=== PATIENT | male | born 1955 | race Native Hawaiian/Other Pacific Islander ===

== ENCOUNTER 2016-09-07 04:55 | Emergency (ER) | payer MEDICAID ==
[2016-09-07 04:56] VITALS: BMI 23.3
[2016-09-07 05:38] LABS: RBC URINE 3058 /hpf (0-3); URINE BILIRUBIN NEGATIVE (NEGATIVE); URINE BLOOD 2+ (NEGATIVE); URINE COLOR Red (YELLOW); URINE GLUCOSE (UA) 1+ mg/dL (Normal); URINE HYALINE CAST >20 /lpf (0-2); URINE KETONE NEGATIVE (NEGATIVE); URINE LEUKOCYTE ESTERASE TRACE Leu/uL (Negative); URINE PROTEIN 2+ mg/dL (NEGATIVE); URINE UROBILINOGEN NORMAL mg/dL (0.2-1.0); WBC CLUMPS MANY /hpf; WBC URINE 1117 /hpf (0-5)
--- NOTE | 2016-09-07 05:53 | C.PDOC ---
Addendum entered and electronically signed by Ivett Cobian PA 09/07/16 11 :34: Disposition Discussed With Dr.: Hawa Tristan Comment: leg bag changed. pt was hydrated, hematuria clearing, urine now pale clear pink. Doctor Will See Patient In The: Hospital Counseled Patient/Family Regarding: Studies Performed, Need For Followup Clinical Impression: Hematuria Disposition: HOME/ ROUTINE Disposition Time: 11:32 Condition: IMPROVED Additional Instructions: Drink increased fluids. Dr Tristan will be in touch with you to arrange future appointment. Return to ER for any worsening symptoms. Instructions: Acute Hematuria (ED) Stand Alone Forms: General Discharge Instructions Original Note: History Of Present Illness 61 year old patient, with a past medical history of hypertension, hypercholesterolemia, hyperlipidemia, benign prostatic hyperplasia with indwelling suprapubic catheter, presents to the ED complaining of painless hematuria since 4 AM. Pt reports speaking with Dr Azalea Franco who advised ED visit and he will see pt in ED. Pt denies dysuria, abdominal pain, fever, vomiting or back pain Time Seen by Provider: 09/07/16 05:14 Chief Complaint (Nursing): Male Genitourinary History Per: Patient History/Exam Limitations: no limitations Onset/Duration Of Symptoms: Days Current Symptoms Are (Timing): Still Present Pain Scale Rating Of: 3 Alleviating Factors: None Recent travel outside of the [place]: No Past Medical History Reviewed: Historical Data, Nursing Documentation, Vital Signs Vital Signs: Last Vital Signs Temp 97.9 F 09/07/16 05:07 Pulse 74 09/07/16 05:07 Resp 16 09/07/16 05:07 BP 155/87 H 09/07/16 05:07 Pulse Ox 97 09/07/16 05:55 - Medical History PMH: Anemia, Benign Prostatic Hyperplasia, HTN, Hypercholesterolemia, Hyperlipidemia Surgical History: CABG (2012) - [facility] Procedures CONTROL BLEEDING IN GENITOURINARY TRACT, ENDO (11/21/15) DESTRUCTION OF BLADDER NECK, VIA OPENING (01/28/16) DILATION OF URETHRA, ENDO (07/04/16) DILATION OF URETHRA, VIA NATURAL OR ARTIFICIAL OPENING (03/22/16) DRAINAGE OF BLADDER WITH DRAINAGE DEVICE, PERC APPROACH (03/22/16) EXCISION OF DESCENDING COLON, ENDO, DIAGN (09/07/15) EXCISION OF LEFT UPPER LEG SKIN, EXTERNAL APPROACH, DIAGN (07/04/16) EXCISION OF STOMACH, ENDO, DIAGN (09/07/15) EXTIRPATION OF MATTER FROM BLADDER, ENDO (11/21/15) FLUOROSCOPY OF KIDNEYS, URETERS AND BLADDER (11/21/15) PLAIN RADIOGRAPHY OF BLADDER AND URETHRA (07/04/16) RESECTION OF PROSTATE, ENDO (01/01/16) Family History: States: Unknown Family Hx - Social History Hx Tobacco Use: No Hx Alcohol Use: Yes (socially) Hx Substance Use: No - Immunization History Hx Tetanus Toxoid Vaccination: No Hx Influenza Vaccination: Yes (06/2015) Hx Pneumococcal Vaccination: Yes Review Of Systems Except As Marked, All Systems Reviewed And Found Negative. Genitourinary: Positive for: Hematuria Physical Exam - Physical Exam Appears: Non-toxic, No Acute Distress Skin: Warm, Dry Eye(s): bilateral: Normal Inspection Gastrointestinal/Abdominal: Normal Exam, Soft, No Tenderness, Other (suprapubic catheter in place) Back: Normal Inspection, No CVA Tenderness ED Course And Treatment O2 Sat by Pulse Oximetry: 97 (RA) Pulse Ox Interpretation: Normal Progress Note: UA reviewed- Spoke with Dr Tristan who called the ED and will come to ER by 7:30 to replace catheter. Pt is stable , comfortable Disposition Counseled Patient/Family Regarding: Diagnosis, Need For Followup - Disposition Disposition: HOME/ ROUTINE Disposition Time: 06:39 Condition: STABLE - Clinical Impression Clinical Impression: Hematuria, UTI (urinary tract infection) - PA / WEB DEVELOPMENT DIRECTOR / Resident Statement MD/DO has reviewed & agrees with the documentation as recorded. - Scribe Statement The provider has reviewed the documentation as recorded by the Scribe Mellisa Duong All medical record entries made by the Scribe were at my direction and personally dictated by me. I have reviewed the chart and agree that the record accurately reflects my personal performance of the history, physical exam, medical decision making, and the department course for this patient. I have also personally directed, reviewed, and agree with the discharge instructions and disposition. Physician Patient Turnover Patient Signed Over To: Ivett Cobian Handoff Comments: Pending Dr tristan - evaluation
[2016-09-07 10:49] VITALS: TEMP 97.3
[2016-09-07 12:02] VITALS: BP 152/81; PULSE 70; RESP 16; O2SAT 98
== END 2016-09-07 12:03 | disposition home or self-care (01) ==
LOC: C.ER 04:55
DX: N39.0 Urinary tract infection, site not specified (principal); R31.9 Hematuria, unspecified

== ENCOUNTER 2016-10-28 09:00 | Day surgery (SDC) | payer MEDICAID ==
[2016-10-28 21:13] LABS: ALB/GLOB RATIO 1.2 (1.0-2.1); ALKALINE PHOSPHATASE 78 U/L (38-126); ALT/SGPT 15 U/L (21-72); AST/SGOT 40 U/L (17-59); BLOOD UREA NITROGEN 12 mg/dL (9-20); CALCIUM 8.6 mg/dl (8.6-10.4); CARBON DIOXIDE 22 mmol/L (22-30); CHLORIDE 103 mmol/L (98-107); GFR AFRICAN-AMERICAN > 60; GLUCOSE,RANDOM 88 mg/dL (75-110); POTASSIUM 4.4 mmol/L (3.6-5.2); SODIUM 137 mmol/L (132-148); TOTAL PROTEIN 8.1 g/dL (6.3-8.3)
--- NOTE | 2016-10-28 21:26 | RAD ---
PROCEDURE: CHEST RADIOGRAPH, 1 VIEW HISTORY: COMPARISON: None available. FINDINGS: LUNGS: No focal infiltrate or effusion. PLEURA: No pneumothorax or pleural fluid seen. CARDIOVASCULAR: Status post median sternotomy and CABG. OSSEOUS STRUCTURES: No significant abnormalities. VISUALIZED UPPER ABDOMEN: Normal. OTHER FINDINGS: None. IMPRESSION: No active disease.
[2016-10-28 22:35] LABS: BASO # 0.1 K/uL (0.0-0.2); BASO % 1.1 % (0.0-2.0); EOS # 0.3 K/uL (0.0-0.7); EOS % 4.5 % (0.0-4.0); HEMATOCRIT 43.3 % (35.0-51.0); LYMPH # 1.5 K/uL (1.0-4.3); LYMPH % 19.2 % (20.0-40.0); MEAN CELL VOLUME 88.7 fL (80.0-94.0); MEAN CORPUSCULAR HEMOGLOBIN 29.3 pg (27.0-31.0); MEAN PLATELET VOLUME 7.4 fL (7.2-11.7); MONO # 0.7 K/uL (0.0-0.8); MONO % 9.7 % (0.0-10.0); NRBC % 0.1 % (0.0-2.0); RED CELL DISTRIBUTION WIDTH 14.2 % (11.5-14.5); WHITE BLOOD COUNT 7.6 K/uL (4.8-10.8)
--- NOTE | 2016-10-29 15:22 | RAD ---
PROCEDURE: Cystogram HISTORY: URINARY RETENTION COMPARISON: 06/15/2016 TECHNIQUE: A percussion welding machine operator radiograph demonstrates an unremarkable bowel gas pattern. No masses or abnormal intra-abdominal calcifications are seen. FINDINGS: The examination is performed 3 suprapubic tube. There is a large right-sided bladder diverticulum. Catheter balloon is seen inflated within the urinary bladder. There is contrast filling an irregularly dilated prostatic and posterior penile urethra. There is a small amount of retrograde filling of the distal left ureter. IMPRESSION: Right-sided bladder diverticulum.
--- NOTE | 2016-10-29 15:24 | RAD ---
PROCEDURE: Intraoperative fluoroscopy HISTORY: URETERAL STRICTURE, RETENTION COMPARISON: Cystogram 10/28/2016 TECHNIQUE: Intraoperative fluoroscopy was provided for a cystogram. Total time of fluoroscopy is less than 1 hour. FINDINGS: Seven fluoroscopic spot films are submitted. Films are on file for review. IMPRESSION: Fluoroscopy provided.
--- NOTE | 2016-11-07 13:54 | OP ---
PROCEDURE DATE: 10/28/2016 PREOPERATIVE DIAGNOSES: Urinary retention, urethral stricture disease, severe voiding dysfunction, C hristmas tree bladder, hematuria and catheter difficulty. POSTOPERATIVE DIAGNOSES: Urinary retention, urethral stricture disease, severe voiding dysfunction, Sanford tree bladder, hematuria and catheter difficulty. PROCEDURE: Today is a removal of a cystostomy tube, insertion of a new cystostomy tube, and a cystog blake, and a retrograde urethrogram. FINDINGS: Contrast seems to go from the tip of the penis all the way through and through, which is r elatively new because previously it was fairly blocked. We have had a few times where it has gone through. However, despite that, the other finding is I can not get even a 4-Bulgarian, even a 3-Bulgarian actually for that matter, filiform through that block, but at least contrast is now going through. The bladder, everything else, there are no other complicatio ns and the findings are similar for trabeculated bladder with cellules and Sanford tree pattern (it is possibly even, as mentioned previously, the cystostomy tube is in a diverticulum rather than thro ugh the wall, difficult to tell). At the termination of the procedure, the cystostomy tube was in good location. There were no complications. BLOOD LOSS: Less than 10 mL INDICATIONS: See the history and physical for further details. It is a separately dictated note. T he patient presented as an emergency for the above-listed procedure. PROCEDURE ITSELF: After obtaining informed consent, the patient was placed on the table, routine mon itors placed, timeouts were called to confirm the patient and positioning. The patient requires orion le sedation for the procedure. Anesthesia gives this. The procedure continues. We remove the old catheter, insert a new catheter, make sure it is in place . We do a cystogram and then today actually, we also wanted to see if we could get through. The alondra ramirez has been asking, and I am still trying, to see if we can get him a urethrotomy under direct visi on or a cut to the light approach. We have tried a lot of different things before. The other thing I have been asking the patient is to talk to his insurance company about getting a second opinion and even consider urethral stricture repair, open repair, which is something that I do not do, but we ar e working on that I want to make sure the catheter is in place and working well. So the patient was on the table. We removed the catheter, inserted a new catheter, did a cystogram, did a retrograde urethrogram. Contrast is noted to trickle through. Films are submitted to the radiologist. Further plans will follow. Salvador Tristan MD cc: [phone] TT: 11/07/2016 13:53:38 en
== END 2016-10-28 15:00 | disposition home or self-care (01) ==
LOC: C.ER 09:40 → C.SDS 11:00 → C.ER 18:16 → C.SDS 18:17 → C.ER 18:20 → C.SDS 18:20
PROVIDERS: ATTEND Urology
DX: R33.9 Retention of urine, unspecified (principal); N35.9 Urethral stricture, unspecified; A18.1 Tuberculosis of genitourinary system

== ENCOUNTER 2016-10-31 10:35 | Observation (INO) | payer MEDICAID ==
[2016-10-31 10:36] VITALS: BMI 23.3
--- NOTE | 2016-10-31 11:48 | C.PDOC ---
History Of Present Illness 61-year-old male, presents to the emergency department with complaints of new onset suprapubic os pain for the past several days. Patient had a routine suprapubic catheter change on 10/28. States that since then, he has been experiencing pain when he is pushing to have a bowel movement. No abdominal pain or herniation. States the os is draining normal urine. Patient is on Colace. No straining or hard movements. No rectal pain. patient states "It feels like I want to go now, but I'm afraid to because it hurts." NEW ONSET SUPRAPUBIC OS PAIN X SEVERAL DAYS. PT HAD ROUTINE SUPRAPUBIC CATH CHANGED 10/28. SINCE THEN, PUSHING FOR BM, HAS PAIN TO SUPRAPUBIC CATH. NO PAIN OR HERNIATION. DRAINING NORMAL URINE. ON COLACE. NO STRAINING OR HARD MOVEMENTS. NO ABD OR RECTAL PAIN. "FEELS LIKE I WANT TO GO NOW, BUT IM AFRAID TO BECAUSE IT HURTS" EXAM: SUPRAPUBIC TUBE IN PLACE. NO BLEEDING, HERNIATION TENDERNESS Time Seen by Provider: 10/31/16 10:45 Chief Complaint (Nursing): Male Genitourinary History Per: Patient History/Exam Limitations: no limitations Onset/Duration Of Symptoms: Days Current Symptoms Are (Timing): Still Present Severity: Moderate Past Medical History Reviewed: Historical Data, Nursing Documentation, Vital Signs Vital Signs: Last Vital Signs Temp 98.6 F 10/31/16 10:44 Pulse 83 10/31/16 10:44 Resp 17 10/31/16 10:44 BP 144/79 10/31/16 10:44 Pulse Ox 97 10/31/16 12:28 - Medical History PMH: Anemia, Benign Prostatic Hyperplasia, HTN, Hypercholesterolemia, Hyperlipidemia Denies: Chronic Kidney Disease Surgical History: CABG (2012) - [facility] [place] Procedures CONTROL BLEEDING IN GENITOURINARY TRACT, ENDO (11/21/15) DESTRUCTION OF BLADDER NECK, VIA OPENING (01/28/16) DILATION OF URETHRA, ENDO (07/04/16) DILATION OF URETHRA, VIA NATURAL OR ARTIFICIAL OPENING (03/22/16) DRAINAGE OF BLADDER WITH DRAINAGE DEVICE, PERC APPROACH (03/22/16) EXCISION OF DESCENDING COLON, ENDO, DIAGN (09/07/15) EXCISION OF LEFT UPPER LEG SKIN, EXTERNAL APPROACH, DIAGN (07/04/16) EXCISION OF STOMACH, ENDO, DIAGN (09/07/15) EXTIRPATION OF MATTER FROM BLADDER, ENDO (11/21/15) FLUOROSCOPY OF KIDNEYS, URETERS AND BLADDER (11/21/15) PLAIN RADIOGRAPHY OF BLADDER AND URETHRA (07/04/16) RESECTION OF PROSTATE, ENDO (01/01/16) Family History: States: Unknown Family Hx - Social History Hx Tobacco Use: No Hx Alcohol Use: Yes (socially) Hx Substance Use: No - Immunization History Hx Tetanus Toxoid Vaccination: No Hx Influenza Vaccination: Yes (06/2015) Hx Pneumococcal Vaccination: Yes Review Of Systems Except As Marked, All Systems Reviewed And Found Negative. Constitutional: Negative for: Fever Gastrointestinal: Negative for: Vomiting, Abdominal Pain Genitourinary: Negative for: Dysuria, Frequency, Penile Discharge, Scrotal Pain , Rash Musculoskeletal: Negative for: Back Pain Skin: Negative for: Rash Neurological: Negative for: Headache, Dizziness Physical Exam - Physical Exam Appears: Non-toxic, No Acute Distress Skin: Warm, Dry, No Rash Eye(s): bilateral: Normal Inspection Nose: Normal Oral Mucosa: Moist Lips: Normal Appearing Neck: Normal ROM Cardiovascular: Rhythm Regular, No Murmur Respiratory: Normal Breath Sounds, No Accessory Muscle Use Gastrointestinal/Abdominal: Soft, No Tenderness, Other (SUPRAPUBIC TUBE IN PLACE. NO BLEEDING, HERNIATION, OR TENDERNESS) Neurological/Psych: Oriented x3 ED Course And Treatment O2 Sat by Pulse Oximetry: 97 Progress - Re-Evaluation Re-evaluation Note: 10/31/16 12:02 D/W DR Yogesh TRISTAN AWARE OF ER FINDINGS. STATES TO ADMIT TO HIM, WILL TAKE HIM TO O.R. TOMORROW DUE TO COMPLICATED ANATOMY. NO LABS REQUIRED. PT REQUESTING ENEMA TO HELP BM. - Data Reviewed Data Reviewed: Old records - Continuity of Care Discussed patient case with:: Patient Discussed pt. case with [facility] consultant/specialty: Urology Disposition Counseled Patient/Family Regarding: Diagnosis - Disposition Disposition: HOME/ ROUTINE Disposition Time: 12:03 Condition: STABLE - POA Present On Arrival: None - Clinical Impression Clinical Impression: Suprapubic catheter dysfunction - Scribe Statement The provider has reviewed the documentation as recorded by the Chapincito Poole All medical record entries made by the Mishelibyogesh were at my direction and personally dictated by me. I have reviewed the chart and agree that the record accurately reflects my personal performance of the history, physical exam, medical decision making, and the department course for this patient. I have also personally directed, reviewed, and agree with the discharge instructions and disposition. Decision To Admit - Pt Status Changed To: Hospital Disposition Of: Observation - . Bed Request Type: Regular Admitting Physician: Tomy Tristan Patient Diagnosis: Suprapubic catheter dysfunction
[2016-10-31] MEDS: Hydrocortisone 2.5% Rectal Cream(30 gm) PR SCH (18:15)
[2016-11-01] MEDS: Hydrocortisone 2.5% Rectal Cream(30 gm) PR SCH ×2 (10:21→17:40)
[2016-11-02] MEDS ORDERED: Pneumococcal 23-Valent Vaccine IM ONE (10:00)
[2016-11-02] MEDS ORDERED: Iohexol 240 200 ML IJ ONE (16:42)
[2016-11-02] MEDS ORDERED: Lactated Ringer's 1,000 ML IV ONE (16:45)
[2016-11-02] MEDS ORDERED: Midazolam 2 MG/2 ML VIAL ONE (16:46)
[2016-11-02] MEDS ORDERED: Propofol 10 mg/ml Inj (20 ML) ONE (16:46)
[2016-11-02] MEDS: Hydrocortisone 2.5% Rectal Cream(30 gm) PR SCH (20:30)
--- NOTE | 2016-11-02 21:35 | PN ---
DATE: 11/02/2016 See the history and physical. We admitted the patient with catheter pain. We were not able today to get to the operating room. It is currently about 7 p.m. at night. If they have not kept the patient n.p.o. He was feeling and tired. We fed the patient and we are going to try again for tomorrow. There are no other changes noted. Salvador Tristan MD cc: [phone] TT: 11/02/2016 21:34:58 Confirmation # [id number] Dictation # [id number] mn
--- NOTE | 2016-11-02 21:44 | OP ---
PROCEDURE DATE: 11/02/2016 PREOPERATIVE DIAGNOSES: Urinary retention, voiding dysfunction, suprapubic catheter failure and pain . PROCEDURE: Removal of suprapubic catheter, insertion of new catheter and cystogram. SURGEON: Salvador Tristan MD BLOOD LOSS: Less than 10 mL. COMPLICATIONS: None. FINDINGS: The catheter is in place, but the patient was complaining of pain and discomfort. He has had many tubes and he is not complaining, so I am glad we changed it, but there were no abnormal findings. PROCEDURE: After obtaining informed consent, the patient placed on the table, routine monitors place d, timeouts were called . The old was removed and a new one was inserted, but grossly it looks like it is in place. The new one is in the same location. Cystogram confirmed its positioning. The patient tolerated thi s without complication. Again, we do this always with the patient with a little anesthesia. The pat ashley is not able to tolerate the procedure without such. Salvador Tristan MD cc: [phone] TT: 11/02/2016 21:44:09 brandy
--- NOTE | 2016-11-02 21:59 | HP ---
REASON FOR ADMISSION: Catheter failure. HISTORY OF PRESENT ILLNESS: A very pleasant gentleman who has a lot of anxiety, very pleasant about the whole matter who has urethral stricture, urinary retention and has a cystostomy tube. He called me and said it is not working properly. He comes to the ER. It is working, but he said it is hurtin g, is painful, so we are going to admit him to the hospital. He does not like it changed without a l ittle anesthesia, plus he has a very trabeculated bladder with a Sanford tree bladder. So we will change with anesthesia. Once we make sure he is stable, but we are admitting him to the hospital. T he patient has much anxiety and difficult for him to care for the catheter alone. PAST MEDICAL AND SURGICAL HISTORY: Otherwise, no changes. The patient right now documented he previ ous was a patient of . He is here now. REVIEW OF SYSTEMS: Listed above, noncontributory. SOCIAL HISTORY: As mentioned above. MEDICATIONS: See the chart. He is going to see Dr. Prince. This is his new doctor. REVIEW OF SYSTEMS: Listed above, noncontributory. PHYSICAL EXAMINATION: GENERAL: He is well-nourished male in no apparent distress. VITAL SIGNS: Within normal limits. . GENITOURINARY: Normal male. Cystostomy tube in good location. He has normal phallus with no testicular masses. DIAGNOSES: Urinary retention, urethral stricture disease, severe voiding dysfunction and much anxiet y. So I have discussed options with the patient. Today, we are going to admit him to the hospital and t hen depending on the schedule, we are going to try to get him on the schedule for a change. We may e yudith consider cystoscopy depending. The last time we did this was , and he said that the cath eter has been bothering him; it was 10/28/2016. At that time, the patient had urine very nicely. Just now is having some trouble. PLAN: So the plan is as follows: Admission to the hospital, routine maintenance orders and then fur ther plans will follow. Salvador Tristan MD cc: [phone] TT: 11/02/2016 21:58:01 mn
[2016-11-03 08:26] VITALS: BP 128/77; PULSE 56; RESP 20; TEMP 98.9; O2SAT 97
[2016-11-03] MEDS ORDERED: Ergocalciferol 50,000 Intl Units Cap PO SCH (10:00)
--- NOTE | 2016-11-03 15:35 | RAD ---
PROCEDURE: Cystogram HISTORY: URINARY RETENTION COMPARISON: 10/28/2016 TECHNIQUE: Retrograde cystography was performed by Dr. Tomy Tristan. FINDINGS: A big 6 dealer radiograph demonstrates a suprapubic cystostomy tube. The bowel gas pattern is unremarkable. A single frontal view new from the cystogram demonstrates filling of the previously demonstrated right-sided bladder diverticulum. There is irregularity of the left lateral wall of the urinary bladder likely due to incomplete distention of the bladder. A postvoid film is submitted, demonstrating no additional findings. IMPRESSION: Right-sided bladder diverticulum. Please see the report of cystography by Dr. Tristan.
--- NOTE | 2016-11-25 19:57 | DS ---
The patient is admitted with urinary retention and voiding dysfunction, here for catheter issues. See the hospital course and daily progress notes to see how the patient did. At the time of discharge, he is in stable condition with an indwelling suprapubic catheter. Draining well. PLAN: Outpatient trial and follow. Overall, his hospital stay is otherwise unremarkable. Salvador Tristan MD cc: [phone] TT: 11/25/2016 19:56:15 pn
== END 2016-11-03 11:59 | disposition home or self-care (01) ==
LOC: C.ER 10:35 → C.9E 12:04 → C.6T 12:33
PROVIDERS: ADMIT Urology; ATTEND Urology
DX: T83.090A Other mechanical complication of cystostomy catheter, initial encounter (principal); R33.8 Other retention of urine; N32.89 Other specified disorders of bladder; I10 Essential (primary) hypertension; F41.9 Anxiety disorder, unspecified; E78.5 Hyperlipidemia, unspecified
CPT/HCPCS: 51705; 74430; 99285; C1769; G0378; J7120

== ENCOUNTER 2016-12-05 17:30 | Emergency (ER) | payer MEDICAID ==
[2016-12-05 17:31] VITALS: BMI 23.3
[2016-12-05 17:47] VITALS: O2SAT 99
--- NOTE | 2016-12-05 18:47 | C.PDOC ---
History Of Present Illness Patient is a 61 year old male who presents to the ER with a complaint of crusting around his suprapubic catheter; catheter was done by Dr. Tomy Tristan. Patient is requesting admission because he is afraid it will bleed again. Denies hematuria or abdominal pain. Time Seen by Provider: 12/05/16 18:03 Chief Complaint (Nursing): Medical Clearance History Per: Patient History/Exam Limitations: no limitations Onset/Duration Of Symptoms: Hrs Current Symptoms Are (Timing): Still Present Recent travel outside of the [place]: No Past Medical History Reviewed: Historical Data, Nursing Documentation, Vital Signs Vital Signs: Last Vital Signs Temp 98.9 F 12/05/16 19:46 Pulse 74 12/05/16 19:46 Resp 18 12/05/16 19:46 BP 144/86 12/05/16 19:46 Pulse Ox 99 12/05/16 19:46 - Medical History PMH: Anemia, Benign Prostatic Hyperplasia, HTN, Hypercholesterolemia, Hyperlipidemia Surgical History: CABG (2013 X3) - [facility] Procedures CONTROL BLEEDING IN GENITOURINARY TRACT, ENDO (11/21/15) DESTRUCTION OF BLADDER NECK, VIA OPENING (01/28/16) DILATION OF URETHRA, ENDO (07/04/16) DILATION OF URETHRA, VIA NATURAL OR ARTIFICIAL OPENING (03/22/16) DRAINAGE OF BLADDER WITH DRAINAGE DEVICE, PERC APPROACH (03/22/16) EXCISION OF DESCENDING COLON, ENDO, DIAGN (09/07/15) EXCISION OF LEFT UPPER LEG SKIN, EXTERNAL APPROACH, DIAGN (07/04/16) EXCISION OF STOMACH, ENDO, DIAGN (09/07/15) EXTIRPATION OF MATTER FROM BLADDER, ENDO (11/21/15) FLUOROSCOPY OF KIDNEYS, URETERS AND BLADDER (11/21/15) PLAIN RADIOGRAPHY OF BLADDER AND URETHRA (07/04/16) RESECTION OF PROSTATE, ENDO (01/01/16) Family History: States: Unknown Family Hx - Social History Hx Tobacco Use: No Hx Alcohol Use: No Hx Substance Use: No - Immunization History Hx Tetanus Toxoid Vaccination: No Hx Influenza Vaccination: Yes Hx Pneumococcal Vaccination: Yes Review Of Systems Gastrointestinal: Positive for: Other (Crusting around suprapubic catheter). Negative for: Abdominal Pain Genitourinary: Negative for: Hematuria Physical Exam - Physical Exam Appears: Non-toxic, No Acute Distress Skin: Normal Color, Warm, Dry Head: Atraumatic, Normacephalic Oral Mucosa: Moist Chest: Symmetrical, No Tenderness Cardiovascular: Rhythm Regular, No Murmur Respiratory: Normal Breath Sounds, No Rales, No Rhonchi, No Wheezing Gastrointestinal/Abdominal: Soft, No Tenderness, Other (Crusting around suprapubic catheter, no bleeding, tenderness or erythema. Clear urine passing to bag.) Neurological/Psych: Oriented x3, Normal Speech, Normal Cognition ED Course And Treatment - Laboratory Results Lab Interpretation: Normal (UA 18 WBC's) O2 Sat by Pulse Oximetry: 99 (Room air) Pulse Ox Interpretation: Normal Reevaluation Time: 19:11 Reassessment Condition: Improved - Physician Consult Information Outcome Of Conversation: 1904: d/w Dr. Tomy Tristan, nicolette to send home and f/u in office tomorrow 829 Medical Decision Making Medical Decision Making: mild crusting/blood @ suprapubic cath site. no infection Cleaned and bandaged f/u in Urology office tomorrow AM PRN on discharge pt had been wearing dark sunglasses throughout the eval and revealed a goopy dark greenish b/l eye discharge c/w bacterial conjunctivitis Pt claims this is a seasonal typical presentation for him. Garomycin opth drops Rx and explained. pt prefers to f/u with Optho or his PMD tomorrow with ? insight to this dx. Disposition Doctor Will See Patient In The: Office Counseled Patient/Family Regarding: Studies Performed, Diagnosis - Disposition Referrals: King Prince MD [Staff Provider] - Tomy Tristan MD [Staff Provider] - Disposition: HOME/ ROUTINE Disposition Time: 19:12 Condition: GOOD Additional Instructions: keep clean and bandaged Follow-up with Dr. Tomy Tristan in his office tomorrow/Tuesday Conjunctivitis 2 drops to each eye every 4 hours for 5 days Follow-up with Dr. Prince in 1-2 days for re-evaluation Prescriptions: Gentamicin Sulfate [Garamycin 0.3% Opth] 2 drop OS Q4H #1 bottle Instructions: How to Care for Your Suprapubic Catheter (ED), Conjunctivitis (ED ) - Clinical Impression Clinical Impression: Suprapubic catheter dysfunction - Scribe Statement The provider has reviewed the documentation as recorded by the Scribe King Mays All medical record entries made by the Mishelibyogesh were at my direction and personally dictated by me. I have reviewed the chart and agree that the record accurately reflects my personal performance of the history, physical exam, medical decision making, and the department course for this patient. I have also personally directed, reviewed, and agree with the discharge instructions and disposition.
[2016-12-05 19:02] LABS: RBC URINE < 1 /hpf (0-3); URINE BACTERIA MOD (<OCC); URINE BILIRUBIN NEGATIVE (NEGATIVE); URINE BLOOD 1+ (NEGATIVE); URINE COLOR Yellow (YELLOW); URINE GLUCOSE (UA) NORMAL (Normal); URINE KETONE NEGATIVE (NEGATIVE); URINE LEUKOCYTE ESTERASE 3+ Leu/uL (Negative); URINE PROTEIN NEGATIVE (NEGATIVE); URINE UROBILINOGEN NORMAL mg/dL (0.2-1.0); WBC URINE 18 /hpf (0-5)
[2016-12-05 19:47] VITALS: BP 144/86; PULSE 74; RESP 18; TEMP 98.9
== END 2016-12-05 19:46 | disposition home or self-care (01) ==
LOC: C.ER 17:30
DX: T83.89XA Other specified complication of genitourinary prosthetic devices, implants and grafts, initial encounter (principal); R23.4 Changes in skin texture

== ENCOUNTER 2017-01-18 10:50 | Observation (INO) | payer MEDICAID ==
[2017-01-18 10:50] VITALS: BMI 23.3
--- NOTE | 2017-01-18 12:25 | C.PDOC ---
History Of Present Illness 61 y/o male presents to ED with complaints of difficulty urinating and abdominal pain. Patient also reports not getting flow through Suprapubic catheter and requests a replacement. Patient denies fever, chills, dysuria, n/v/ d or any other complaints at this time. Time Seen by Provider: 01/18/17 11:24 Chief Complaint (Nursing): Abdominal Pain History Per: Patient History/Exam Limitations: no limitations Onset/Duration Of Symptoms: Days Current Symptoms Are (Timing): Still Present Quality Of Discomfort: "Pain" Past Medical History Reviewed: Historical Data, Nursing Documentation, Vital Signs Vital Signs: Last Vital Signs Temp 97.9 F 01/18/17 18:25 Pulse 72 01/18/17 18:25 Resp 18 01/18/17 18:25 BP 150/87 01/18/17 18:25 Pulse Ox 98 01/18/17 18:25 - Medical History PMH: Anemia, Benign Prostatic Hyperplasia, HTN, Hypercholesterolemia, Hyperlipidemia Surgical History: CABG (2013 X3) - [facility] Procedures CONTROL BLEEDING IN GENITOURINARY TRACT, ENDO (11/21/15) DESTRUCTION OF BLADDER NECK, VIA OPENING (01/28/16) DILATION OF URETHRA, ENDO (07/04/16) DILATION OF URETHRA, VIA NATURAL OR ARTIFICIAL OPENING (03/22/16) DRAINAGE OF BLADDER WITH DRAINAGE DEVICE, PERC APPROACH (03/22/16) EXCISION OF DESCENDING COLON, ENDO, DIAGN (09/07/15) EXCISION OF LEFT UPPER LEG SKIN, EXTERNAL APPROACH, DIAGN (07/04/16) EXCISION OF STOMACH, ENDO, DIAGN (09/07/15) EXTIRPATION OF MATTER FROM BLADDER, ENDO (11/21/15) FLUOROSCOPY OF KIDNEYS, URETERS AND BLADDER (11/21/15) PLAIN RADIOGRAPHY OF BLADDER AND URETHRA (07/04/16) RESECTION OF PROSTATE, ENDO (01/01/16) Family History: States: Unknown Family Hx - Social History Hx Tobacco Use: No Hx Alcohol Use: No Hx Substance Use: No - Immunization History Hx Tetanus Toxoid Vaccination: No Hx Influenza Vaccination: Yes Hx Pneumococcal Vaccination: Yes Review Of Systems Constitutional: Negative for: Fever, Chills Gastrointestinal: Positive for: Abdominal Pain. Negative for: Nausea, Vomiting , Diarrhea Genitourinary: Negative for: Dysuria Musculoskeletal: Negative for: Back Pain Skin: Negative for: Rash Physical Exam - Physical Exam Appears: No Acute Distress Skin: Normal Color, Warm, No Rash Head: Atraumatic, Normacephalic Eye(s): bilateral: PERRL, EOMI Oral Mucosa: Moist Neck: Supple Chest: Symmetrical, No Tenderness Cardiovascular: Rhythm Regular Respiratory: Normal Breath Sounds, No Rales, No Rhonchi, No Wheezing Gastrointestinal/Abdominal: Soft, No Guarding, No Rebound, Other (Mild suprapubic discomfort) Back: No CVA Tenderness Extremity: No Calf Tenderness, No Swelling Neurological/Psych: Oriented x3, Normal Speech ED Course And Treatment - Laboratory Results Result Diagrams: 01/18/17 12:31 01/18/17 12:31 O2 Sat by Pulse Oximetry: 96 (RA) Pulse Ox Interpretation: Normal Disposition Discussed With DrIleana: Tomy Tristan Doctor Will See Patient In The: Hospital - Disposition Disposition Time: 13:35 Condition: STABLE - Clinical Impression Clinical Impression: Complication, suprapubic catheter obstruction - Scribe Statement The provider has reviewed the documentation as recorded by the Scribyogesh Huntley All medical record entries made by the Scribe were at my direction and personally dictated by me. I have reviewed the chart and agree that the record accurately reflects my personal performance of the history, physical exam, medical decision making, and the department course for this patient. I have also personally directed, reviewed, and agree with the discharge instructions and disposition. Decision To Admit - Pt Status Changed To: Hospital Disposition Of: Observation - . Bed Request Type: Regular Patient Diagnosis: Complication, suprapubic catheter obstruction
[2017-01-18 12:38] LABS: BASO # 0.1 K/uL (0.0-0.2); BASO % 0.8 % (0.0-2.0); EOS # 0.3 K/uL (0.0-0.7); EOS % 4.5 % (0.0-4.0); HEMATOCRIT 39.2 % (35.0-51.0); LYMPH # 1.3 K/uL (1.0-4.3); LYMPH % 19.6 % (20.0-40.0); MEAN CELL VOLUME 88.5 fL (80.0-94.0); MEAN CORPUSCULAR HEMOGLOBIN 29.4 pg (27.0-31.0); MEAN CORPUSCULAR HGB CONC 33.2 g/dL (33.0-37.0); MEAN PLATELET VOLUME 6.8 fL (7.2-11.7); MONO # 0.7 K/uL (0.0-0.8); MONO % 10.2 % (0.0-10.0); RED CELL DISTRIBUTION WIDTH 13.8 % (11.5-14.5); WHITE BLOOD COUNT 6.5 K/uL (4.8-10.8)
[2017-01-18 12:49] LABS: CHLORIDE 100 mmol/L (98-107)
[2017-01-18 12:50] LABS: POTASSIUM 3.6 mmol/L (3.6-5.2); SODIUM 138 mmol/L (132-148)
[2017-01-18 12:52] LABS: GFR AFRICAN-AMERICAN > 60
[2017-01-18 12:53] LABS: ALKALINE PHOSPHATASE 70 U/L (38-126); ALT/SGPT 26 U/L (21-72); AST/SGOT 25 U/L (17-59); BILIRUBIN,TOTAL 0.5 mg/dL (0.2-1.3); BLOOD UREA NITROGEN 9 mg/dL (9-20); CARBON DIOXIDE 24 mmol/L (22-30); GLUCOSE,RANDOM 89 mg/dL (75-110); TOTAL PROTEIN 7.5 g/dL (6.3-8.3)
[2017-01-18 12:54] LABS: CALCIUM 8.7 mg/dl (8.6-10.4)
[2017-01-18 13:41] LABS: RBC URINE 24 /hpf (0-3); URINE BILIRUBIN NEGATIVE (NEGATIVE); URINE BLOOD 1+ (NEGATIVE); URINE COLOR Yellow (YELLOW); URINE GLUCOSE (UA) NORMAL (Normal); URINE KETONE NEGATIVE (NEGATIVE); URINE LEUKOCYTE ESTERASE 3+ Leu/uL (Negative); URINE PROTEIN 2+ mg/dL (NEGATIVE); URINE UROBILINOGEN NORMAL mg/dL (0.2-1.0); WBC URINE 127 /hpf (0-5)
[2017-01-19 00:24] VITALS: BP 154/79; PULSE 76; TEMP 98.1
[2017-01-19] MEDS: Hydrocortisone 2.5% Rectal Cream(30 gm) PR SCH ×2 (00:56→09:59)
[2017-01-19] MEDS: Gentamicin Sulfate 0.3% Ophth SOLN OS SCH ×3 (01:00→10:00)
[2017-01-19 01:15] VITALS: RESP 18
[2017-01-19] MEDS ORDERED: FINASTERIDE 1 MG PO SCH (10:00)
[2017-01-19] MEDS ORDERED: Ergocalciferol 50,000 Intl Units Cap PO SCH (10:00)
[2017-01-19] MEDS ORDERED: FENOFIBRATE MICRONIZED 130 MG PO SCH (10:00)
[2017-01-27 13:39] VITALS: O2SAT 96
--- NOTE | 2017-01-31 21:26 | OP ---
PROCEDURE DATE: 01/18/2017 PREOPERATIVE DIAGNOSES: Urinary retention, voiding dysfunction, and catheter dysfunction. POSTOPERATIVE DIAGNOSES: Urinary retention, voiding dysfunction, and catheter dysfunction. PROCEDURES: Change of cystostomy tube, cystogram. SURGEON: Tomy Tristan MD ESTIMATED BLOOD LOSS: Less than 10 mL COMPLICATIONS: There were no complications. INDICATIONS: See history and physical for further details. This is a very pleasant but difficult for compliance for various reasons, but he is very pleasant about the whole matter, but he has a heavy urethral stricture which we were not able to open. He was here now for the above procedure. I discussed them also possibility of trying to dilate his urethra. See the previously dictated notes. Sometimes we do, sometimes we do not try, mostly we have to do with the patient. Sometimes he was very worried about causing bleeding and pain in his urethra. Today, we are changing the catheter. DESCRIPTION OF PROCEDURE: After obtaining informed consent, the patient was placed on the table. Routine monitors were placed. Timeout was called to confirm the patient and positioning. We removed the old catheter and inserted the new catheter. We irrigated the catheter. The patient tolerated without complication. Description of procedure: The patient has a new cystoscopy tube. 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 Salvador Tristan MD
--- NOTE | 2017-02-01 06:00 | HP ---
UROLOGY ADMISSION HISTORY AND PHYSICAL REASON FOR ADMISSION: Nonfunctioning suprapubic catheter and urinary retention. HISTORY OF PRESENT ILLNESS: Mr. Fausto Hines is a very pleasant, very anxious gentleman who we have been following with an indwelling suprapubic. Originally, he had urethral stricture that was dilated. He subsequently had a TURP. He was referred to me from another urologist who I have also been in touch with. The patient happens to have many keloids formed. As evidenced, see below the physical exam. We have been trying to see if we can open up the urethral stricture. I discussed with the patient's finding another urologist who will repair it with an open urethroplasty. Today, we have not been successful at this. Mostly, an insurance issue plus the patient has a lot of underlying anxiety for many things. After discussing many options, he waits until the catheter is not working well and then he comes in, which has happened again now today. I have discussed many options with him at length. Today, he is here as an emergency. The catheter is not working, coming through the ER and we will bring him to the OR as rapidly as possible to change the catheter. See the operative report. PAST MEDICAL HISTORY: The patient of Dr. Vicente. Recently, he had some bouts where he was being treated by another doctor for insurance reasons, but he is now back with Dr. Vicente for my understanding from the patient. PAST SURGICAL HISTORY: He has a history of bypass surgery. SOCIAL HISTORY: He lives mostly alone. He is on social security. He has a lot of difficulty with that as well. In terms of just routine maintenance and care, just caring for himself, getting checks, being organized. REVIEW OF SYSTEMS: As listed above. No recent weight loss, chest pain, shortness of breath or the like. MEDICATIONS: See chart. ALLERGIES: NONE. PHYSICAL EXAMINATION: GENERAL: He is a well-nourished male in no apparent distress. VITAL SIGNS: Within normal limits including the chart. HEENT: Sclerae anicteric and noninjected. No oral thrush noted. CHEST: His chest wall is noted to have a tremendous keloids after his bypass surgery. ABDOMEN: He has other scars noted. He has a normal male phallus with discharge. His suprapubic site is as follows. It is encrusted. There is actually tremendous amount of granulation tissue around the suprapubic site more than expected. not examined in people with suprapubic catheters frequently and often and he has more scarring just around that area and granulation tissue that is just formed naturally. In terms of the care, it is also encrusted and just not well maintained. He has a normal male phallus with discharge and no testicular masses. Rectal exam was deferred consistent with above mentioned now about 20-30 g prostate. DIAGNOSES: Urethral stricture disease, urinary retention. ASSESSMENT: In summary, he is a very pleasant gentleman who has the above-mentioned urethral stricture and urinary retention. Previously, we had done a PVP GreenLight laser TURP. His prostate is fairly opened, but we cannot get the urethral stricture opened. We tried cutting to the light, tried different techniques with extra hands in the operating room previously. I am still not able to really open it. I discussed with the patient many options. We are going to change the cystoscopy tube. At some point, we are going to try again cutting to the light, maybe having second urologist rather than just a building services technician in the room. I have also discussed with him that we prefer him to get open surgery. We may have him returned to his original urologist. We will have discussed all these options. PLAN: For now, we are going to bring him to the operating room, change the catheter, do a cystogram, and then further plans will follow. Salvador Tristan MD
== END 2017-01-19 11:20 | disposition home or self-care (01) ==
LOC: C.ER 10:50 → C.SDS 12:49 → C.9E 19:16 → C.3T 20:46
PROVIDERS: ADMIT Urology; ATTEND Urology
DX: T83.098A Other mechanical complication of other urinary catheter, initial encounter (principal); R33.8 Other retention of urine; N40.1 Benign prostatic hyperplasia with lower urinary tract symptoms; I10 Essential (primary) hypertension; F41.9 Anxiety disorder, unspecified; E78.5 Hyperlipidemia, unspecified
CPT/HCPCS: 51705; 80053; 81001; 85025; 87086; 87181; 99285; G0378

== ENCOUNTER 2017-01-25 12:25 | Day surgery (SDC) | payer MEDICAID ==
[2017-01-24 07:22] VITALS: BMI 24.3
[2017-01-25] MEDS ORDERED: cefTRIAXone IV 1 gm in Dextros 50 ML IVPB ONE (14:59)
[2017-01-25] MEDS ORDERED: Lactated Ringer's 500 ML IV ONE (15:00)
[2017-01-25] MEDS ORDERED: Propofol 10 mg/ml Inj (20 ML) ONE (15:12)
[2017-01-25] MEDS ORDERED: Midazolam 2 MG/2 ML VIAL ONE (15:12)
[2017-01-25] MEDS ORDERED: Iohexol 240 200 ML IJ ONE (15:17)
[2017-01-25] MEDS ORDERED: HYDROmorphone 0.5 mg/0.5 ml ISec IVP PRN (15:35)
[2017-01-25] MEDS ORDERED: Acetaminophen-Codeine 300/30 mg Tab PO PRN (15:52)
--- NOTE | 2017-01-25 16:07 | RAD ---
PROCEDURE: Fluoroscopy up to 1 hr. HISTORY: Ureteral STRICTURE COMPARISON: None TECHNIQUE: Standard protocol for this study/examination. FINDINGS: Submitted images from the current procedure: 1.0. IMPRESSION: Total fluoroscopic time (continuous mode) utilized during the procedure: 2.5 seconds.
--- NOTE | 2017-01-25 16:57 | RAD ---
PROCEDURE: Cystogram HISTORY: URETHERAL STRICTURE COMPARISON: None TECHNIQUE: Standard protocol for this study/examination. FINDINGS: Submitted images from the current procedure: 1.0. IMPRESSION: No significant findings in the abdomen or pelvis on this single plain film radiographs.
[2017-01-25 18:02] VITALS: BP 136/70; PULSE 72; RESP 18; TEMP 97; O2SAT 100
--- NOTE | 2017-01-26 04:01 | HP ---
REASON FOR ADMISSION: Insertion of cystostomy tube. HISTORY OF PRESENT ILLNESS: The patient is a very pleasant, very anxious gentleman, is very pleasant about the matter, but he is very, very anxious. He has urethral stricture, urinary retention and I cannot get a Leblanc catheter via the urethra despite many efforts and we are also going to try again delicately today. PAST MEDICAL HISTORY AND SURGICAL HISTORY: There is no other change. The patient is of Dr. Vicente and he went to Dr. Prince then back to Dr. Vicente based on insurance issues, but Dr. Vicente is his main doctor. REVIEW OF SYSTEMS: As listed above. No weight loss, chest pain or shortness of breath. SOCIAL HISTORY: That is the difficulty; he lives alone. He cares for himself. PHYSICAL EXAMINATION GENERAL: A well-nourished male, in no apparent distress. VITAL SIGNS: Noted. SKIN: Skin lesions throughout are noted. His furrow and scars throughout his skin are noted. In his suprapubic site the catheter is in place. There is like tremendous amount of granulation tissue around the site. GENITOURINARY: He has normal phallus without discharge. No testicular masses. RECTAL: Deferred. LABORATORY DATA: See chart. DIAGNOSES: Urinary retention, voiding dysfunction, urethral stricture disease and hematuria. PLAN: We have discussed options. I would like him to get a second opinion where perhaps somebody would do an open urethroplasty, but in the meantime, he is not able to find apparently anybody who is in his insurance plan. I explained this to the patient, so we are going to still attempt to go below. The patient does complain if he has bleeding, they told him, will gently. We have tried a couple of times technique where it is coming from above suprapubically, and then going from below with the catheter. We have tried different techniques, but today we are going to try just gently from below, and if not, we are just going to change the cystotomy tube. ADDENDUM: Note for the operative report; we were only able to do a cystogram and a change, put a new cystostomy tube in. I did try to gently do a full cystoscope via the urethra, I put a wire, but there is really this blind ending and I did not want to start bleeding at the patient's request. Salvador Tristan MD [facility] # [id number]
--- NOTE | 2017-01-26 09:26 | OP ---
PROCEDURE DATE: 01/25/2017 PREOPERATIVE DIAGNOSES: Urinary retention, voiding dysfunction, urethral stricture disease, and hematuria. POSTOPERATIVE DIAGNOSES: Urinary retention, voiding dysfunction, urethral stricture disease, hematuria, and reflux. PROCEDURES: 1. Cystoscopy, and attempted insertion of wire. 2. Cystogram and insertion of a new cystostomy tube. SURGEON: Salvador Tristan MD BLOOD LOSS: Less than 10 mL. OPERATIVE FINDINGS: There was reflux now on the left side. COMPLICATIONS: There were no complications, but the ureteral stricture was so tight, I cannot get a wire in. INDICATION: See history and physical for further details. Very pleasant gentleman here for the above procedure. DESCRIPTION OF PROCEDURE: After obtaining informed consent, the patient was placed on the table. Routine monitors were placed. Time-out was called to confirm the patient's positioning. The cystoscope was introduced via urethra. The meatus was relatively normal limits, but just beyond the fossa navicularis there was tight stricture and I cannot put a wire or anything pass that. I tried gently and carefully, but did not want to make any bleeding. The patient also complained about this, although he does not want something in his catheter (previously we tried to cut to the light technique suprapubically and from below, we were still not been successful, but we are going to continue trying. What we really going to try to do was encourage the patient to get a second opinion. I have given him names, but the issue is his insurance. After obtaining informed consent, the patient was placed on the table. Routine monitors were placed. Timeout was called to confirm the patient's positioning. We introduced the cystoscope, but once we went beyond the meatus, we could not really go further, tried the wire. We continued, but nothing would go in. At this point, we converted. We just removed the old cystostomy tube and then we inserted a new one, did a cystogram to confirm. Again, there granulation tissue was noted. The patient tolerated the procedure without complications. Salvador Tristan MD
== END 2017-01-25 18:04 | disposition home or self-care (01) ==
LOC: C.SDS 12:25
PROVIDERS: ATTEND Urology
DX: N35.9 Urethral stricture, unspecified (principal); R33.9 Retention of urine, unspecified; R31.0 Gross hematuria
CPT/HCPCS: 51705; 74000; 76000; C1769; J0696; J7120

== ENCOUNTER 2017-05-04 14:09 | Emergency (ER) | payer MEDICARE, MEDICAID ==
[2017-05-04 14:09] VITALS: BMI 24.3
--- NOTE | 2017-05-04 15:08 | C.PDOC ---
History Of Present Illness 61M c/o frequent urination that started this morning. he still urinates from the urethra occasionally but this am has been more than usual. he denies any pain. he says he spoke with Dr Tristan this morning and "he told me I was probably having bladder spasms." he has a suprapubic catheter in place since last year. Time Seen by Provider: 05/04/17 14:26 Chief Complaint (Nursing): Male Genitourinary Past Medical History Vital Signs: Last Vital Signs Temp 98.4 F 05/04/17 18:10 Pulse 76 05/04/17 18:10 Resp 18 05/04/17 18:10 BP 158/76 H 05/04/17 18:10 Pulse Ox 99 05/04/17 18:10 - Medical History PMH: Anemia, Benign Prostatic Hyperplasia, HTN, Hypercholesterolemia, Hyperlipidemia Surgical History: CABG (2013 X3) - [facility] Procedures CONTROL BLEEDING IN GENITOURINARY TRACT, ENDO (11/21/15) DESTRUCTION OF BLADDER NECK, VIA OPENING (01/28/16) DILATION OF URETHRA, ENDO (07/04/16) DILATION OF URETHRA, VIA NATURAL OR ARTIFICIAL OPENING (03/22/16) DRAINAGE OF BLADDER WITH DRAINAGE DEVICE, PERC APPROACH (03/22/16) EXCISION OF DESCENDING COLON, ENDO, DIAGN (09/07/15) EXCISION OF LEFT UPPER LEG SKIN, EXTERNAL APPROACH, DIAGN (07/04/16) EXCISION OF STOMACH, ENDO, DIAGN (09/07/15) EXTIRPATION OF MATTER FROM BLADDER, ENDO (11/21/15) FLUOROSCOPY OF KIDNEYS, URETERS AND BLADDER (11/21/15) PLAIN RADIOGRAPHY OF BLADDER AND URETHRA (07/04/16) RESECTION OF PROSTATE, ENDO (01/01/16) Family History: States: Other Other Family History: nc - Social History Hx Tobacco Use: No Hx Alcohol Use: No Hx Substance Use: No - Immunization History Hx Tetanus Toxoid Vaccination: No Hx Influenza Vaccination: Yes Hx Pneumococcal Vaccination: Yes Review Of Systems Constitutional: Negative for: Fever, Chills, Malaise Cardiovascular: Negative for: Chest Pain Respiratory: Negative for: Shortness of Breath Gastrointestinal: Negative for: Nausea, Vomiting, Abdominal Pain Genitourinary: Positive for: Frequency. Negative for: Dysuria, Hematuria Physical Exam - Physical Exam Appears: Well, Non-toxic, No Acute Distress Skin: Warm, Dry Oral Mucosa: Moist Respiratory: No Decreased Breath Sounds Gastrointestinal/Abdominal: Soft, No Tenderness, No Distention, No Guarding, No Rebound, Other (suprapubic cath in place no erythema or drainage) Neurological/Psych: Oriented x3 ED Course And Treatment - Laboratory Results Result Diagrams: 05/04/17 16:15 05/04/17 16:15 O2 Sat by Pulse Oximetry: 98 Medical Decision Making Medical Decision Makinpm disc w Dr Tristan, rec follow up urine culture 335pm disc results and Dr Tristan rec w pt. he now says he has "discomfort" at catheter site. 620pm pt states his sx are now resolved. I disc w Dr Tristan again who agrees w plan for dc and f/u in office. PROCEDURE: CT Abdomen and Pelvis with contrast HISTORY: abdominal pain COMPARISON: CT abdomen and pelvis without contrast performed 11/24/15. TECHNIQUE: Contrast dose: 100 cc Omnipaque 300 Radiation dose: Total exam DLP = 466.14 MGy-cm. This CT exam was performed using one or more of the following dose reduction techniques: Automated exposure control, adjustment of the mA and/or kV according to patient size, and/or use of iterative reconstruction technique. FINDINGS: LOWER THORAX: No visible consolidation, pleural effusion, or pneumothorax. Dense coronary artery calcifications. Median sternotomy wires. Small hiatal hernia/ distal esophageal wall thickening. LIVER: Unremarkable. GALLBLADDER AND BILE DUCTS: Unremarkable. PANCREAS: 8 mm pancreatic tail calcification. SPLEEN: Unremarkable. ADRENALS: Unremarkable. KIDNEYS AND URETERS: 8 mm right lower pole renal hypodensity, too small to characterize ; statistically likely a cyst. 7 mm left lower pole too small to characterize renal hypodensity; statistically likely a cyst. The kidneys enhance symmetrically. No hydronephrosis or obstructing calculus identified. VASCULATURE: No aortic aneurysm. BOWEL: Stomach is nondistended. Lack of oral contrast limits evaluation for bowel pathology. Bowel loops appear within normal limits of caliber without evidence of obstruction. Moderate constipation. APPENDIX: The appendix is not identified. No secondary signs of acute appendicitis. PERITONEUM: No significant free fluid. No definite free air. LYMPH NODES: No bulky adenopathy identified. BLADDER: Suprapubic catheter. Air within the urinary bladder may be related to instrumentation. Markedly thick-walled irregular urinary bladder. 2.7 x 3.8 cm fluid-filled structure consistent with posterior urinary bladder diverticulum. REPRODUCTIVE: Prostate gland measures approximately 3.5 x 4.1 cm. BONES: Degenerative changes. OTHER FINDINGS: Tiny fat containing umbilical hernia. Small left greater than right fat containing inguinal hernias. IMPRESSION: Suprapubic catheter. Air within the urinary bladder may be related to instrumentation. Markedly thick-walled irregular urinary bladder. 2.7 x 3.8 cm fluid-filled structure consistent with posterior right sided urinary bladder diverticulum. Moderate constipation. Too small to characterize renal hypodensities ; statistically likely cysts. Nonspecific 8 mm pancreatic tail calcification. Dense coronary artery calcifications. Additional incidental findings as above. Disposition - Disposition Disposition: HOME/ ROUTINE Disposition Time: 18:25 Condition: STABLE Forms: [facility] (Lao) - Clinical Impression Clinical Impression: Urinary frequency
[2017-05-04 15:22] LABS: RBC URINE 110 /hpf (0-3); URINE BACTERIA RARE (<OCC); URINE BILIRUBIN NEGATIVE (NEGATIVE); URINE BLOOD 3+ (NEGATIVE); URINE CALCIUM OXALATE CRYSTALS RARE /hpf (<OCC); URINE COLOR Yellow (YELLOW); URINE GLUCOSE (UA) NORMAL (Normal); URINE KETONE NEGATIVE (NEGATIVE); URINE LEUKOCYTE ESTERASE 3+ Leu/uL (Negative); URINE PROTEIN 2+ mg/dL (NEGATIVE); URINE UROBILINOGEN NORMAL mg/dL (0.2-1.0); WBC URINE 12 /hpf (0-5)
[2017-05-04 15:25] VITALS: RESP 18
[2017-05-04 16:18] LABS: BASO # 0.1 K/uL (0.0-0.2); BASO % 0.8 % (0.0-2.0); EOS # 0.2 K/uL (0.0-0.7); EOS % 2.5 % (0.0-4.0); HEMATOCRIT 41.2 % (35.0-51.0); LYMPH # 1.6 K/uL (1.0-4.3); LYMPH % 20.9 % (20.0-40.0); MEAN CELL VOLUME 88.2 fL (80.0-94.0); MEAN CORPUSCULAR HEMOGLOBIN 29.2 pg (27.0-31.0); MEAN CORPUSCULAR HGB CONC 33.1 g/dL (33.0-37.0); MONO # 0.6 K/uL (0.0-0.8); MONO % 8.3 % (0.0-10.0); RED CELL DISTRIBUTION WIDTH 14.4 % (11.5-14.5); WHITE BLOOD COUNT 7.6 K/uL (4.8-10.8)
[2017-05-04 16:33] LABS: ALB/GLOB RATIO 1.2 (1.0-2.1); ALKALINE PHOSPHATASE 86 U/L (38-126); ALT/SGPT 29 U/L (21-72); AST/SGOT 25 U/L (17-59); BILIRUBIN,TOTAL 0.8 mg/dL (0.2-1.3); BLOOD UREA NITROGEN 13 mg/dL (9-20); CALCIUM 8.4 mg/dl (8.6-10.4); CARBON DIOXIDE 23 mmol/L (22-30); CHLORIDE 102 mmol/L (98-107); GFR AFRICAN-AMERICAN > 60; GLUCOSE,RANDOM 82 mg/dL (75-110); POTASSIUM 3.8 mmol/L (3.6-5.2); SODIUM 134 mmol/L (132-148); TOTAL PROTEIN 7.9 g/dL (6.3-8.3)
[2017-05-04] MEDS ORDERED: Iohexol 300 100 ML IJ ONE (17:16)
[2017-05-04 18:10] VITALS: BP 158/76; PULSE 76; TEMP 98.4
--- NOTE | 2017-05-04 18:14 | CT ---
PROCEDURE: CT Abdomen and Pelvis with contrast HISTORY: abdominal pain COMPARISON: CT abdomen and pelvis without contrast performed 11/24/15. TECHNIQUE: Contrast dose: 100 cc Omnipaque 300 Radiation dose: Total exam DLP = 466.14 MGy-cm. This CT exam was performed using one or more of the following dose reduction techniques: Automated exposure control, adjustment of the mA and/or kV according to patient size, and/or use of iterative reconstruction technique. FINDINGS: LOWER THORAX: No visible consolidation, pleural effusion, or pneumothorax. Dense coronary artery calcifications. Median sternotomy wires. Small hiatal hernia/ distal esophageal wall thickening. LIVER: Unremarkable. GALLBLADDER AND BILE DUCTS: Unremarkable. PANCREAS: 8 mm pancreatic tail calcification. SPLEEN: Unremarkable. ADRENALS: Unremarkable. KIDNEYS AND URETERS: 8 mm right lower pole renal hypodensity, too small to characterize ; statistically likely a cyst. 7 mm left lower pole too small to characterize renal hypodensity; statistically likely a cyst. The kidneys enhance symmetrically. No hydronephrosis or obstructing calculus identified. VASCULATURE: No aortic aneurysm. BOWEL: Stomach is nondistended. Lack of oral contrast limits evaluation for bowel pathology. Bowel loops appear within normal limits of caliber without evidence of obstruction. Moderate constipation. APPENDIX: The appendix is not identified. No secondary signs of acute appendicitis. PERITONEUM: No significant free fluid. No definite free air. LYMPH NODES: No bulky adenopathy identified. BLADDER: Suprapubic catheter. Air within the urinary bladder may be related to instrumentation. Markedly thick-walled irregular urinary bladder. 2.7 x 3.8 cm fluid-filled structure consistent with posterior urinary bladder diverticulum. REPRODUCTIVE: Prostate gland measures approximately 3.5 x 4.1 cm. BONES: Degenerative changes. OTHER FINDINGS: Tiny fat containing umbilical hernia. Small left greater than right fat containing inguinal hernias. IMPRESSION: Suprapubic catheter. Air within the urinary bladder may be related to instrumentation. Markedly thick-walled irregular urinary bladder. 2.7 x 3.8 cm fluid-filled structure consistent with posterior right sided urinary bladder diverticulum. Moderate constipation. Too small to characterize renal hypodensities ; statistically likely cysts. Nonspecific 8 mm pancreatic tail calcification. Dense coronary artery calcifications. Additional incidental findings as above.
[2017-05-04 18:25] VITALS: O2SAT 98
== END 2017-05-04 18:40 | disposition home or self-care (01) ==
LOC: C.ER 14:09
DX: R35.0 Frequency of micturition (principal)
CPT/HCPCS: 74177; 80053; 81001; 85025; 87086; 96374; 99284; J1885; Q9967

== ENCOUNTER 2017-05-06 18:52 | Emergency (ER) | payer MEDICARE, MEDICAID ==
[2017-05-06 18:52] VITALS: BMI 24.3
--- NOTE | 2017-05-06 21:04 | C.PDOC ---
History Of Present Illness 61 year old male presents to the ER with a complaint of difficulty urinating and a malfunctioning suprapubic catheter. Denies dysuria, fever, nausea, or vomiting. Chief Complaint (Nursing): Male Genitourinary History Per: Patient History/Exam Limitations: no limitations Onset/Duration Of Symptoms: Hrs Current Symptoms Are (Timing): Still Present Quality Of Discomfort: Unable To Describe Associated Symptoms: Urinary Symptoms (Difficulty urinating). denies: Fever, Chills, Nausea, Vomiting Past Medical History Reviewed: Historical Data, Nursing Documentation, Vital Signs Vital Signs: Last Vital Signs Temp 98.4 F 05/06/17 19:34 Pulse 75 05/06/17 19:34 Resp 18 05/06/17 19:34 BP 130/82 05/06/17 19:34 Pulse Ox 97 05/06/17 21:21 - Medical History PMH: Anemia, Benign Prostatic Hyperplasia, HTN, Hypercholesterolemia, Hyperlipidemia Surgical History: CABG (2013 X3) - [facility] Procedures CONTROL BLEEDING IN GENITOURINARY TRACT, ENDO (11/21/15) DESTRUCTION OF BLADDER NECK, VIA OPENING (01/28/16) DILATION OF URETHRA, ENDO (07/04/16) DILATION OF URETHRA, VIA NATURAL OR ARTIFICIAL OPENING (03/22/16) DRAINAGE OF BLADDER WITH DRAINAGE DEVICE, PERC APPROACH (03/22/16) EXCISION OF DESCENDING COLON, ENDO, DIAGN (09/07/15) EXCISION OF LEFT UPPER LEG SKIN, EXTERNAL APPROACH, DIAGN (07/04/16) EXCISION OF STOMACH, ENDO, DIAGN (09/07/15) EXTIRPATION OF MATTER FROM BLADDER, ENDO (11/21/15) FLUOROSCOPY OF KIDNEYS, URETERS AND BLADDER (11/21/15) PLAIN RADIOGRAPHY OF BLADDER AND URETHRA (07/04/16) RESECTION OF PROSTATE, ENDO (01/01/16) Family History: States: Unknown Family Hx - Social History Hx Tobacco Use: No Hx Alcohol Use: No Hx Substance Use: No - Immunization History Hx Tetanus Toxoid Vaccination: No Hx Influenza Vaccination: Yes Hx Pneumococcal Vaccination: Yes Review Of Systems Constitutional: Negative for: Fever, Chills Gastrointestinal: Positive for: Abdominal Pain. Negative for: Nausea, Vomiting Genitourinary: Positive for: Other (Difficulty urinating, malfunctioning catheter). Negative for: Dysuria Physical Exam - Physical Exam Appears: Non-toxic, Other (Conscious, alert, mild distress) Skin: Normal Color, Warm, Dry Head: Atraumatic, Normacephalic Eye(s): bilateral: Normal Inspection Oral Mucosa: Moist Chest: Symmetrical, No Tenderness Cardiovascular: Rhythm Regular Respiratory: Normal Breath Sounds, No Rales, No Rhonchi, No Wheezing Gastrointestinal/Abdominal: Soft, Tenderness (Mild hypogastric) Neurological/Psych: Oriented x3, Normal Speech ED Course And Treatment O2 Sat by Pulse Oximetry: 97 (Room air) Pulse Ox Interpretation: Normal Progress Note: Leblanc inserted. Urinalysis ordered. Disposition Discussed With .: Kathie Tristan Doctor Will See Patient In The: Office Counseled Patient/Family Regarding: Diagnosis - Disposition Referrals: Kathie Tristan MD [Staff Provider] - Disposition Time: 21:18 Condition: STABLE Instructions: How to Care for Your Suprapubic Catheter (ED) Forms: [facility] (Syriac) - POA Present On Arrival: None - Clinical Impression Clinical Impression: Suprapubic catheter, Urinary frequency, Urinary tract infection - Scribe Statement The provider has reviewed the documentation as recorded by the Scribyogesh Mays All medical record entries made by the Scribe were at my direction and personally dictated by me. I have reviewed the chart and agree that the record accurately reflects my personal performance of the history, physical exam, medical decision making, and the department course for this patient. I have also personally directed, reviewed, and agree with the discharge instructions and disposition.
[2017-05-06] MEDS ORDERED: Lidocaine 2% Jelly (Uro-Jet) TOP ONE (21:09)
[2017-05-06] MEDS ORDERED: Lidocaine 2% Jelly (Uro-Jet) ONE (21:11)
[2017-05-06 21:42] LABS: RBC URINE 73 /hpf (0-3); URINE BACTERIA MOD (<OCC); URINE BILIRUBIN NEGATIVE (NEGATIVE); URINE BLOOD 3+ (NEGATIVE); URINE COLOR Yellow (YELLOW); URINE GLUCOSE (UA) NORMAL (Normal); URINE KETONE NEGATIVE (NEGATIVE); URINE LEUKOCYTE ESTERASE 3+ Leu/uL (Negative); URINE PROTEIN 2+ mg/dL (NEGATIVE); URINE UROBILINOGEN NORMAL mg/dL (0.2-1.0); WBC CLUMPS MOD /hpf; WBC URINE 601 /hpf (0-5)
[2017-05-06 22:02] VITALS: BP 136/79; PULSE 81; RESP 20; TEMP 98.1; O2SAT 99
== END 2017-05-06 22:10 | disposition home or self-care (01) ==
LOC: C.ER 18:52
DX: T83.018A Breakdown (mechanical) of other urinary catheter, initial encounter (principal); Y84.8 Other medical procedures as the cause of abnormal reaction of the patient, or of later complication, without mention of misadventure at the time of the procedure; N39.0 Urinary tract infection, site not specified; R35.0 Frequency of micturition

== ENCOUNTER 2017-07-16 16:33 | Emergency (ER) | payer MEDICARE, MEDICAID ==
[2017-07-16 16:34] VITALS: BMI 24.3
[2017-07-16 16:45] VITALS: O2SAT 98
--- NOTE | 2017-07-16 18:34 | C.PDOC ---
History Of Present Illness 62 year old male presents to ED for evaluation of urine draining from his urethra today, note pt has suprapubic catheter in place. Kirt pain on urination , blood in urine, nausea, vomiting, or fever. Chief Complaint (Nursing): Male Genitourinary History Per: Patient History/Exam Limitations: no limitations Onset/Duration Of Symptoms: Hrs Current Symptoms Are (Timing): Still Present Associated Symptoms: Urinary Symptoms Recent travel outside of the [place]: No Additional History Per: Patient Past Medical History Reviewed: Historical Data, Nursing Documentation, Vital Signs Vital Signs: Last Vital Signs Temp 97.9 F 07/16/17 18:38 Pulse 74 07/16/17 18:38 Resp 16 07/16/17 18:38 BP 130/71 07/16/17 18:38 Pulse Ox 98 07/16/17 18:42 - Medical History PMH: Anemia, Benign Prostatic Hyperplasia, HTN, Hypercholesterolemia, Hyperlipidemia Denies: Chronic Kidney Disease Surgical History: CABG (2013 X3) - [facility] Procedures CONTROL BLEEDING IN GENITOURINARY TRACT, ENDO (11/21/15) DESTRUCTION OF BLADDER NECK, VIA OPENING (01/28/16) DILATION OF URETHRA, ENDO (07/04/16) DILATION OF URETHRA, VIA NATURAL OR ARTIFICIAL OPENING (03/22/16) DRAINAGE OF BLADDER WITH DRAINAGE DEVICE, PERC APPROACH (03/22/16) EXCISION OF DESCENDING COLON, ENDO, DIAGN (09/07/15) EXCISION OF LEFT UPPER LEG SKIN, EXTERNAL APPROACH, DIAGN (07/04/16) EXCISION OF STOMACH, ENDO, DIAGN (09/07/15) EXTIRPATION OF MATTER FROM BLADDER, ENDO (11/21/15) FLUOROSCOPY OF KIDNEYS, URETERS AND BLADDER (11/21/15) PLAIN RADIOGRAPHY OF BLADDER AND URETHRA (07/04/16) RESECTION OF PROSTATE, ENDO (01/01/16) Family History: States: Unknown Family Hx - Social History Hx Tobacco Use: No Hx Alcohol Use: No Hx Substance Use: No - Immunization History Hx Tetanus Toxoid Vaccination: No Hx Influenza Vaccination: Yes Hx Pneumococcal Vaccination: Yes Review Of Systems Except As Marked, All Systems Reviewed And Found Negative. Constitutional: Negative for: Fever, Chills Gastrointestinal: Negative for: Nausea, Vomiting, Abdominal Pain, Diarrhea Genitourinary: Positive for: Frequency (urine draining from urethra despite suprabpubic catheter in place). Negative for: Dysuria, Hematuria Musculoskeletal: Negative for: Back Pain Physical Exam - Physical Exam Appears: Non-toxic, No Acute Distress Skin: Normal Color, Warm, Dry Head: Atraumatic, Normacephalic Eye(s): bilateral: Normal Inspection Oral Mucosa: Moist Cardiovascular: Rhythm Regular, No Murmur Respiratory: Normal Breath Sounds, No Rales, No Rhonchi, No Wheezing Gastrointestinal/Abdominal: Soft, No Tenderness, No Guarding, No Rebound, Other (suprapubic catheter with active drainage, no signs of infection) Back: No CVA Tenderness Extremity: Normal ROM, No Deformity Neurological/Psych: Oriented x3, Normal Speech ED Course And Treatment O2 Sat by Pulse Oximetry: 98 (RA) Pulse Ox Interpretation: Normal Medical Decision Making Medical Decision Making: Case discussed with Dr. Felice Tristan who instructed to have pt follow up with him on Tuesday to have catheter placed. Disposition - Disposition Referrals: Tomy Tristan MD [Staff Provider] - Disposition: HOME/ ROUTINE Disposition Time: 18:10 Condition: GOOD Additional Instructions: Thank you for letting us take care of you today. The emergency medical care you received today was directed at your acute symptoms. If you were prescribed any medication, please fill it and take as directed. It may take several days for your symptoms to resolve. Return to the Emergency Department if your symptoms worsen, do not improve, or if you have any other problems. Please contact your doctor or call one of the physicians/clinics you have been referred to that are listed on the Patient Visit Information form that is included in your discharge packet. Bring any paperwork you were given at discharge with you along with any medications you are taking to your follow up visit. Our treatment cannot replace ongoing medical care by a primary care provider (PCP) outside of the emergency department. Thank you for allowing the [facility] team to be part of your care today. Follow up with Dr. Tristan on Tuesday for re-evaluation and further management. Instructions: How to Care for Your Suprapubic Catheter (ED) Forms: [facility] (Bengali) - Clinical Impression Clinical Impression: Suprapubic catheter - Scribe Statement The provider has reviewed the documentation as recorded by the Scribe Celeste Duong All medical record entries made by the Scribe were at my direction and personally dictated by me. I have reviewed the chart and agree that the record accurately reflects my personal performance of the history, physical exam, medical decision making, and the department course for this patient. I have also personally directed, reviewed, and agree with the discharge instructions and disposition.
[2017-07-16 18:39] VITALS: BP 130/71; PULSE 74; RESP 16; TEMP 97.9
== END 2017-07-16 18:38 | disposition home or self-care (01) ==
LOC: C.ER 16:33
DX: Z46.6 Encounter for fitting and adjustment of urinary device (principal)

== ENCOUNTER 2017-07-18 11:09 | Inpatient (IN) | payer MEDICARE, MEDICAID ==
[2017-07-18 11:09] VITALS: BMI 24.3
--- NOTE | 2017-07-18 14:15 | C.PDOC ---
History Of Present Illness 62 year old male presents to the ED for evaluation of urinary retention. Patient was sent to the ED by Dr. Felice Tristan. Patient denies any fever, chills, nausea, vomit, diarrhea, back pain. Time Seen by Provider: 07/18/17 13:05 Chief Complaint (Nursing): Male Genitourinary History Per: Patient History/Exam Limitations: no limitations Onset/Duration Of Symptoms: Days Current Symptoms Are (Timing): Still Present Quality Of Discomfort: "Pain" Alleviating Factors: None Recent travel outside of the [place]: No Additional History Per: Patient Past Medical History Reviewed: Historical Data, Nursing Documentation, Vital Signs Vital Signs: Last Vital Signs Temp 98.7 F 07/18/17 11:45 Pulse 80 07/18/17 11:45 Resp 18 07/18/17 11:45 BP 122/80 07/18/17 11:45 Pulse Ox 99 07/18/17 14:20 - Medical History PMH: Anemia, Benign Prostatic Hyperplasia, HTN, Hypercholesterolemia, Hyperlipidemia Denies: Chronic Kidney Disease Surgical History: CABG (2013 X3) - [facility] Procedures CONTROL BLEEDING IN GENITOURINARY TRACT, ENDO (11/21/15) DESTRUCTION OF BLADDER NECK, VIA OPENING (01/28/16) DILATION OF URETHRA, ENDO (07/04/16) DILATION OF URETHRA, VIA NATURAL OR ARTIFICIAL OPENING (03/22/16) DRAINAGE OF BLADDER WITH DRAINAGE DEVICE, PERC APPROACH (03/22/16) EXCISION OF DESCENDING COLON, ENDO, DIAGN (09/07/15) EXCISION OF LEFT UPPER LEG SKIN, EXTERNAL APPROACH, DIAGN (07/04/16) EXCISION OF STOMACH, ENDO, DIAGN (09/07/15) EXTIRPATION OF MATTER FROM BLADDER, ENDO (11/21/15) FLUOROSCOPY OF KIDNEYS, URETERS AND BLADDER (11/21/15) PLAIN RADIOGRAPHY OF BLADDER AND URETHRA (07/04/16) RESECTION OF PROSTATE, ENDO (01/01/16) Family History: States: Unknown Family Hx - Social History Hx Tobacco Use: No Hx Alcohol Use: No Hx Substance Use: No - Immunization History Hx Tetanus Toxoid Vaccination: No Hx Influenza Vaccination: Yes Hx Pneumococcal Vaccination: Yes Review Of Systems Constitutional: Negative for: Fever, Chills Cardiovascular: Negative for: Chest Pain, Palpitations Respiratory: Negative for: Cough, Shortness of Breath Gastrointestinal: Negative for: Nausea, Vomiting, Abdominal Pain Genitourinary: Positive for: Other (retention) Musculoskeletal: Negative for: Back Pain Skin: Negative for: Rash Neurological: Negative for: Weakness, Numbness Physical Exam - Physical Exam Appears: Non-toxic, No Acute Distress Skin: Normal Color, Warm, Dry Head: Atraumatic, Normacephalic Eye(s): bilateral: Normal Inspection Nose: No Discharge, No Epistaxis Oral Mucosa: Moist Neck: Normal ROM, Supple Chest: Symmetrical Cardiovascular: Rhythm Regular, No Murmur Respiratory: Normal Breath Sounds, No Rales, No Rhonchi, No Wheezing Gastrointestinal/Abdominal: Soft, No Tenderness, No Guarding, No Rebound Extremity: Normal ROM, No Deformity, No Swelling Neurological/Psych: Oriented x3, Normal Speech, Normal Cognition Gait: Steady ED Course And Treatment O2 Sat by Pulse Oximetry: 99 (On RA) Pulse Ox Interpretation: Normal Medical Decision Making Medical Decision Making: Impression: urinary retention, patient sent by Dr. Felice Tristan Disposition Discussed With Dr.: Tomy Tristan Doctor Will See Patient In The: Hospital - Disposition Disposition: HOSPITALIZED Disposition Time: 14:22 Condition: STABLE Forms: [facility] (Grenadian) - Clinical Impression Clinical Impression: Urinary retention - PA / OIL BURNER MECHANIC / Resident Statement MD/DO has reviewed & agrees with the documentation as recorded. - Scribe Statement The provider has reviewed the documentation as recorded by the Scribe Reid Jade All medical record entries made by the Scribe were at my direction and personally dictated by me. I have reviewed the chart and agree that the record accurately reflects my personal performance of the history, physical exam, medical decision making, and the department course for this patient. I have also personally directed, reviewed, and agree with the discharge instructions and disposition.
[2017-07-18] MEDS ORDERED: Lidocaine 2% Jelly (Uro-Jet) ONE ×2 (16:29→17:38)
[2017-07-18] MEDS ORDERED: cefTRIAXone 1 gm 1 GM/100 ML BAG IVPB ONE (16:29)
[2017-07-18] MEDS ORDERED: Lactated Ringer's 1,000 ML IV ONE (16:33)
[2017-07-18] MEDS ORDERED: Propofol 10 mg/ml Inj (20 ML) ONE (16:40)
[2017-07-18] MEDS ORDERED: Midazolam 2 MG/2 ML VIAL ONE (16:40)
[2017-07-18] MEDS ORDERED: Lidocaine Hydrochloride 5 ML INJ ONE (16:41)
[2017-07-18] MEDS ORDERED: HYDROmorphone 0.5 mg/0.5 ml ISec IVP PRN (17:21)
[2017-07-18] MEDS ORDERED: Iohexol 240 (50 ml) ONE (17:38)
[2017-07-18] MEDS: Oxycodone/Acetaminophen 5/325 mg Tab PO PRN ×2 (19:05→23:15)
[2017-07-19] MEDS: Oxycodone/Acetaminophen 5/325 mg Tab PO PRN (11:17)
--- NOTE | 2017-07-19 15:05 | RAD ---
HISTORY: URETHRAL STRICTURE COMPARISON: 12/07/2016. Abdominal x-ray. 05/04/2017 CT abdomen and pelvis. FINDINGS: BOWEL: Normal. No obstruction. No free air. BONES: Normal. OTHER FINDINGS: Two images submitted including 1 documenting a suprapubic catheter within the urinary bladder. No additional meaningful information can be gleaned from this study. IMPRESSION: Suprapubic catheter identified. Contrast fills portions of the bladder without reflux into the collecting systems.
[2017-07-19] MEDS: Lactated Ringer's 1,000 ML IV ONE (15:17)
--- NOTE | 2017-07-19 15:18 | RAD ---
PROCEDURE: Intraoperative Fluoroscopy. HISTORY: URETHRAL STRICTURE FINDINGS: Fluoroscopic assistance was provided for suprapubic catheter placement and antegrade urethrogram.. Please refer to the operative report from SALEEM Mena, , MD CRISTIAN.
[2017-07-19] MEDS ORDERED: Midazolam 2 MG/2 ML VIAL ONE (15:23)
[2017-07-19] MEDS ORDERED: Propofol 10 mg/ml Inj (20 ML) ONE (15:26)
[2017-07-19] MEDS ORDERED: cefTRIAXone 1 gm 1 GM/100 ML BAG IVPB ONE (15:26)
[2017-07-19] MEDS ORDERED: Bacitracin Ointment 30 GM TUBE ONE (17:05)
[2017-07-19] MEDS ORDERED: Iohexol 240 (50 ml) ONE (17:06)
[2017-07-19] MEDS: HYDROmorphone 0.5 mg/0.5 ml ISec IVP PRN ×2 (17:35→18:06)
[2017-07-19] MEDS ORDERED: DiphenhydrAMINE 50 mg/ml Inj IVP STA (17:44)
[2017-07-19] MEDS ORDERED: Ciprofloxacin 400mg/200ml D5W 400 MG/200 ML BAG IVPB SCH ×2 (18:00→22:00)
[2017-07-19] MEDS ORDERED: HYDROmorphone 0.5 mg/0.5 ml ISec ONE (18:06)
[2017-07-19] MEDS ORDERED: Magnesium Hydroxide Susp 30 ml UD PO ONE (18:09)
[2017-07-19 19:05] LABS: BASO # 0.1 K/uL (0.0-0.2); BASO % 0.5 % (0.0-2.0); EOS # 0.4 K/uL (0.0-0.7); EOS % 1.6 % (0.0-4.0); LYMPH # 2.1 K/uL (1.0-4.3); LYMPH % 9.4 % (20.0-40.0); MEAN CELL VOLUME 89.8 fL (80.0-94.0); MEAN CORPUSCULAR HGB CONC 33.3 g/dL (33.0-37.0); MEAN PLATELET VOLUME 7.8 fL (7.2-11.7); MONO # 1.1 K/uL (0.0-0.8); MONO % 4.7 % (0.0-10.0); NEUT # 19.1 K/uL (1.8-7.0); NEUT % 83.8 % (50.0-75.0); NRBC % 0.1 % (0.0-2.0); PLATELET COUNT 256 K/uL (130-400); RBC 4.66 Mil/uL (4.40-5.90); RED CELL DISTRIBUTION WIDTH 14.8 % (11.5-14.5)
[2017-07-19 19:11] LABS: WHITE BLOOD COUNT 22.8 K/uL (4.8-10.8)
[2017-07-19 19:31] LABS: CALCIUM 8.4 mg/dl (8.6-10.4); GFR AFRICAN-AMERICAN > 60; GFR NON-AFRICAN AMERICAN > 60
[2017-07-19 19:34] LABS: ALT/SGPT < 6 U/L (21-72); AST/SGOT 56 U/L (17-59); BLOOD UREA NITROGEN 16 mg/dL (9-20)
[2017-07-19 19:44] LABS: BANDS 12 % (0-2); EOSINOPHIL 3 % (0-4); LYMPHOCYTE 9 % (20-40); MONOCYTE 4 % (0-10); NEUTROPHIL 72 % (50-75); PLATELET ESTIMATE NORMAL (NORMAL); TOTAL CELLS COUNTED 100
[2017-07-19] MEDS ORDERED: Lactated Ringer's 1,000 ML IV ONE (20:34)
--- NOTE | 2017-07-19 21:41 | CP.PCM.CON ---
History of Present Illness - History of Present Illness History of Present Illness: 62 year old male with h/o Anemia, Benign Prostatic Hyperplasia , HTN, Hyperlipidemia,CAD , CABG 2013, suprapubic catheter admitted yesterday for urinary retention. Patient had cystoscopy,optical internal Urethrotomy, cystogram and attempted removal of foreign body.Following procedure patient had swelling to bilateral groins,scrotum (with skin tear) and penis with drainage of serosanguinous fluid from scrotum. Suprapubic catheter has bloody fluid,fraser catheter with small amount of clear urine patient drowsy but arousable,answers questions.No complaints except for pain in lower abdomen and scrotum Review of Systems - Constitutional Constitutional: absent: Fever - Cardiovascular Cardiovascular: absent: Chest Pain - Respiratory Respiratory: absent: Cough, Dyspnea - Gastrointestinal Gastrointestinal: Abdominal Pain. absent: Vomiting - Genitourinary Genitourinary: Hx /Renal Surgery Past Patient History - Infectious Disease Hx of Infectious Diseases: None - Past Medical History & Family History Past Medical History?: Yes - Past Social History Smoking Status: Never Smoked - CARDIAC Hx Cardiac Disorders: Yes Hx Hypercholesterolemia: Yes Hx Hypertension: Yes - PULMONARY Hx Respiratory Disorders: No - NEUROLOGICAL Hx Neurological Disorder: No - HEENT Hx HEENT Problems: Yes Hx Epistaxis: Yes - RENAL Hx Chronic Kidney Disease: No - ENDOCRINE/METABOLIC Hx Endocrine Disorders: No - HEMATOLOGICAL/ONCOLOGICAL Hx Blood Disorders: Yes Hx Anemia: Yes - INTEGUMENTARY Hx Dermatological Problems: No - MUSCULOSKELETAL/RHEUMATOLOGICAL Hx Musculoskeletal Disorders: No Hx Falls: No - GASTROINTESTINAL Hx Gastrointestinal Disorders: Yes Hx Hemorrhoids: Yes - GENITOURINARY/GYNECOLOGICAL Hx Genitourinary Disorders: Yes - PSYCHIATRIC Hx Psychophysiologic Disorder: No Hx Substance Use: No - SURGICAL HISTORY Hx Surgeries: Yes Hx Coronary Artery Bypass Graft: Yes (2013 X3) - ANESTHESIA Hx Anesthesia: Yes Hx Anesthesia Reactions: No Hx Malignant Hyperthermia: No Meds Allergies/Adverse Reactions: Allergies Allergy/AdvReac Type Severity Reaction Status Date / Time No Known Allergies Allergy Verified 07/18/17 11:48 - Medications Medications: Current Medications Hydromorphone/Sodium Chloride (Dilaudid Modeling Teacher) 4 mg IV Q4H PRN; Protocol PRN Reason: Pain, moderate (4-7) Gentamicin Sulfate 80 mg/ (Sodium Chloride) 102 mls @ 100 mls/hr IVPB Q8H RIDGE Last Admin: 07/19/17 18:20 Dose: 100 mls Ceftriaxone Sodium 1 gm/ (Sodium Chloride) 100 mls @ 100 mls/hr IVPB DAILY COUNT INCLUDES THE [facility] Acetaminophen (Ofirmev) 100 mls @ 400 mls/hr IV Q6 PRN PRN Reason: Pain, moderate (4-7) Stop: 07/20/17 17:38 Last Admin: 07/19/17 19:00 Dose: 100 mls Ciprofloxacin (Cipro 400mg/200ml Dsw) 400 mg in 200 mls @ 133 mls/hr IVPB Q12 RIDGE Last Admin: 07/19/17 21:34 Dose: 0 mls Lactated Ringer's (Lactated Ringer's) 1,000 mls @ 100 mls/hr IV .Q10H COUNT INCLUDES THE [facility] Oxycodone/Acetaminophen (Percocet 5/325 Mg Tab) 1 tab PO Q4H PRN PRN Reason: pain Stop: 07/21/17 18:41 Last Admin: 07/19/17 11:17 Dose: 1 tab Physical Exam - Constitutional Appears: No Acute Distress, Chronically Ill Additional comments: drowsy but arousable - Head Exam Head Exam: ATRAUMATIC, NORMAL INSPECTION, NORMOCEPHALIC - Eye Exam Eye Exam: EOMI, Normal appearance, PERRL - ENT Exam ENT Exam: Mucous Membranes Dry, Normal External Ear Exam - Neck Exam Neck exam: Positive for: Normal Inspection. Negative for: Lymphadenopathy - Respiratory Exam Respiratory Exam: Clear to Auscultation Bilateral, NORMAL BREATHING PATTERN. absent: Rales, Rhonchi - Cardiovascular Exam Cardiovascular Exam: REGULAR RHYTHM. absent: JVD - GI/Abdominal Exam GI & Abdominal Exam: Normal Bowel Sounds, Soft Additional comments: swelling in both groins Right worse than left with reddish discoloration Suprapubic cathter with bloody drainage - Exam Exam: Scrotal Swelling (scrotal skin tear with serosanguinous drainage.Swollen penis with fraser catheter .Small amount of clear urine in fraser bag) - Extremities Exam Extremities exam: Positive for: pedal pulses present. Negative for: calf tenderness, pedal edema - Neurological Exam Neurological exam: Oriented x3 Additional comments: drowsy bot arousable - Skin Skin Exam: Dry Results - Vital Signs Recent Vital Signs: Last Vital Signs Temp 96.0 F L 07/19/17 17:35 Pulse 74 02/06/18 17:35 Resp 16 07/19/17 17:35 BP 224/131 H 07/19/17 17:35 Pulse Ox 96 07/19/17 17:35 - Labs Result Diagrams: 07/19/17 18:55 07/19/17 18:55 Labs: Laboratory Results - last 24 hr 07/19/17 07/19/17 18:55 18:55 WBC 22.8 H D RBC 4.66 Hgb 14.0 Hct 41.9 MCV 89.8 MCH 30.0 MCHC 33.3 RDW 14.8 H Plt Count 256 MPV 7.8 Neut % (Auto) 83.8 H Lymph % (Auto) 9.4 L Irion % (Auto) 4.7 Eos % (Auto) 1.6 Baso % (Auto) 0.5 Neut # (Auto) 19.1 H Lymph # (Auto) 2.1 Irion # (Auto) 1.1 H Eos # (Auto) 0.4 Baso # (Auto) 0.1 Neutrophils % (Manual) 72 Band Neutrophils % 12 H* Lymphocytes % (Manual) 9 L Monocytes % (Manual) 4 Eosinophils % (Manual) 3 Platelet Estimate Normal Sodium 133 Potassium 4.0 Chloride 100 Carbon Dioxide 22 Anion Gap 16 BUN 16 Creatinine 1.1 Est GFR ( Amer) > 60 Est GFR (Non-Af Amer) > 60 Random Glucose 95 Calcium 8.4 L Total Bilirubin 2.7 H AST 56 ALT < 6 L D Alkaline Phosphatase 57 Total Protein 8.0 Albumin 4.0 Globulin 4.0 H Albumin/Globulin Ratio 1.0 Assessment & Plan - Assessment and Plan (Free Text) Assessment: 1.Cystoscopy,optical internal Urethrotomy,cystogram and attempted removal of foreign body today.Following procedure patient had swelling to bilateral groins, scrotum (with skin tear) and penis with drainage of serosanguinous fluid from scrotum. Fraser catheter bag with small amount of clear urine.Suprapubic catheter with bloody drainage. f/u clinically,labs 2.CAD/CABG/ HTN- BP controlled restart meds 3.Leucocytosis post op r/o infection on antibiotics blood ,urine cukture,chest xray 4.H/o hyperlipidemia -restart meds 5.BPH on meds
[2017-07-19] MEDS: Lactated Ringer's 1,000 ML IV SCH (22:15)
[2017-07-19] MEDS ORDERED: Sodium Chloride 0.9% 1,000 ML IV ONE (23:57)
[2017-07-20] MEDS: Meropenem 1 GM in Sodium Chloride 0.9% 100 ML IVPB SCH ×4 (00:29→23:50)
[2017-07-20] MEDS ORDERED: Sodium Chloride 0.9% 1,000 ML IV ONE (05:37)
[2017-07-20 07:21] LABS: BASO % 0.2 % (0.0-2.0); HEMOGLOBIN 12.8 g/dL (12.0-18.0); LYMPH # 0.7 K/uL (1.0-4.3); LYMPH % 4.8 % (20.0-40.0); MEAN CELL VOLUME 88.2 fL (80.0-94.0); MEAN CORPUSCULAR HEMOGLOBIN 30.3 pg (27.0-31.0); MEAN CORPUSCULAR HGB CONC 34.3 g/dL (33.0-37.0); MEAN PLATELET VOLUME 7.5 fL (7.2-11.7); MONO # 1.5 K/uL (0.0-0.8); MONO % 9.9 % (0.0-10.0); NEUT # 12.4 K/uL (1.8-7.0); NEUT % 85.1 % (50.0-75.0); PLATELET COUNT 205 K/uL (130-400); RBC 4.21 Mil/uL (4.40-5.90); RED CELL DISTRIBUTION WIDTH 14.8 % (11.5-14.5); WHITE BLOOD COUNT 14.6 K/uL (4.8-10.8)
[2017-07-20 07:27] LABS: PROTHROMBIN TIME 11.1 SECONDS (9.7-12.2)
[2017-07-20 07:57] LABS: ALBUMIN 2.8 g/dL (3.5-5.0); CALCIUM 7.3 mg/dl (8.6-10.4); MAGNESIUM 1.4 mg/dL (1.6-2.3)
[2017-07-20] MEDS: Lactated Ringer's 1,000 ML IV SCH ×3 (08:00→17:00)
[2017-07-20 08:24] LABS: BANDS 7 % (0-2); LYMPHOCYTE 8 % (20-40); MONOCYTE 11 % (0-10); NEUTROPHIL 74 % (50-75); TOTAL CELLS COUNTED 100
[2017-07-20 08:25] LABS: PLATELET ESTIMATE NORMAL (NORMAL)
[2017-07-20] MEDS: Magnesium Sulfate 1 gm in D5W 1 GM/100 ML BAG IVPB SCH ×2 (09:39→10:18)
--- NOTE | 2017-07-20 09:41 | RAD ---
HISTORY: r/o pneumonia COMPARISON: 12/07/2016 FINDINGS: LUNGS: The lungs are well inflated. Again seen is mild pulmonary venous congestion. PLEURA: No significant pleural effusion identified, no pneumothorax apparent. CARDIOVASCULAR: There is persistent mild cardiomegaly. Status post CABG with OSSEOUS STRUCTURES: No significant abnormalities. VISUALIZED UPPER ABDOMEN: Normal. OTHER FINDINGS: None. IMPRESSION: No active pulmonary disease.
--- NOTE | 2017-07-20 09:57 | RAD ---
HISTORY: URETHRAL STRICTURE COMPARISON: No prior. FINDINGS: BOWEL: Normal abdominal bowel gas pattern. Suprapubic cystostomy catheter noted. No masses or abnormal calcifications are identified. BONES: Normal. OTHER FINDINGS: None. IMPRESSION: Suprapubic tube noted. Otherwise unremarkable.
--- NOTE | 2017-07-20 09:59 | RAD ---
PROCEDURE: Suprapubic catheter placement HISTORY: URETHRAL STRICTURE COMPARISON: Not available TECHNIQUE: Intraoperative fluoroscopy was provided. Total time of fluoroscopy was 145.3 seconds. FINDINGS: Multiple fluoroscopic spot films are submitted. IMPRESSION: Fluoroscopy provided.
--- NOTE | 2017-07-20 10:08 | CP.CCUPN ---
<aCmeron Kenney - Last Filed: 07/20/17 10:59> CCU Subjective - Physician Review Events Since Last Encounter (Free Text): 07/20/17 10:05 patient seen and examined at bedside complaining of hiccups denies any chest pain or SOB no fevers or chills producing urine out of suprapubic cath Review of fluoro images reveals FB in urethra patient has no other complaints at this time CCU Objective - Vital Signs / Intake & Output Vital Signs (Last 4 hours): Vital Signs Pulse Resp BP Pulse Ox 07/20/17 06:17 81 17 166/76 H 07/20/17 06:10 73 17 94 L Intake and Output (Last 8hrs): Intake & Output 07/19/17 07/20/17 07/20/17 22:59 06:59 14:59 Intake Total 1200 2800 100 Output Total 150 120 Balance 1050 2680 100 Intake: IV 1200 Intake, IV Amount 2800 100 right hand 800 100 rt hand 2nd port 2000 Output: Urine 150 120 Suprapubic 90 Urethral (Fraser) 30 - Physical Exam Head: Positive for: Atraumatic, Normocephalic Pupils: Positive for: PERRL Extroacular Muscles: Positive for: EOMI Conjunctiva: Positive for: Normal Mouth: Positive for: Moist Mucous Membranes Respiratory/Chest: Positive for: Clear to Auscultation. Negative for: Accessory Muscle Use Abdomen: Positive for: Normal Bowel Sounds. 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 Q4H PRN Pain, moderate (4-7) Protocol Acetaminophen 100 mls @ 400 mls/hr 07/19/17 17:37 07/19/17 19:00 Ofirmev IV 07/20/17 17:38 100 mls Q6 PRN Administration Pain, moderate (4-7) Lactated Ringer's 1,000 mls @ 100 mls/hr 07/19/17 21:45 07/19/17 22:15 Lactated Ringer's IV 100 mls/hr .Q10H RIDGE Administration Meropenem 1 gm/ Sodium 100 mls @ 100 mls/hr 07/20/17 00:00 07/20/17 09:18 Chloride IVPB 100 mls/hr Q8H RIDGE Administration Metoprolol Succinate 12.5 mg 07/20/17 10:00 Toprol Xl PO DAILY RIDGE Oxycodone/Acetaminophen 1 tab 07/18/17 18:40 07/19/17 11:17 Percocet 5/325 Mg Tab PO 07/21/17 18:41 1 tab Q4H PRN Administration pain Pantoprazole Sodium 40 mg 07/20/17 10:00 Protonix Inj IVP DAILY RIDGE Rosuvastatin Calcium 5 mg 07/20/17 22:00 Crestor PO HS RIDGE Tamsulosin HCl 0.4 mg 07/20/17 10:00 Flomax PO DAILY RIDGE - Patient Studies Lab Studies: Lab Studies 07/20/17 07/20/17 07/20/17 Range/Units 07:11 07:11 07:11 WBC 14.6 H (4.8-10.8) K/uL RBC 4.21 L (4.40-5.90) Mil/uL Hgb 12.8 (12.0-18.0) g/dL Hct 37.1 (35.0-51.0) % MCV 88.2 (80.0-94.0) fL MCH 30.3 (27.0-31.0) pg MCHC 34.3 (33.0-37.0) g/dL RDW 14.8 H (11.5-14.5) % Plt Count 205 (130-400) K/uL MPV 7.5 (7.2-11.7) fL Neut % (Auto) 85.1 H (50.0-75.0) % Lymph % (Auto) 4.8 L (20.0-40.0) % [place] % (Auto) 9.9 (0.0-10.0) % Eos % (Auto) 0.0 (0.0-4.0) % Baso % (Auto) 0.2 (0.0-2.0) % Neut # (Auto) 12.4 H (1.8-7.0) K/uL Lymph # (Auto) 0.7 L (1.0-4.3) K/uL [place] # (Auto) 1.5 H (0.0-0.8) K/uL Eos # (Auto) 0.0 (0.0-0.7) K/uL Baso # (Auto) 0.0 (0.0-0.2) K/uL Neutrophils % (Manual) 74 (50-75) % Band Neutrophils % 7 H (0-2) % Lymphocytes % (Manual) 8 L (20-40) % Monocytes % (Manual) 11 H (0-10) % Eosinophils % (Manual) (0-4) % Platelet Estimate Normal (NORMAL) PT 11.1 (9.7-12.2) SECONDS INR 1.0 APTT 29 (21-34) SECONDS Sodium 129 L (132-148) mmol/L Potassium 3.8 (3.6-5.2) mmol/L Chloride 103 (98-107) mmol/L Carbon Dioxide 17 L (22-30) mmol/L Anion Gap 13 (10-20) BUN 31 H (9-20) mg/dL Creatinine 1.7 H (0.8-1.5) mg/dL Est GFR ( Amer) 49 Est GFR (Non-Af Amer) 41 Random Glucose 120 H (75-110) mg/dL Calcium 7.3 L (8.6-10.4) mg/dl Phosphorus 5.5 H (2.5-4.5) mg/dL Magnesium 1.4 L (1.6-2.3) mg/dL Total Bilirubin 0.9 (0.2-1.3) mg/dL AST 47 (17-59) U/L ALT 22 (21-72) U/L Alkaline Phosphatase 44 (38-126) U/L Total Protein 5.7 L (6.3-8.3) g/dL Albumin 2.8 L D (3.5-5.0) g/dL Globulin 2.9 (2.2-3.9) gm/dL Albumin/Globulin Ratio 1.0 (1.0-2.1) 07/19/17 07/19/17 Range/Units 18:55 18:55 WBC 22.8 H D (4.8-10.8) K/uL RBC 4.66 (4.40-5.90) Mil/uL Hgb 14.0 (12.0-18.0) g/dL Hct 41.9 (35.0-51.0) % MCV 89.8 (80.0-94.0) fL MCH 30.0 (27.0-31.0) pg MCHC 33.3 (33.0-37.0) g/dL RDW 14.8 H (11.5-14.5) % Plt Count 256 (130-400) K/uL MPV 7.8 (7.2-11.7) fL Neut % (Auto) 83.8 H (50.0-75.0) % Lymph % (Auto) 9.4 L (20.0-40.0) % [place] % (Auto) 4.7 (0.0-10.0) % Eos % (Auto) 1.6 (0.0-4.0) % Baso % (Auto) 0.5 (0.0-2.0) % Neut # (Auto) 19.1 H (1.8-7.0) K/uL Lymph # (Auto) 2.1 (1.0-4.3) K/uL [place] # (Auto) 1.1 H (0.0-0.8) K/uL Eos # (Auto) 0.4 (0.0-0.7) K/uL Baso # (Auto) 0.1 (0.0-0.2) K/uL Neutrophils % (Manual) 72 (50-75) % Band Neutrophils % 12 H* (0-2) % Lymphocytes % (Manual) 9 L (20-40) % Monocytes % (Manual) 4 (0-10) % Eosinophils % (Manual) 3 (0-4) % Platelet Estimate Normal (NORMAL) PT (9.7-12.2) SECONDS INR APTT (21-34) SECONDS Sodium 133 (132-148) mmol/L Potassium 4.0 (3.6-5.2) mmol/L Chloride 100 (98-107) mmol/L Carbon Dioxide 22 (22-30) mmol/L Anion Gap 16 (10-20) BUN 16 (9-20) mg/dL Creatinine 1.1 (0.8-1.5) mg/dL Est GFR ( Amer) > 60 Est GFR (Non-Af Amer) > 60 Random Glucose 95 (75-110) mg/dL Calcium 8.4 L (8.6-10.4) mg/dl Phosphorus (2.5-4.5) mg/dL Magnesium (1.6-2.3) mg/dL Total Bilirubin 2.7 H (0.2-1.3) mg/dL AST 56 (17-59) U/L ALT < 6 L D (21-72) U/L Alkaline Phosphatase 57 (38-126) U/L Total Protein 8.0 (6.3-8.3) g/dL Albumin 4.0 (3.5-5.0) g/dL Globulin 4.0 H (2.2-3.9) gm/dL Albumin/Globulin Ratio 1.0 (1.0-2.1) Laboratory Results - last 24 hr 07/19/17 07/19/17 07/20/17 18:55 18:55 07:11 WBC 22.8 H D 14.6 H RBC 4.66 4.21 L Hgb 14.0 12.8 Hct 41.9 37.1 MCV 89.8 88.2 MCH 30.0 30.3 MCHC 33.3 34.3 RDW 14.8 H 14.8 H Plt Count 256 205 MPV 7.8 7.5 Neut % (Auto) 83.8 H 85.1 H Lymph % (Auto) 9.4 L 4.8 L [place] % (Auto) 4.7 9.9 Eos % (Auto) 1.6 0.0 Baso % (Auto) 0.5 0.2 Neut # (Auto) 19.1 H 12.4 H Lymph # (Auto) 2.1 0.7 L [place] # (Auto) 1.1 H 1.5 H Eos # (Auto) 0.4 0.0 Baso # (Auto) 0.1 0.0 Neutrophils % (Manual) 72 74 Band Neutrophils % 12 H* 7 H Lymphocytes % (Manual) 9 L 8 L Monocytes % (Manual) 4 11 H Eosinophils % (Manual) 3 Platelet Estimate Normal Normal PT INR APTT Sodium 133 Potassium 4.0 Chloride 100 Carbon Dioxide 22 Anion Gap 16 BUN 16 Creatinine 1.1 Est GFR ( Amer) > 60 Est GFR (Non-Af Amer) > 60 Random Glucose 95 Calcium 8.4 L Phosphorus Magnesium Total Bilirubin 2.7 H AST 56 ALT < 6 L D Alkaline Phosphatase 57 Total Protein 8.0 Albumin 4.0 Globulin 4.0 H Albumin/Globulin Ratio 1.0 07/20/17 07/20/17 07:11 07:11 WBC RBC Hgb Hct MCV MCH MCHC RDW Plt Count MPV Neut % (Auto) Lymph % (Auto) [place] % (Auto) Eos % (Auto) Baso % (Auto) Neut # (Auto) Lymph # (Auto) [place] # (Auto) Eos # (Auto) Baso # (Auto) Neutrophils % (Manual) Band Neutrophils % Lymphocytes % (Manual) Monocytes % (Manual) Eosinophils % (Manual) Platelet Estimate PT 11.1 INR 1.0 APTT 29 Sodium 129 L Potassium 3.8 Chloride 103 Carbon Dioxide 17 L Anion Gap 13 BUN 31 H Creatinine 1.7 H Est GFR ( Amer) 49 Est GFR (Non-Af Amer) 41 Random Glucose 120 H Calcium 7.3 L Phosphorus 5.5 H Magnesium 1.4 L Total Bilirubin 0.9 AST 47 ALT 22 Alkaline Phosphatase 44 Total Protein 5.7 L Albumin 2.8 L D Globulin 2.9 Albumin/Globulin Ratio 1.0 Critical Care Progress Note - Nutrition Nutrition: Nutrition Category Date Time Status Regular Diet [DIET] Diets 07/19/17 Lunch Active Assessment/Plan - Assessment and Plan (Free Text) Assessment: 62M s/p ureteroscopy, cystoscopy, FB in urethra, BEN Plan: Neuro: pain management, sedation - Fentanyl 100 mcg - Versed 2 mg inj - Propofol 100 mg - Pyridium 200 mg PO - lidocaine HCL 1% PF 5ml - Percocet 5/325 mg PO Q4H PRN - 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 Q4H PRN - Acetaminophen @ 400 mls/hr IV Q6 PRN - Benadryl 25 mg IVP Cards: HTN, HLD - Toprol XL 12.5 PO QD - Crestor 5 mg PO HS - Cardio (Dungo) Pulm: no acute issues GI: Constipation - Milk of magnesia 30 ml PO once - Regular diet : s/p cystoscopy, optical internal urethrotomy, cystogram and removal of urethral FB; skin abrasion of scrotum; suprapubic catheter - Rocephin 1 gm IVPB - Merrem IV 1 gm in NS @ 100 mls/hr IVPB Q8H - Flomax 0.4 mg PO QD - Bacitracin ointment 30 gm - iohexol 50 ml - ID (Mangia) Renal: BEN - BUN/Cr 31/1.7 - LR @ 100 mls/hr IV q10H - Magnesium sulfate 1 gm/100 ml D5W @ 200 mls/hr IVPB Q30M - Surgery ([place]) Endo: no acute issues PPx: - Protonix inj 40 mg IVP QD - SCDs <Oh Orozco S - Last Filed: 07/20/17 17:18> CCU Objective - Vital Signs / Intake & Output Vital Signs (Last 4 hours): Vital Signs Pulse Resp BP Pulse Ox 07/20/17 15:18 102/63 07/20/17 15:17 102 H 20 100 07/20/17 15:16 101 H 25 H 89/65 L 100 07/20/17 15:10 100 H 18 100 07/20/17 15:00 98 H 25 H 99 07/20/17 14:50 94 H 25 H 99 07/20/17 14:40 93 H 22 100 07/20/17 14:30 97 H 25 H 100 07/20/17 14:20 97 H 26 H 100 07/20/17 14:16 101 H 24 95/56 L 99 07/20/17 14:10 104 H 17 100 07/20/17 14:00 95 H 24 100 07/20/17 13:50 101 H 26 H 99 07/20/17 13:40 107 H 22 100 07/20/17 13:30 104 H 26 H 07/20/17 13:20 100 H 26 H 100 07/20/17 13:17 102 H 18 96/51 L 100 07/20/17 13:10 111 H 18 98 07/20/17 13:00 110 H 22 99 07/20/17 12:50 115 H 29 H 100 07/20/17 12:40 107 H 18 99 Intake and Output (Last 8hrs): Intake & Output 07/20/17 07/20/17 07/20/17 06:59 14:59 22:59 Intake Total 2800 1400 150 Output Total 120 505 300 Balance 2680 895 -150 Intake: Intake, IV Amount 2800 850 100 right hand 800 850 100 rt hand 2nd port 2000 Oral 550 50 Output: Urine 120 505 300 Suprapubic 90 505 300 Urethral (Fraser) 30 - Medications Active Medications: Active Medications Generic Name Dose Route Start Last Admin Trade Name Freq PRN Reason Stop Dose Admin Hydromorphone/Sodium Chloride 4 mg 07/19/17 17:26 Dilaudid Sheeter Machine Operator IV Q4H PRN Pain, moderate (4-7) Protocol Acetaminophen 100 mls @ 400 mls/hr 07/19/17 17:37 07/19/17 19:00 Ofirmev IV 07/20/17 17:38 100 mls Q6 PRN Administration Pain, moderate (4-7) Lactated Ringer's 1,000 mls @ 100 mls/hr 07/19/17 21:45 07/20/17 15:10 Lactated Ringer's IV 100 mls/hr .Q10H RIDGE Administration Meropenem 1 gm/ Sodium 100 mls @ 100 mls/hr 07/20/17 00:00 07/20/17 09:18 Chloride IVPB 100 mls/hr Q8H RIDGE Administration Metoprolol Succinate 12.5 mg 07/20/17 10:00 07/20/17 11:07 Toprol Xl PO 12.5 mg DAILY RIDGE Administration Oxycodone/Acetaminophen 1 tab 07/18/17 18:40 07/19/17 11:17 Percocet 5/325 Mg Tab PO 07/21/17 18:41 1 tab Q4H PRN Administration pain Pantoprazole Sodium 40 mg 07/20/17 10:00 07/20/17 10:17 Protonix Inj IVP 40 mg DAILY RIDGE Administration Prednisolone Acetate 1 ml 07/20/17 14:00 07/20/17 14:38 Pred Forte 1% Opht Susp OU 1 drop TID RIDGE Administration Rosuvastatin Calcium 5 mg 07/20/17 22:00 Crestor PO HS RIDGE Tamsulosin HCl 0.4 mg 07/20/17 10:00 07/20/17 10:17 Flomax PO 0.4 mg DAILY RIDGE Administration Tobramycin Sulfate 1 drop 07/20/17 22:00 Tobrex 0.3% Ophth Soln OU Q12 RIDGE - Patient Studies Lab Studies: Lab Studies 07/20/17 07/20/17 07/20/17 Range/Units 07:11 07:11 07:11 WBC 14.6 H (4.8-10.8) K/uL RBC 4.21 L (4.40-5.90) Mil/uL Hgb 12.8 (12.0-18.0) g/dL Hct 37.1 (35.0-51.0) % MCV 88.2 (80.0-94.0) fL MCH 30.3 (27.0-31.0) pg MCHC 34.3 (33.0-37.0) g/dL RDW 14.8 H (11.5-14.5) % Plt Count 205 (130-400) K/uL MPV 7.5 (7.2-11.7) fL Neut % (Auto) 85.1 H (50.0-75.0) % Lymph % (Auto) 4.8 L (20.0-40.0) % [place] % (Auto) 9.9 (0.0-10.0) % Eos % (Auto) 0.0 (0.0-4.0) % Baso % (Auto) 0.2 (0.0-2.0) % Neut # (Auto) 12.4 H (1.8-7.0) K/uL Lymph # (Auto) 0.7 L (1.0-4.3) K/uL [place] # (Auto) 1.5 H (0.0-0.8) K/uL Eos # (Auto) 0.0 (0.0-0.7) K/uL Baso # (Auto) 0.0 (0.0-0.2) K/uL Neutrophils % (Manual) 74 (50-75) % Band Neutrophils % 7 H (0-2) % Lymphocytes % (Manual) 8 L (20-40) % Monocytes % (Manual) 11 H (0-10) % Eosinophils % (Manual) (0-4) % Platelet Estimate Normal (NORMAL) PT 11.1 (9.7-12.2) SECONDS INR 1.0 APTT 29 (21-34) SECONDS Sodium 129 L (132-148) mmol/L Potassium 3.8 (3.6-5.2) mmol/L Chloride 103 (98-107) mmol/L Carbon Dioxide 17 L (22-30) mmol/L Anion Gap 13 (10-20) BUN 31 H (9-20) mg/dL Creatinine 1.7 H (0.8-1.5) mg/dL Est GFR ( Amer) 49 Est GFR (Non-Af Amer) 41 Random Glucose 120 H (75-110) mg/dL Calcium 7.3 L (8.6-10.4) mg/dl Phosphorus 5.5 H (2.5-4.5) mg/dL Magnesium 1.4 L (1.6-2.3) mg/dL Total Bilirubin 0.9 (0.2-1.3) mg/dL AST 47 (17-59) U/L ALT 22 (21-72) U/L Alkaline Phosphatase 44 (38-126) U/L Total Protein 5.7 L (6.3-8.3) g/dL Albumin 2.8 L D (3.5-5.0) g/dL Globulin 2.9 (2.2-3.9) gm/dL Albumin/Globulin Ratio 1.0 (1.0-2.1) 07/19/17 07/19/17 Range/Units 18:55 18:55 WBC 22.8 H D (4.8-10.8) K/uL RBC 4.66 (4.40-5.90) Mil/uL Hgb 14.0 (12.0-18.0) g/dL Hct 41.9 (35.0-51.0) % MCV 89.8 (80.0-94.0) fL MCH 30.0 (27.0-31.0) pg MCHC 33.3 (33.0-37.0) g/dL RDW 14.8 H (11.5-14.5) % Plt Count 256 (130-400) K/uL MPV 7.8 (7.2-11.7) fL Neut % (Auto) 83.8 H (50.0-75.0) % Lymph % (Auto) 9.4 L (20.0-40.0) % [place] % (Auto) 4.7 (0.0-10.0) % Eos % (Auto) 1.6 (0.0-4.0) % Baso % (Auto) 0.5 (0.0-2.0) % Neut # (Auto) 19.1 H (1.8-7.0) K/uL Lymph # (Auto) 2.1 (1.0-4.3) K/uL [place] # (Auto) 1.1 H (0.0-0.8) K/uL Eos # (Auto) 0.4 (0.0-0.7) K/uL Baso # (Auto) 0.1 (0.0-0.2) K/uL Neutrophils % (Manual) 72 (50-75) % Band Neutrophils % 12 H* (0-2) % Lymphocytes % (Manual) 9 L (20-40) % Monocytes % (Manual) 4 (0-10) % Eosinophils % (Manual) 3 (0-4) % Platelet Estimate Normal (NORMAL) PT (9.7-12.2) SECONDS INR APTT (21-34) SECONDS Sodium 133 (132-148) mmol/L Potassium 4.0 (3.6-5.2) mmol/L Chloride 100 (98-107) mmol/L Carbon Dioxide 22 (22-30) mmol/L Anion Gap 16 (10-20) BUN 16 (9-20) mg/dL Creatinine 1.1 (0.8-1.5) mg/dL Est GFR ( Amer) > 60 Est GFR (Non-Af Amer) > 60 Random Glucose 95 (75-110) mg/dL Calcium 8.4 L (8.6-10.4) mg/dl Phosphorus (2.5-4.5) mg/dL Magnesium (1.6-2.3) mg/dL Total Bilirubin 2.7 H (0.2-1.3) mg/dL AST 56 (17-59) U/L ALT < 6 L D (21-72) U/L Alkaline Phosphatase 57 (38-126) U/L Total Protein 8.0 (6.3-8.3) g/dL Albumin 4.0 (3.5-5.0) g/dL Globulin 4.0 H (2.2-3.9) gm/dL Albumin/Globulin Ratio 1.0 (1.0-2.1) Laboratory Results - last 24 hr 07/19/17 07/19/17 07/20/17 18:55 18:55 07:11 WBC 22.8 H D 14.6 H RBC 4.66 4.21 L Hgb 14.0 12.8 Hct 41.9 37.1 MCV 89.8 88.2 MCH 30.0 30.3 MCHC 33.3 34.3 RDW 14.8 H 14.8 H Plt Count 256 205 MPV 7.8 7.5 Neut % (Auto) 83.8 H 85.1 H Lymph % (Auto) 9.4 L 4.8 L [place] % (Auto) 4.7 9.9 Eos % (Auto) 1.6 0.0 Baso % (Auto) 0.5 0.2 Neut # (Auto) 19.1 H 12.4 H Lymph # (Auto) 2.1 0.7 L [place] # (Auto) 1.1 H 1.5 H Eos # (Auto) 0.4 0.0 Baso # (Auto) 0.1 0.0 Neutrophils % (Manual) 72 74 Band Neutrophils % 12 H* 7 H Lymphocytes % (Manual) 9 L 8 L Monocytes % (Manual) 4 11 H Eosinophils % (Manual) 3 Platelet Estimate Normal Normal PT INR APTT Sodium 133 Potassium 4.0 Chloride 100 Carbon Dioxide 22 Anion Gap 16 BUN 16 Creatinine 1.1 Est GFR ( Amer) > 60 Est GFR (Non-Af Amer) > 60 Random Glucose 95 Calcium 8.4 L Phosphorus Magnesium Total Bilirubin 2.7 H AST 56 ALT < 6 L D Alkaline Phosphatase 57 Total Protein 8.0 Albumin 4.0 Globulin 4.0 H Albumin/Globulin Ratio 1.0 07/20/17 07/20/17 07:11 07:11 WBC RBC Hgb Hct MCV MCH MCHC RDW Plt Count MPV Neut % (Auto) Lymph % (Auto) [place] % (Auto) Eos % (Auto) Baso % (Auto) Neut # (Auto) Lymph # (Auto) [place] # (Auto) Eos # (Auto) Baso # (Auto) Neutrophils % (Manual) Band Neutrophils % Lymphocytes % (Manual) Monocytes % (Manual) Eosinophils % (Manual) Platelet Estimate PT 11.1 INR 1.0 APTT 29 Sodium 129 L Potassium 3.8 Chloride 103 Carbon Dioxide 17 L Anion Gap 13 BUN 31 H Creatinine 1.7 H Est GFR ( Amer) 49 Est GFR (Non-Af Amer) 41 Random Glucose 120 H Calcium 7.3 L Phosphorus 5.5 H Magnesium 1.4 L Total Bilirubin 0.9 AST 47 ALT 22 Alkaline Phosphatase 44 Total Protein 5.7 L Albumin 2.8 L D Globulin 2.9 Albumin/Globulin Ratio 1.0 EKG/Cardiology Studies: Cardiology / EKG Studies 07/20/17 15:21 EKG [ELECTROCARDIOGRAM] Stat Comment: Mode Of Transportation: Reason For Exam: sob Critical Care Progress Note - Nutrition Nutrition: Nutrition Category Date Time Status Regular Diet [DIET] Diets 07/19/17 Lunch Active Attending/Attestation - Attestation I have personally seen and examined this patient.: Yes I have fully participated in the care of the patient.: Yes I have reviewed all pertinent clinical information: Yes Notes (Text): 07/20/17 16:37 Patient seen and examined in the intensive care unit. s/p Cystoscopy,optical internal Urethrotomy,cystogram and attempted removal of foreign body Continue to monitor renal function Follow-up H&H iV fluid
[2017-07-20] MEDS: Metoprolol Succinate 12.5 mg XL PO SCH (11:07)
[2017-07-20] MEDS ORDERED: PrednisoLONE 1% Opht Susp(5 ml) OU SCH (14:00)
[2017-07-20] MEDS: PrednisoLONE 1% Opht Susp(5 ml) OU SCH ×2 (14:38→18:41)
--- NOTE | 2017-07-20 17:30 | CP.PCM.CON ---
History of Present Illness - History of Present Illness History of Present Illness: 62 year old male with h/o Anemia, Benign Prostatic Hyperplasia , HTN, Hyperlipidemia,CAD , CABG 2012, suprapubic catheter admitted yesterday for urinary retention and possible sepsis Patient had cystoscopy,optical internal Urethrotomy,cystogram and attempted removal of foreign body. Following procedure patient had swelling to bilateral groins,scrotum (with skin tear) and penis with drainage of serosanguinous fluid from scrotum. Suprapubic catheter has bloody fluid,fraser catheter with small amount of clear urine patient drowsy but arousable,answers questions.No complaints except for pain in lower abdomen and scrotum has hx of sever bacterial conjuncivitis/ corneal ulcer - ESBL + gram neg s/p 6 weeks iv rx Review of Systems - Review of Systems All systems: reviewed and no additional remarkable complaints except - Constitutional Constitutional: As Per HPI - EENT Eyes: absent: As Per HPI, Blind Spots, Blurred Vision, Change in Vision, Decreased Night Vision, Diplopia, Discharge, Dry Eye, Exophthalmos, Floaters, Irritation, Itchy Eyes, Loss of Peripheral Vision, Pain, Photophobia, Requires Corrective Lenses, Sees Flashes, Spots in Vision, Tunnel Vision, Other Visual Disturbances, Loss of Vision, Other Ears: absent: As Per HPI, Decreased Hearing, Ear Discharge, Ear Pain, Tinnitus, Abnormal Hearing, Disequilibrium, Dizziness, Other Nose/Mouth/Throat: absent: As Per HPI, Epistaxis, Nasal Congestion, Nasal Discharge, Nasal Obstruction, Nasal Trauma, Nose Pain, Post Nasal Drip, Sinus Pain, Sinus Pressure, Bleeding Gums, Change in Voice, Dental Pain, Dry Mouth, Dysphagia, Halitosis, Hoarsness, Lip Swelling, Mouth Lesions, Mouth Pain, Odynophagia, Sore Throat, Throat Swelling, Tongue Swelling, Facial Pain, Neck Pain, Neck Mass, Other - Cardiovascular Cardiovascular: As Per HPI - Respiratory Respiratory: absent: As Per HPI, Cough, Dyspnea, Hemoptysis, Dyspnea on Exertion , Wheezing, Snoring, Stridor, Pain on Inspiration, Chest Congestion, Excessive Mucous Production, Change in Mucous Color, Pain with Coughing, Other - Gastrointestinal Gastrointestinal: absent: As Per HPI, Abdominal Pain, Belching, Bloating, Change in Bowel Habits, Change in Stool Character, Coffee Ground Emesis, Constipation, Cramping, Diarrhea, Dyspepsia, Dysphagia, Early Satiety, Excessive Flatus, Fecal Incontinence, Heartburn, Hematemesis, Hematochezia, Loose Stools, Melena, Nausea, Odynophagia, Temesmus, Vomiting, Other - Genitourinary Genitourinary: As Per HPI, Bladder Distension - Musculoskeletal Musculoskeletal: absent: As Per HPI, Abnormal Gait, Arthralgias, Atrophy, Back Pain, Deformity, Joint Swelling, Limited Range of Motion, Loss of Height, Muscle Cramps, Muscle Weakness, Myalgias, Neck Pain, Numbness, Radiating Pain into Limb, Stiffness, Tingling, Other - Integumentary Integumentary: As Per HPI - Neurological Neurological: absent: As Per HPI, Abnormal Gait, Abnormal Hearing, Abnormal Movements, Abnormal Speech, Behavioral Changes, Burning Sensations, Confusion, Convulsions, Disequilibrium, Dizziness, Numbness, Focal Weakness, Frequent Falls , Headaches, Lack of Coordination, Loss of Vision, Memory Loss, Paresthesias, Radicular Pain, Restless Legs, Sensory Deficit, Syncope, Tingling, Tremor, Vertigo, Weakness, Other Visual Disturbances, Other - Psychiatric Psychiatric: absent: As Per HPI, Abnormal Sleep Pattern, Anhedonia, Anxiety, Auditory Hallucinations, Behavioral Changes, Change in Appetite, Change in Libido, Confusion, Depression, Difficulty Concentrating, Hallucinations, Homicidal Ideation, Hopelessness, Irritability, Memory Loss, Mood Swings, Panic Attacks, Paranoia, Suicidal Ideation, Visual Hallucinations, Tactile Hallucinations, Other - Endocrine Endocrine: absent: As Per HPI, Change in Body Appearance, Change in Libido, Cold Intolorance, Deepening of Voice, Excessive Sweating, Fatigue, Flushing, Heat Intolorance, Increase in Ring/Shoe/Hat Size, Palpitations, Polydipsia, Polyphagia, Polyuria, Other - Hematologic/Lymphatic Hematologic: absent: As Per HPI, Easy Bleeding, Easy Bruising, Lymphadenopathy, Other Past Patient History - Infectious Disease Hx of Infectious Diseases: None - Past Medical History & Family History Past Medical History?: Yes - Past Social History Smoking Status: Never Smoked - CARDIAC Hx Cardiac Disorders: Yes Hx Hypercholesterolemia: Yes Hx Hypertension: Yes - PULMONARY Hx Respiratory Disorders: No - NEUROLOGICAL Hx Neurological Disorder: No - HEENT Hx HEENT Problems: Yes Hx Epistaxis: Yes - RENAL Hx Chronic Kidney Disease: No - ENDOCRINE/METABOLIC Hx Endocrine Disorders: No - HEMATOLOGICAL/ONCOLOGICAL Hx Blood Disorders: Yes Hx Anemia: Yes - INTEGUMENTARY Hx Dermatological Problems: No - MUSCULOSKELETAL/RHEUMATOLOGICAL Hx Musculoskeletal Disorders: No Hx Falls: No - GASTROINTESTINAL Hx Gastrointestinal Disorders: Yes Hx Hemorrhoids: Yes - GENITOURINARY/GYNECOLOGICAL Hx Genitourinary Disorders: Yes - PSYCHIATRIC Hx Psychophysiologic Disorder: No Hx Substance Use: No - SURGICAL HISTORY Hx Surgeries: Yes Hx Coronary Artery Bypass Graft: Yes (2013 X3) - ANESTHESIA Hx Anesthesia: Yes Hx Anesthesia Reactions: No Hx Malignant Hyperthermia: No Meds Allergies/Adverse Reactions: Allergies Allergy/AdvReac Type Severity Reaction Status Date / Time hydromorphone [From Dilaudid] AdvReac ITCHING Verified 07/20/17 08:41 - Medications Medications: Current Medications Hydromorphone/Sodium Chloride (Dilaudid Principal Software Engineer) 4 mg IV Q4H PRN; Protocol PRN Reason: Pain, moderate (4-7) Acetaminophen (Ofirmev) 100 mls @ 400 mls/hr IV Q6 PRN PRN Reason: Pain, moderate (4-7) Stop: 07/20/17 17:38 Last Admin: 07/19/17 19:00 Dose: 100 mls Lactated Ringer's (Lactated Ringer's) 1,000 mls @ 100 mls/hr IV .Q10H ON LICENSE OF [facility] Last Admin: 07/20/17 15:10 Dose: 100 mls/hr Meropenem 1 gm/ Sodium (Chloride) 100 mls @ 100 mls/hr IVPB Q8H ON LICENSE OF [facility] Last Admin: 07/20/17 09:18 Dose: 100 mls/hr Metoprolol Succinate (Toprol Xl) 12.5 mg PO DAILY ON LICENSE OF [facility] Last Admin: 07/20/17 11:07 Dose: 12.5 mg Oxycodone/Acetaminophen (Percocet 5/325 Mg Tab) 1 tab PO Q4H PRN PRN Reason: pain Stop: 07/21/17 18:41 Last Admin: 07/19/17 11:17 Dose: 1 tab Pantoprazole Sodium (Protonix Inj) 40 mg IVP DAILY ON LICENSE OF [facility] Last Admin: 07/20/17 10:17 Dose: 40 mg Prednisolone Acetate (Pred Forte 1% Opht Susp) 1 ml OU TID ON LICENSE OF [facility] Last Admin: 07/20/17 14:38 Dose: 1 drop Rosuvastatin Calcium (Crestor) 5 mg PO [facility] Tamsulosin HCl (Flomax) 0.4 mg PO DAILY ON LICENSE OF [facility] Last Admin: 07/20/17 10:17 Dose: 0.4 mg Tobramycin Sulfate (Tobrex 0.3% Ophth Soln) 1 drop OU Q12 ON LICENSE OF [facility] Physical Exam - Constitutional Appears: Non-toxic, Chronically Ill - Head Exam Head Exam: ATRAUMATIC, NORMAL INSPECTION, NORMOCEPHALIC - Eye Exam Eye Exam: EOMI, Normal appearance, PERRL Pupil Exam: NORMAL ACCOMODATION, PERRL - ENT Exam ENT Exam: Mucous Membranes Moist, Normal Exam - Neck Exam Neck exam: Positive for: Normal Inspection - Respiratory Exam Respiratory Exam: Clear to Auscultation Bilateral, NORMAL BREATHING PATTERN - Cardiovascular Exam Cardiovascular Exam: REGULAR RHYTHM - GI/Abdominal Exam GI & Abdominal Exam: Normal Bowel Sounds, Soft. absent: Tenderness - Rectal Exam Rectal Exam: NORMAL INSPECTION - Exam Exam: Circumcision, Scrotal Swelling, Testicular Tenderness. absent: NORMAL INSPECTION - Extremities Exam Extremities exam: Positive for: normal inspection - Back Exam Back exam: NORMAL INSPECTION - Neurological Exam Neurological exam: Alert, CN II-XII Intact, Normal Gait, Oriented x3, Reflexes Normal - Psychiatric Exam Psychiatric exam: Normal Affect, Normal Mood - Skin Skin Exam: Dry, Intact, Normal Color, Warm Results - Vital Signs Recent Vital Signs: Last Vital Signs Temp 98.5 F 07/20/17 12:00 Pulse 102 H 07/20/17 15:17 Resp 20 07/20/17 15:17 BP 102/63 07/20/17 15:18 Pulse Ox 100 07/20/17 15:17 - Labs Result Diagrams: 07/20/17 07:11 07/20/17 07:11 Labs: Laboratory Results - last 24 hr 07/19/17 07/19/17 07/20/17 18:55 18:55 07:11 WBC 22.8 H D 14.6 H RBC 4.66 4.21 L Hgb 14.0 12.8 Hct 41.9 37.1 MCV 89.8 88.2 MCH 30.0 30.3 MCHC 33.3 34.3 RDW 14.8 H 14.8 H Plt Count 256 205 MPV 7.8 7.5 Neut % (Auto) 83.8 H 85.1 H Lymph % (Auto) 9.4 L 4.8 L [place] % (Auto) 4.7 9.9 Eos % (Auto) 1.6 0.0 Baso % (Auto) 0.5 0.2 Neut # (Auto) 19.1 H 12.4 H Lymph # (Auto) 2.1 0.7 L [place] # (Auto) 1.1 H 1.5 H Eos # (Auto) 0.4 0.0 Baso # (Auto) 0.1 0.0 Neutrophils % (Manual) 72 74 Band Neutrophils % 12 H* 7 H Lymphocytes % (Manual) 9 L 8 L Monocytes % (Manual) 4 11 H Eosinophils % (Manual) 3 Platelet Estimate Normal Normal PT INR APTT Sodium 133 Potassium 4.0 Chloride 100 Carbon Dioxide 22 Anion Gap 16 BUN 16 Creatinine 1.1 Est GFR ( Amer) > 60 Est GFR (Non-Af Amer) > 60 Random Glucose 95 Calcium 8.4 L Phosphorus Magnesium Total Bilirubin 2.7 H AST 56 ALT < 6 L D Alkaline Phosphatase 57 Total Protein 8.0 Albumin 4.0 Globulin 4.0 H Albumin/Globulin Ratio 1.0 07/20/17 07/20/17 07:11 07:11 WBC RBC Hgb Hct MCV MCH MCHC RDW Plt Count MPV Neut % (Auto) Lymph % (Auto) [place] % (Auto) Eos % (Auto) Baso % (Auto) Neut # (Auto) Lymph # (Auto) [place] # (Auto) Eos # (Auto) Baso # (Auto) Neutrophils % (Manual) Band Neutrophils % Lymphocytes % (Manual) Monocytes % (Manual) Eosinophils % (Manual) Platelet Estimate PT 11.1 INR 1.0 APTT 29 Sodium 129 L Potassium 3.8 Chloride 103 Carbon Dioxide 17 L Anion Gap 13 BUN 31 H Creatinine 1.7 H Est GFR ( Amer) 49 Est GFR (Non-Af Amer) 41 Random Glucose 120 H Calcium 7.3 L Phosphorus 5.5 H Magnesium 1.4 L Total Bilirubin 0.9 AST 47 ALT 22 Alkaline Phosphatase 44 Total Protein 5.7 L Albumin 2.8 L D Globulin 2.9 Albumin/Globulin Ratio 1.0 Assessment & Plan (1) Urinary retention Status: Acute (2) Acute blood loss anemia Status: Acute (3) BPH (benign prostatic hyperplasia) Status: Acute (4) Complication, suprapubic catheter obstruction Status: Acute (5) Fraser catheter problem Status: Acute (6) Hematuria Status: Acute (7) Suprapubic catheter Status: Acute (8) Urethral stricture Status: Acute - Assessment and Plan (Free Text) Assessment: events noted cultures pending foreign body + will need to be removed
[2017-07-20] MEDS ORDERED: Tobramycin 0.3% OPHT SOLN OU SCH (18:00)
[2017-07-20 18:02] LABS: CK-MB 3.24 ng/mL (0.0-3.38); TROPONIN I 0.069 ng/mL (0.00-0.120)
[2017-07-20 21:02] LABS: ALBUMIN 2.4 g/dL (3.5-5.0); CALCIUM 7.5 mg/dl (8.6-10.4)
[2017-07-21] MEDS: Lactated Ringer's 1,000 ML IV SCH ×2 (04:03→15:53)
[2017-07-21] MEDS: Lactated Ringer's 1,000 ML IV ONE (04:03)
[2017-07-21 06:38] LABS: BASO % 0.3 % (0.0-2.0); EOS # 0.1 K/uL (0.0-0.7); EOS % 1.1 % (0.0-4.0); HEMOGLOBIN 11.3 g/dL (12.0-18.0); LYMPH # 0.9 K/uL (1.0-4.3); LYMPH % 7.5 % (20.0-40.0); MEAN CELL VOLUME 89.6 fL (80.0-94.0); MEAN CORPUSCULAR HEMOGLOBIN 29.9 pg (27.0-31.0); MEAN CORPUSCULAR HGB CONC 33.4 g/dL (33.0-37.0); MEAN PLATELET VOLUME 7.5 fL (7.2-11.7); MONO # 1.5 K/uL (0.0-0.8); MONO % 12.4 % (0.0-10.0); NEUT # 9.7 K/uL (1.8-7.0); NEUT % 78.7 % (50.0-75.0); NRBC % 0.1 % (0.0-2.0); PLATELET COUNT 166 K/uL (130-400); RBC 3.78 Mil/uL (4.40-5.90); RED CELL DISTRIBUTION WIDTH 14.9 % (11.5-14.5); WHITE BLOOD COUNT 12.3 K/uL (4.8-10.8)
[2017-07-21 07:08] LABS: ALB/GLOB RATIO 0.9 (1.0-2.1); ALBUMIN 2.5 g/dL (3.5-5.0); ALT/SGPT 21 U/L (21-72); AST/SGOT 29 U/L (17-59); BLOOD UREA NITROGEN 32 mg/dL (9-20); CALCIUM 7.7 mg/dl (8.6-10.4); GFR AFRICAN-AMERICAN > 60; GFR NON-AFRICAN AMERICAN 56; MAGNESIUM 2.3 mg/dL (1.6-2.3)
--- NOTE | 2017-07-21 07:26 | OP ---
PROCEDURE DATE: 07/19/2017 PREOPERATIVE DIAGNOSES: 1. Urethral stricture, with massive amount of scar tissue. 2. Hematuria. 3. Urinary retention. 4. Voiding dysfunction. POSTOPERATIVE DIAGNOSES: 1. Urethral stricture, with massive amount of scar tissue. 2. Hematuria. 3. Urinary retention. 4. Voiding dysfunction. PROCEDURE: Cystoscopy, internal optical urethrotomy, insertion of Leblanc catheter, and cystogram. ESTIMATED BLOOD LOSS: Less than 25 mL. COMPLICATIONS: Extravasation of fluid within the superficial tissue. See the body of the report and for further details, but basically the fluid, which we noted was extravasating during the procedure along the fascial planes of the superficial tissue of the penis, scrotum, perineum, and anterior abdominal wall. See the body of the report. At the termination of the procedure, our determined goal, which was to get a Leblanc catheter and a suprapubic catheter, was accomplished. See the details in the body of the report as well at the termination of the procedure, the patient has a broken knife blade that I can see physically with my eyes in the very distal tip of the urethra, but I cannot get to it safely. See in the body of the report as well I can see it visually on the fluoro imaging. See the addendum at the plan at the end. Overall, the patient tolerated the procedure well. During the procedure itself, we monitored his blood pressure, heart rates, etc. There was never any change, there was never any bleeding. Anesthesia was monitoring his procedure. I do want to mention also the patient was on antibiotics. He had previously received Rocephin, as well as gentamicin. In fact he is scheduled for dose of gentamicin during the procedure. Just at the baseline, in terms of indications for this procedure, see the previous indications for many multiple procedures including yesterday's procedure on 07/18/2017, where we were successfully for the first time in over a year able to gain access by getting a wire through his penis, we kept him with the wire for 24 hours. I have explained to the patient in great detail, that my best recommendation from my end will be to leave him alone and just change his suprapubic catheter. He has never been willing to accept this. I have recommended more than 25 times that the patient seek out other urologists. He gave three from another urologist. He has some underlying scar tissue problem. I have explained this to him as evidenced by the fact that he has about 6 to 8 operations for his eye recently for what is normally one procedure. As evidenced to the patient, I have explained him to just look at his anterior chest wall where he has a gigantic keloid and I have explained that he had some kind of scarring issue. I discussed with him besides seeing urologist, to see other either an special education administrator/stockroom selector to see if he has some kind of connective tissue disorder. He has never seeked out any other assistance. I have asked him to see other urologists. He mentions about seeing his brother's urologist, but he never does. I have given him the names of other doctors that are reconstruction people, he has responded that he has no way to get to them and that they do not take his insurance. I have discussed with him many many other issues over time and that from my end his best bet is just to leave the suprapubic catheter. However, he has asked me on multiple occasions to give a try just one time more. After yesterday's successful finally gaining access through the penis, today I wanted to do our best which we did, gain access through the urethra, through very thickened scar tissue. Despite the complication of extravasation of fluid, this will resolve, but now we have access through and through his penis and his urethra. I do want to mention one of the operative findings and that is his prostate is open from the verumontanum and is opened. This we know also from previous cystoscopic, but it is worthwhile noting and this stricture is the distal urethral stricture. DESCRIPTION OF PROCEDURE: After obtaining informed consent, and after explaining to the patient risks, benefits of treatment, and alternatives including risks of bowel perforation, including risk of rectal perforation, including multiple risks. After discussing all those risks, the patient is here now for the above procedure. After obtaining informed consent, the patient was placed on the table in routine manner for time-out. The patient was placed in a lithotomy. The area of an indwelling wire that has been in for 24 hours now, that wire goes through to the suprapubic catheter. I should mention his anterior abdominal wall is "easy" around the suprapubic catheter. It is ablated suprapubic and it is encrusted as if it has been there for an excessively long time. We prepped the wound in sterile technique. I did not want to remove the suprapubic catheter, it is draining, it is in place. I will mention now that later once we get access to the bladder, we can see perfectly the balloon is perfect and I am glad we did not remove it. Just at the baseline, he has a [place] tree bladder and the anatomy therefore has been always very difficult, even just to change the cystostomy tube. It is difficult. suprapubic. We cleaned it well. We also cleaned the wire. The wire goes through the cystostomy tube and coming out the penis and I tied it together, so that it would not just get dislodged. We now set up the urethrotome for the internal optical urethrotomy. I cannot backload the wire through the side port. So I will go when adjacent to it. is noted and multiple pictures are taken and it is just a 6 x 6 x 6 scar. So I cut with the knife, but the knife does not cut well. I tried again, actually the knife bent, so at this point we changed the knife to another knife and we again tried back loading. With various techniques with the plastic, we could not get it to back load to the sides, so again we went adjacent. I felt that if I could get over the wire, it will be a little bit better. It is very difficult because it is very distal. We tried gently and carefully. I do note the fluid filling up within the penis, but again the patient had asked me and I was going to do my best to get through. At this point, we carefully and gently continued cutting, but we had to give a little force. We eventually converted to hot knife and connect via electricity and again push and push. I do want to mention that the knife is bent again. Eventually, it will in fact break. See below the remainder of the report. Once we do this well, although I do not see any charred tissue material, there is no odor from the cautery. The Bovie on about 40 and I do not see any bubbling, charring of the light, but once we have the electricity connected, it seems as if we were able to cut a little bit better around the wire or over the wire. Once we do this, we were able to gain access through the urethra. This is no light task. I was working and pushing. We worked diligently and carefully. Once we passed this stricture, this stricture is extremely thick. It is probably at least 1.5 cm in length. In total, it is extremely thick. It is thick and long, both. I took multiple pictures throughout the procedure, but once we got past this and we gained access to the urethra, the rest of the way from the verumontanum is essentially open. Within the urinary bladder, I can identify there is a lot of it seen within the bladder. I can identify the Leblanc catheter. So, now I have the wire in place and I have a 21 scope in. I go back to look at the urethra. I note the knife that has broken. I went back and forth a few times to make sure that we have a through and through and that it was nicely cut and it was. We were now up to our third knife. The next part we spent, we did not want to leave the broken knife inside. We next spent a tremendous amount of time with various equipments until trying to reach in and get back. We just wanted to make sure that we got the knife out and we did our best. I had the great nursing assistance for this and great assistance in the OR and with fluoroscopic imaging, we could see the knife visually with our eyes. We could see knife on the imaging with the fluoroscopic imaging, it does not matter what we tried, We tried a cystoscope with a biopsy forceps, we tried a cystoscope with a grasping forceps. We tried the Alligator forceps, we tried the rigid. We tried even using stone basketing and graft stitch, opened up a tremendous amount of equipment, we could see the knife, I even called the second surgeon into the room to see if he had any other suggestions for any equipment that might be available. Somebody else who has fifty years of OR practicality and after spending a tremendous amount of time in seeing fluid being absorbed into the patient, we just could not get that out. So, at this point we inserted a Leblanc catheter via the urethra. We secured in place. We irrigated to make sure everything is fine. I also did a cystogram under fluoroscopic imaging. I put contrast in the balloon to make sure that I could see exactly where it is within bladder neck. We confirmed our positioning. We irrigated and irrigated well. So, overall, the patient throughout the procedure tolerated it well. There was no change in the blood pressure and vital signs, etc. Throughout the procedure, we monitored him very closely. At this point, we addressed the scrotal edema. There is a little wound abrasion. We put some bacitracin. We wrapped the scrotum up and elevated. The fluid is all noted. All found in the fascial planes with no . In total, we monitored the urine in and out. We handled about 3 L output. We put about 5 L in, so it is about 2 L of fluid that is noted within the scrotal wall, penile wall, anterior abdominal wall, and even through the perineum. It was all palpable. I do also know that there is definitely no rectal perforation and there is no bladder perforation. At this point, we secured everything in place. The patient is in the supine position. We elevated the scrotum, applied bacitracin. The patient tolerated the procedure well without further complications. Salvador Tristan MD
--- NOTE | 2017-07-21 07:27 | OP ---
PROCEDURE DATE: 07/18/2017 PREOPERATIVE DIAGNOSES: Hematuria, urinary retention, voiding dysfunction, urethral stricture disease. POSTOPERATIVE DIAGNOSES: Hematuria, urinary retention, voiding dysfunction, urethral stricture disease. PROCEDURE: A retrograde urethrogram, a cystoscopy, an antegrade urethrogram, an antegrade cystoscopy, insertion of a wire across the stricture, insertion of a cystostomy tube, and a cystogram. In fact, now that he has had no complications, I was finally after greater than a year and a half able to get a wire passed, there was some tense stricture. At the termination of the procedure, the patient has a new cystostomy tube, a wire that goes from the suprapubic area through the penis. COMPLICATIONS: There were no complications. ESTIMATED BLOOD LOSS: Less than 20 mL. INDICATIONS: See the history and physical, see also many previous dictated notes, the patient had tremendous scar tissue. See the history and physical for further details. Tremendous scar tissue. I recommended actually that he seek out consultation with either a seat coverer or a formula clerk or somebody who can discuss connective skin tissue disorder where he was . He had tremendous keloid on his anterior chest wall. He has a tremendous amount of urethral stricture disease and just recently he had eye surgery unexpectedly to him. Yet, the way he describes it, he has had some phone contact with a resident taking care of him, but he apparently had about 8 to 10 surgeries on his eye with many complications. So I explained to the patient that from our end of things, it is best that he is just to keep the cystostomy tube. We changed it every 4 to 6 weeks, and although he has to use this, its good access really mean nothing and I do not think that his stricture would be easy to fix. I told I do not do open urethral repairs, but that is the suggestion I gave him, he needs multiple boxes over time, but his response is he really cannot get them where they do not think of insurance. I explained to him that from my end I will try my best to do it with an internal optical urethrotomy. Today, after multiple events, previously every time when I do it too much, he complains that his penis hurts when he gets forward and I appreciate that, so most likely change the cystostomy tube, sometimes I even do that in the office. He has a [place] bladder with a very trabeculated system and even changing cystostomy tube is difficult, sometimes even with fluoroscopic imaging in literally a second, we sometimes can lose access and have to dilate slowly, carefully, gently. Today, we were able to get a wire passed, but nothing more. Once we did this, see the plans in the above and at the end. DESCRIPTION OF PROCEDURE: After obtaining informed consent, the patient was placed on the operating table. Routine monitor was placed. We kept the patient supine as well as we used to do. I told the patient that we are going to try a little extra today. We have the patient with assistance. We will have flexible cystoscope to view. using the , I also tried a wire, it does not go through. Then I tried the flexible cystoscope. I can get to a point where I see a stricture. It is very very distal. It is within just below the fossa navicularis. We now continued slowly, carefully, I cannot get anything passed through with the wire with the scope in place. So now we go from the above, we removed the old catheter. It is all under sterile technique. We had to remove the old catheter. I introduced the cystoscope via the cystostomy tube. It is a flexible scope, I can follow it on the floor. I go through the bladder neck. I still cannot get a wire or anything past at this point, but with the flexible scope in place, antegrade passed the prostate and I went through a thick thick wall of tissue. At this point, though I inject contrast, I can see the contrast go through. So therefore, I am inspired to try a little further and with a little extra and a little this, a little that, the sensor wire go through the flexible scope, goes antegrade right through the scope gently, carefully, and it comes out the tip of the penis, I could follow it on the floor as it did appear. At this point, we completed the procedure. I inserted a new Leblanc catheter adjacent to the wire because I want to leave the wire in place, see below plan. Then, I inserted the cystostomy tube. I did a cystogram to confirm its position. It is draining well. It irrigates well. I secured the wire and placed to the abdominal wall. So, now the patient has a wire that is through from the tip of the penis all the way through the cystostomy tube. We secured it in place and a new Leblanc catheter is in the cystostomy tube. The patient tolerated without complications. ADDENDUM TO THIS NOTE: My plan is to bring the patient back from [facility]. I also discussed with the patient now and I will discuss it again before the procedure that still despite the fact that , my best recommendation is going to be to remove the wire and just leave him alone. It is such thick tissue and he had some underlying scarring disorder. But every time we have discussed that, the patient wants to see he can do anything. He just cannot understand the living with the cystoscopy tube in place. Without Leblanc catheter, he would like to urinate through his penis. I explained he needs open surgical repair, but we will give our best. This was all explained to the patient now and will be explained to him prior. Salvador Tristan MD
--- NOTE | 2017-07-21 07:28 | HP ---
UROLOGY ADMISSION REASON FOR ADMISSION: Emergency change of cystostomy tube. The patient actually presents to the ER today. He is well known to me, very pleasant, extremely anxious patient with multiple medical issues. He has coronary artery disease. He has had bypass surgery. He is patient of Dr. Vicente. He also has anxiety disorder. See the medications listed below. From a urology standpoint, he has this scar tissue in the very distal urethra just around the fossa navicularis region. So thick that we never even get a wire or anything past it and now actually we were scheduled to get ready to change the cystostomy tube, but he ended up coming to the ER. He actually went to the ER over the weekend, but the ER did not feel he needed to be admitted. He also was having tremendous amounts of constipation and trouble with his bowels. We have discussed options with the patient and after him presenting to the emergency room today, we are bringing him in as an emergency and we will bring him straight up to the OR. See below. PAST MEDICAL AND SURGICAL HISTORY: As mentioned above. He has multiple medical issues. He is a patient of . He recently had ophthalmology surgery. He describes about 8 or 10 procedures. I had some phone contact with some residents that were taking care of him, but now he says he is cleared. He had infections and scarring and other problems with his ophthalmology surgery. He is not sure about the details. Anyway, after discussing all the options regarding him, the patient presents now to our emergency room and will be admitting him cystostomy tube. See the addendum at the end of this note, but basically we were able to gain access to his urethra through and through and we are actually going to admit him and then try to do an internal optical urethrotomy. SOCIAL HISTORY: He lives alone. He has a brother. He has discussed with me seeing his brother a urologist which we have encouraged and recommended, but today to my knowledge he has not seen him. Otherwise, socially he is retired. MEDICATIONS: See chart. REVIEW OF SYSTEMS: As listed above. No weight loss, chest pain, or shortness of breath. MEDICATIONS: See chart. ALLERGIES: NO KNOWN ALLERGIES. PHYSICAL EXAMINATION: GENERAL: He is a thin male, in no apparent distress. VITAL SIGNS: Noted. LUNGS: Clear. HEART: Normal S1, S2. I just want to mention on his anterior chest wall, there is a tremendous thick keloid tissue. HEENT: His recent ophthalmologic care and eye surgery. ABDOMEN: Soft. Cystostomy tube is in place, there is a lot of encrustation around the cystostomy tube. Tremendous amount of in the location with a 22-Bruneian catheter. GENITALIA: He has a normal male phallus, , no testicular masses. EXTREMITIES: Lower extremities are noted, there are again multiple scars just along his lower extremities. I did not take pictures, but just they are not worthy. NEUROLOGIC: Otherwise, neurologically, extremities otherwise unremarkable. LABORATORIES: See chart. DIAGNOSES: Urinary retention, hematuria, voiding dysfunction, urethral stricture disease. I want to mention we discussed with the patient the options again and again from the urology standpoint. At this point, I am going to change the cystostomy tube. At the minimum, is not working and he has now been here. within the last week. We will bring him in as an emergency. I have discussed with him options at length and my best recommendation is that he just live with the cystostomy tube and he does not try to repair it. I did discuss with him other options, particularly I am recommending another surgeon who would do an some kind of open surgical repair. I explained to the patient that I do not do it , it is not even my best recommendation for him. I do not think he should do that. He says though he is very unhappy with living with the catheter with the cystostomy tube, when he is a relatively young and otherwise active gentleman. I have given him the names of surgeons multiple times, who I think could help him more than I could in terms of open surgical repair despite the fact that I do not think that it is his best recommendation or my best recommendation for him and his best outcome. I did discuss those possibilities. As for today, we are changing cystostomy tube. He asked me again and I am going to try to see if I can get a wire through and make some more progress for his benefit. So, at this point the urology plan is to bring him in as an emergency and bring him up to the OR, at least change the cystostomy tube and we are going to try to change the cystostomy tube and see if we can get anything through. I have explained to the patient risks, benefits, and treatment alternatives. We are going to plan to proceed. ADDENDUM: See the operative report. We were very gonzales and successful today at gaining access through and through to the operative report. I was for the first time in over a year now, I was able to get access to the bladder through the urethra and was able to get a wire through, though it is only a wire, but I am going to keep the patient as an emergency admission and I am going to try tomorrow to do an internal optical urethrotomy. So, further plans will follow. We will bring him in as an emergency admission and we are going to plan for an I[facility] for tomorrow. Salvador Tristan MD
--- NOTE | 2017-07-21 08:09 | CP.PCM.CON ---
History of Present Illness - History of Present Illness History of Present Illness: Reason for consultation: hx of CAD post cystoscopy HPI: 62 year old male with h/o Anemia, Benign Prostatic Hyperplasia , HTN, Hyperlipidemia,CAD , CABG 2013, suprapubic catheter admitted yesterday for urinary retention and possible sepsis Patient had cystoscopy,optical internal Urethrotomy,cystogram and attempted removal of foreign body. Following procedure patient had swelling to bilateral groins,scrotum (with skin tear) and penis with drainage of serosanguinous fluid from scrotum. Suprapubic catheter has bloody fluid,fraser catheter with small amount of clear urine patient drowsy but arousable,answers questions.No complaints except for pain in lower abdomen and scrotum Review of Systems - Review of Systems Review of Systems: groin pain Past Patient History - Infectious Disease Hx of Infectious Diseases: None - Past Medical History & Family History Past Medical History?: Yes - Past Social History Smoking Status: Never Smoked - CARDIAC Hx Cardiac Disorders: Yes Hx Hypercholesterolemia: Yes Hx Hypertension: Yes - PULMONARY Hx Respiratory Disorders: No - NEUROLOGICAL Hx Neurological Disorder: No - HEENT Hx HEENT Problems: Yes Hx Epistaxis: Yes - RENAL Hx Chronic Kidney Disease: No - ENDOCRINE/METABOLIC Hx Endocrine Disorders: No - HEMATOLOGICAL/ONCOLOGICAL Hx Blood Disorders: Yes Hx Anemia: Yes - INTEGUMENTARY Hx Dermatological Problems: No - MUSCULOSKELETAL/RHEUMATOLOGICAL Hx Musculoskeletal Disorders: No Hx Falls: No - GASTROINTESTINAL Hx Gastrointestinal Disorders: Yes Hx Hemorrhoids: Yes - GENITOURINARY/GYNECOLOGICAL Hx Genitourinary Disorders: Yes - PSYCHIATRIC Hx Psychophysiologic Disorder: No Hx Substance Use: No - SURGICAL HISTORY Hx Surgeries: Yes Hx Coronary Artery Bypass Graft: Yes (2013 X3) - ANESTHESIA Hx Anesthesia: Yes Hx Anesthesia Reactions: No Hx Malignant Hyperthermia: No Meds Allergies/Adverse Reactions: Allergies Allergy/AdvReac Type Severity Reaction Status Date / Time hydromorphone [From Dilaudid] AdvReac ITCHING Verified 07/20/17 08:41 - Medications Medications: Current Medications Lactated Ringer's (Lactated Ringer's) 1,000 mls @ 100 mls/hr IV .Q10H [facility] Last Admin: 07/21/17 04:03 Dose: 100 mls/hr Meropenem 1 gm/ Sodium (Chloride) 100 mls @ 100 mls/hr IVPB Q8H [facility] Last Admin: 07/20/17 23:50 Dose: 100 mls/hr Metoprolol Succinate (Toprol Xl) 12.5 mg PO DAILY [facility] Last Admin: 07/20/17 11:07 Dose: 12.5 mg Oxycodone/Acetaminophen (Percocet 5/325 Mg Tab) 1 tab PO Q4H PRN PRN Reason: pain Stop: 07/21/17 18:41 Last Admin: 07/19/17 11:17 Dose: 1 tab Pantoprazole Sodium (Protonix Inj) 40 mg IVP DAILY [facility] Last Admin: 07/20/17 10:17 Dose: 40 mg Potassium Chloride (K-Dur 20 Meq Er Tab) 20 meq PO DAILY [facility] Prednisolone Acetate (Pred Forte 1% Opht Susp) 1 ml OU 0900,1400,2100 [facility] Rosuvastatin Calcium (Crestor) 5 mg PO HS [facility] Last Admin: 07/20/17 21:52 Dose: 5 mg Tamsulosin HCl (Flomax) 0.4 mg PO DAILY [facility] Last Admin: 07/20/17 10:17 Dose: 0.4 mg Tobramycin Sulfate (Tobrex 0.3% Ophth Soln) 1 drop OU Q12H [facility] Physical Exam - Constitutional Appears: Non-toxic - Head Exam Head Exam: NORMAL INSPECTION - Eye Exam Eye Exam: absent: Scleral icterus - ENT Exam ENT Exam: Mucous Membranes Dry - Respiratory Exam Respiratory Exam: NORMAL BREATHING PATTERN - Cardiovascular Exam Cardiovascular Exam: REGULAR RHYTHM - GI/Abdominal Exam GI & Abdominal Exam: Normal Bowel Sounds, Soft - Extremities Exam Extremities exam: Negative for: pedal edema - Neurological Exam Neurological exam: Alert, Oriented x3 Results - Vital Signs Recent Vital Signs: Last Vital Signs Temp 98 F 07/21/17 04:00 Pulse 84 07/21/17 07:17 Resp 15 07/21/17 07:17 BP 117/75 07/21/17 07:17 Pulse Ox 100 07/21/17 07:17 - Labs Result Diagrams: 07/21/17 06:30 07/21/17 06:30 Labs: Laboratory Results - last 24 hr 07/20/17 07/20/17 07/20/17 07:11 17:29 17:29 WBC RBC Hgb Hct MCV MCH MCHC RDW Plt Count MPV Neut % (Auto) Lymph % (Auto) [place] % (Auto) Eos % (Auto) Baso % (Auto) Neut # (Auto) Lymph # (Auto) [place] # (Auto) Eos # (Auto) Baso # (Auto) Neutrophils % (Manual) 74 Band Neutrophils % 7 H Lymphocytes % (Manual) 8 L Monocytes % (Manual) 11 H Platelet Estimate Normal Sodium 127 L Potassium 3.5 L Chloride 100 Carbon Dioxide 19 L Anion Gap 11 BUN 47 H Creatinine 1.7 H Est GFR ( Amer) 49 Est GFR (Non-Af Amer) 41 Random Glucose 112 H Calcium 7.5 L Phosphorus Magnesium Total Bilirubin 0.2 AST 64 H D ALT 19 L Alkaline Phosphatase 45 Total Creatine Kinase 472 H CK-MB (Mass) 3.24 Troponin I 0.0690 Total Protein 4.8 L Albumin 2.4 L Globulin 2.4 Albumin/Globulin Ratio 1.0 07/21/17 07/21/17 06:30 06:30 WBC 12.3 H RBC 3.78 L Hgb 11.3 L Hct 33.9 L MCV 89.6 MCH 29.9 MCHC 33.4 RDW 14.9 H Plt Count 166 MPV 7.5 Neut % (Auto) 78.7 H Lymph % (Auto) 7.5 L [place] % (Auto) 12.4 H Eos % (Auto) 1.1 Baso % (Auto) 0.3 Neut # (Auto) 9.7 H Lymph # (Auto) 0.9 L [place] # (Auto) 1.5 H Eos # (Auto) 0.1 Baso # (Auto) 0.0 Neutrophils % (Manual) Band Neutrophils % Lymphocytes % (Manual) Monocytes % (Manual) Platelet Estimate Sodium 134 Potassium 3.7 Chloride 106 Carbon Dioxide 23 Anion Gap 8 L BUN 32 H Creatinine 1.3 Est GFR ( Amer) > 60 Est GFR (Non-Af Amer) 56 Random Glucose 101 Calcium 7.7 L Phosphorus 2.8 Magnesium 2.3 Total Bilirubin 0.3 AST 29 ALT 21 Alkaline Phosphatase 44 Total Creatine Kinase CK-MB (Mass) Troponin I 0.0150 Total Protein 5.1 L Albumin 2.5 L Globulin 2.6 Albumin/Globulin Ratio 0.9 L Assessment & Plan - Assessment and Plan (Free Text) Assessment: CAD T2dm HTN s/p cystoscopy Plan: Cont meds Cont abtx as per ID
[2017-07-21] MEDS: Meropenem 1 GM in Sodium Chloride 0.9% 100 ML IVPB SCH ×2 (08:24→16:26)
[2017-07-21 08:39] LABS: BANDS 1 % (0-2); EOSINOPHIL 3 % (0-4); MYELOCYTE 1 % (0-0); TOTAL CELLS COUNTED 100
[2017-07-21 08:40] LABS: LARGE PLATELETS PRESENT; LYMPHOCYTE 8 % (20-40); MONOCYTE 12 % (0-10); NEUTROPHIL 75 % (50-75); PLATELET ESTIMATE NORMAL (NORMAL); TOXIC GRANULATION PRESENT
[2017-07-21] MEDS: PrednisoLONE 1% Opht Susp(5 ml) OU SCH ×4 (09:00→21:24)
[2017-07-21] MEDS: Tobramycin 0.3% OPHT SOLN OU SCH ×2 (10:00→21:22)
--- NOTE | 2017-07-21 10:35 | PCM.URO ---
Urology Progress Note - Objective Lab Studies: Reviewed (all notes dictated , pt improving , thanks for all the consults assistance) Lab Results Last 24 Hours: Laboratory Results - last 24 hr 07/20/17 07/20/17 07/21/17 17:29 17:29 06:30 WBC RBC Hgb Hct MCV MCH MCHC RDW Plt Count MPV Neut % (Auto) Lymph % (Auto) [place] % (Auto) Eos % (Auto) Baso % (Auto) Neut # (Auto) Lymph # (Auto) [place] # (Auto) Eos # (Auto) Baso # (Auto) Neutrophils % (Manual) Band Neutrophils % Lymphocytes % (Manual) Monocytes % (Manual) Eosinophils % (Manual) Myelocytes % Toxic Granulation Platelet Estimate Large Platelets Sodium 127 L 134 Potassium 3.5 L 3.7 Chloride 100 106 Carbon Dioxide 19 L 23 Anion Gap 11 8 L BUN 47 H 32 H Creatinine 1.7 H 1.3 Est GFR ( Amer) 49 > 60 Est GFR (Non-Af Amer) 41 56 Random Glucose 112 H 101 Calcium 7.5 L 7.7 L Phosphorus 2.8 Magnesium 2.3 Total Bilirubin 0.2 0.3 AST 64 H D 29 ALT 19 L 21 Alkaline Phosphatase 45 44 Total Creatine Kinase 472 H CK-MB (Mass) 3.24 Troponin I 0.0690 0.0150 Total Protein 4.8 L 5.1 L Albumin 2.4 L 2.5 L Globulin 2.4 2.6 Albumin/Globulin Ratio 1.0 0.9 L 07/21/17 06:30 WBC 12.3 H RBC 3.78 L Hgb 11.3 L Hct 33.9 L MCV 89.6 MCH 29.9 MCHC 33.4 RDW 14.9 H Plt Count 166 MPV 7.5 Neut % (Auto) 78.7 H Lymph % (Auto) 7.5 L [place] % (Auto) 12.4 H Eos % (Auto) 1.1 Baso % (Auto) 0.3 Neut # (Auto) 9.7 H Lymph # (Auto) 0.9 L [place] # (Auto) 1.5 H Eos # (Auto) 0.1 Baso # (Auto) 0.0 Neutrophils % (Manual) 75 Band Neutrophils % 1 Lymphocytes % (Manual) 8 L Monocytes % (Manual) 12 H Eosinophils % (Manual) 3 Myelocytes % 1 H Toxic Granulation Present Platelet Estimate Normal Large Platelets Present Sodium Potassium Chloride Carbon Dioxide Anion Gap BUN Creatinine Est GFR ( Amer) Est GFR (Non-Af Amer) Random Glucose Calcium Phosphorus Magnesium Total Bilirubin AST ALT Alkaline Phosphatase Total Creatine Kinase CK-MB (Mass) Troponin I Total Protein Albumin Globulin Albumin/Globulin Ratio Intake & Output: Intake & Output 07/20/17 07/21/17 07/21/17 18:59 06:59 18:59 Intake Total 2100 1200 100 Output Total 2100 2100 60 Balance 0 -900 40 Weight 158 lb Intake: Intake, IV Amount 1250 1200 100 Left Hand 700 100 right hand 1250 500 0 Oral 850 Output: Urine 2099 2100 60 Suprapubic 1000 650 Urethral (Leblanc) 1100 1450 60 Vital Signs: Vital Signs - 24 hr 07/20/17 07/20/17 07/20/17 10:40 10:50 11:00 Temperature Pulse Rate 103 H 90 89 Respiratory 21 26 H Rate Blood Pressure O2 Sat by Pulse 100 Oximetry 07/20/17 07/20/17 07/20/17 11:10 11:16 11:20 Temperature Pulse Rate 96 H 97 H 110 H Respiratory 25 H 25 H 19 Rate Blood Pressure 109/58 L O2 Sat by Pulse 100 100 100 Oximetry 07/20/17 07/20/17 07/20/17 11:30 11:40 11:50 Temperature Pulse Rate 96 H 103 H 96 H Respiratory 25 H 25 H 26 H Rate Blood Pressure O2 Sat by Pulse 100 100 100 Oximetry 07/20/17 07/20/17 07/20/17 12:00 12:10 12:17 Temperature 98.5 F Pulse Rate 95 H 97 H 101 H Respiratory 24 22 23 Rate Blood Pressure 108/56 L O2 Sat by Pulse 100 97 99 Oximetry 07/20/17 07/20/17 07/20/17 12:20 12:30 12:40 Temperature Pulse Rate 94 H 93 H 107 H Respiratory 25 H 22 18 Rate Blood Pressure O2 Sat by Pulse 100 100 99 Oximetry 07/20/17 07/20/17 07/20/17 12:50 13:00 13:10 Temperature Pulse Rate 115 H 110 H 111 H Respiratory 29 H 22 18 Rate Blood Pressure O2 Sat by Pulse 100 99 98 Oximetry 07/20/17 07/20/17 07/20/17 13:17 13:20 13:30 Temperature Pulse Rate 102 H 100 H 104 H Respiratory 18 26 H 26 H Rate Blood Pressure 96/51 L O2 Sat by Pulse 100 100 Oximetry 07/20/17 07/20/17 07/20/17 13:40 13:50 14:00 Temperature Pulse Rate 107 H 101 H 95 H Respiratory 22 26 H 24 Rate Blood Pressure O2 Sat by Pulse 100 99 100 Oximetry 07/20/17 07/20/17 07/20/17 14:10 14:16 14:20 Temperature Pulse Rate 104 H 101 H 97 H Respiratory 17 24 26 H Rate Blood Pressure 95/56 L O2 Sat by Pulse 100 99 100 Oximetry 07/20/17 07/20/17 07/20/17 14:30 14:40 14:50 Temperature Pulse Rate 97 H 93 H 94 H Respiratory 25 H 22 25 H Rate Blood Pressure O2 Sat by Pulse 100 100 99 Oximetry 07/20/17 07/20/17 07/20/17 15:00 15:10 15:16 Temperature Pulse Rate 98 H 100 H 101 H Respiratory 25 H 18 25 H Rate Blood Pressure 89/65 L O2 Sat by Pulse 99 100 100 Oximetry 07/20/17 07/20/17 07/20/17 15:17 15:18 15:20 Temperature Pulse Rate 102 H 101 H 102 H Respiratory 20 18 17 Rate Blood Pressure 102/63 O2 Sat by Pulse 100 100 100 Oximetry 07/20/17 07/20/17 07/20/17 15:30 15:40 15:50 Temperature Pulse Rate 100 H 99 H 97 H Respiratory 22 22 23 Rate Blood Pressure O2 Sat by Pulse 100 100 100 Oximetry 07/20/17 07/20/17 07/20/17 16:00 16:10 16:16 Temperature 99.1 F Pulse Rate 102 H 110 H 98 H Respiratory 26 H 22 26 H Rate Blood Pressure 114/66 O2 Sat by Pulse 100 100 99 Oximetry 07/20/17 07/20/17 07/20/17 16:20 16:30 16:40 Temperature Pulse Rate 103 H 101 H 97 H Respiratory 24 22 26 H Rate Blood Pressure O2 Sat by Pulse 100 99 99 Oximetry 07/20/17 07/20/17 07/20/17 16:50 17:00 17:10 Temperature Pulse Rate 95 H 96 H 99 H Respiratory 25 H 26 H 24 Rate Blood Pressure O2 Sat by Pulse 98 99 98 Oximetry 07/20/17 07/20/17 07/20/17 17:16 17:20 17:30 Temperature Pulse Rate 114 H 103 H 95 H Respiratory 21 25 H 28 H Rate Blood Pressure 110/56 L O2 Sat by Pulse 99 98 98 Oximetry 07/20/17 07/20/17 07/20/17 17:40 17:50 18:00 Temperature Pulse Rate 94 H 94 H 101 H Respiratory 22 22 12 Rate Blood Pressure O2 Sat by Pulse 98 98 98 Oximetry 07/20/17 07/20/17 07/20/17 18:10 18:16 18:20 Temperature Pulse Rate 98 H 91 H 91 H Respiratory 19 24 24 Rate Blood Pressure 112/63 O2 Sat by Pulse 99 98 98 Oximetry 07/20/17 07/20/17 07/20/17 18:30 18:40 18:50 Temperature Pulse Rate 89 96 H 91 H Respiratory 23 21 25 H Rate Blood Pressure O2 Sat by Pulse 98 99 98 Oximetry 07/20/17 07/20/17 07/20/17 19:00 19:10 19:16 Temperature Pulse Rate 95 H 92 H 96 H Respiratory 22 24 24 Rate Blood Pressure 122/68 O2 Sat by Pulse 98 98 98 Oximetry 07/20/17 07/20/17 07/20/17 19:20 19:30 20:00 Temperature 98.6 F Pulse Rate 93 H 106 H 120 H Respiratory 24 18 33 H Rate Blood Pressure O2 Sat by Pulse 98 99 100 Oximetry 07/20/17 07/20/17 07/20/17 20:16 21:16 22:00 Temperature Pulse Rate 101 H 97 H 83 Respiratory 25 H 27 H 23 Rate Blood Pressure 119/67 116/69 O2 Sat by Pulse 99 99 99 Oximetry 07/20/17 07/20/17 07/20/17 22:16 23:00 23:16 Temperature Pulse Rate 95 H 87 89 Respiratory 22 23 23 Rate Blood Pressure 115/67 120/67 O2 Sat by Pulse 99 99 99 Oximetry 07/21/17 07/21/17 07/21/17 00:00 00:16 01:00 Temperature 98.4 F Pulse Rate 80 85 86 Respiratory 19 25 H 16 Rate Blood Pressure 136/64 O2 Sat by Pulse 99 99 100 Oximetry 07/21/17 07/21/17 07/21/17 01:16 02:00 02:17 Temperature Pulse Rate 84 78 Respiratory 24 24 Rate Blood Pressure 115/71 117/60 O2 Sat by Pulse 100 100 Oximetry 07/21/17 07/21/17 07/21/17 03:00 03:16 04:00 Temperature 98 F Pulse Rate 78 88 Respiratory 26 H 20 Rate Blood Pressure 133/74 O2 Sat by Pulse 99 100 Oximetry 07/21/17 07/21/17 07/21/17 04:16 05:00 05:16 Temperature Pulse Rate 90 98 H 77 Respiratory 21 19 23 Rate Blood Pressure 125/72 120/69 O2 Sat by Pulse 100 100 100 Oximetry 07/21/17 07/21/17 06:16 07:17 Temperature Pulse Rate 77 84 Respiratory 20 15 Rate Blood Pressure 122/73 117/75 O2 Sat by Pulse 100 100 Oximetry
[2017-07-21] MEDS: Potassium Chloride 20 mEq ER Tab PO SCH (10:39)
[2017-07-21] MEDS: Metoprolol Succinate 12.5 mg XL PO SCH (10:41)
--- NOTE | 2017-07-21 17:48 | CP.PCM.PN ---
Subjective - Date & Time of Evaluation Date of Evaluation: 07/21/17 Time of Evaluation: 10:00 - Subjective Subjective: rx in progress cultures pending Objective - Vital Signs/Intake and Output Vital Signs (last 24 hours): Temp Pulse Resp BP Pulse Ox 99.8 F H 86 17 141/78 95 07/21/17 16:00 07/21/17 16:00 07/21/17 16:00 07/21/17 16:00 07/21/17 16:00 Intake and Output: 07/21/17 07/21/17 06:59 18:59 Intake Total 1200 1120 Output Total 2100 60 Balance -900 1060 - Medications Medications: Current Medications Docusate Sodium (Colace) 100 mg PO TID [facility] Last Admin: 07/21/17 14:00 Dose: 100 mg Lactated Ringer's (Lactated Ringer's) 1,000 mls @ 100 mls/hr IV .Q10H [facility] Last Admin: 07/21/17 15:53 Dose: 100 mls/hr Meropenem 1 gm/ Sodium (Chloride) 100 mls @ 100 mls/hr IVPB Q8H [facility] Last Admin: 07/21/17 16:26 Dose: 100 mls/hr Metoprolol Succinate (Toprol Xl) 12.5 mg PO DAILY [facility] Last Admin: 07/21/17 10:41 Dose: 12.5 mg Oxycodone/Acetaminophen (Percocet 5/325 Mg Tab) 1 tab PO Q4H PRN PRN Reason: pain Stop: 07/21/17 18:41 Last Admin: 07/19/17 11:17 Dose: 1 tab Pantoprazole Sodium (Protonix Inj) 40 mg IVP DAILY [facility] Last Admin: 07/21/17 10:39 Dose: 40 mg Potassium Chloride (K-Dur 20 Meq Er Tab) 20 meq PO DAILY [facility] Last Admin: 07/21/17 10:39 Dose: 20 meq Prednisolone Acetate (Pred Forte 1% Opht Susp) 1 ml OU 0900,1400,2100 [facility] Last Admin: 07/21/17 14:00 Dose: 1 drop Rosuvastatin Calcium (Crestor) 5 mg PO HS [facility] Last Admin: 07/20/17 21:52 Dose: 5 mg Tamsulosin HCl (Flomax) 0.4 mg PO DAILY [facility] Last Admin: 07/21/17 10:42 Dose: 0.4 mg Tobramycin Sulfate (Tobrex 0.3% Ophth Soln) 1 drop OU Q12H [facility] Last Admin: 07/21/17 10:00 Dose: 1 drop - Labs Labs: 07/21/17 06:30 07/21/17 06:30 PT 11.1 SECONDS (9.7-12.2) 07/20/17 07:11 INR 1.0 07/20/17 07:11 APTT 29 SECONDS (21-34) 07/20/17 07:11 - Constitutional Appears: Non-toxic, Chronically Ill - Head Exam Head Exam: NORMOCEPHALIC - Eye Exam Eye Exam: PERRL - ENT Exam ENT Exam: Mucous Membranes Dry - Neck Exam Neck Exam: absent: Lymphadenopathy - Respiratory Exam Respiratory Exam: Decreased Breath Sounds - Cardiovascular Exam Cardiovascular Exam: REGULAR RHYTHM - GI/Abdominal Exam GI & Abdominal Exam: Distended Assessment and Plan (1) Urinary retention Status: Acute (2) Acute blood loss anemia Status: Acute (3) BPH (benign prostatic hyperplasia) Status: Acute (4) Complication, suprapubic catheter obstruction Status: Acute (5) Leblanc catheter problem Status: Acute (6) Hematuria Status: Acute (7) Suprapubic catheter Status: Acute (8) Urethral stricture Status: Acute
[2017-07-21] MEDS: Hydrocortisone 2.5% Rectal Cream(30 gm) PR SCH (19:44)
--- NOTE | 2017-07-21 22:26 | CP.PCM.PN ---
Subjective - Date & Time of Evaluation Date of Evaluation: 07/21/17 Time of Evaluation: 09:50 - Subjective Subjective: no chest pain no sob no fever Objective - Vital Signs/Intake and Output Vital Signs (last 24 hours): Temp Pulse Resp BP Pulse Ox 99.8 F H 86 17 141/78 95 07/21/17 16:00 07/21/17 16:00 07/21/17 16:00 07/21/17 16:00 07/21/17 16:00 Intake and Output: 07/21/17 07/22/17 18:59 06:59 Intake Total 1320 Output Total 1785 Balance -465 - Medications Medications: Current Medications Docusate Sodium (Colace) 100 mg PO TID [facility] Last Admin: 07/21/17 18:00 Dose: 100 mg Hydrocortisone (Anusol-Hc) 0 gm ID BID [facility] Last Admin: 07/21/17 19:44 Dose: 1 applic Lactated Ringer's (Lactated Ringer's) 1,000 mls @ 100 mls/hr IV .Q10H [facility] Last Admin: 07/21/17 15:53 Dose: 100 mls/hr Meropenem 1 gm/ Sodium (Chloride) 100 mls @ 100 mls/hr IVPB Q8H [facility] Last Admin: 07/21/17 16:26 Dose: 100 mls/hr Metoprolol Succinate (Toprol Xl) 12.5 mg PO DAILY [facility] Last Admin: 07/21/17 10:41 Dose: 12.5 mg Pantoprazole Sodium (Protonix Inj) 40 mg IVP DAILY [facility] Last Admin: 07/21/17 10:39 Dose: 40 mg Potassium Chloride (K-Dur 20 Meq Er Tab) 20 meq PO DAILY [facility] Last Admin: 07/21/17 10:39 Dose: 20 meq Prednisolone Acetate (Pred Forte 1% Opht Susp) 1 ml OU 0900,1400,2100 [facility] Last Admin: 07/21/17 21:24 Dose: 1 drop Rosuvastatin Calcium (Crestor) 5 mg PO HS [facility] Last Admin: 07/21/17 21:21 Dose: 5 mg Tamsulosin HCl (Flomax) 0.4 mg PO DAILY [facility] Last Admin: 07/21/17 10:42 Dose: 0.4 mg Tobramycin Sulfate (Tobrex 0.3% Ophth Soln) 1 drop OU Q12H [facility] Last Admin: 07/21/17 21:22 Dose: 1 drop - Labs Labs: 07/21/17 06:30 07/21/17 06:30 PT 11.1 SECONDS (9.7-12.2) 07/20/17 07:11 INR 1.0 07/20/17 07:11 APTT 29 SECONDS (21-34) 07/20/17 07:11 - Constitutional Appears: Non-toxic - Eye Exam Eye Exam: absent: Scleral icterus - Neck Exam Neck Exam: Full ROM - Respiratory Exam Respiratory Exam: Decreased Breath Sounds - Cardiovascular Exam Cardiovascular Exam: REGULAR RHYTHM - GI/Abdominal Exam GI & Abdominal Exam: Soft - Extremities Exam Extremities Exam: absent: Calf Tenderness, Pedal Edema - Neurological Exam Neurological Exam: Alert, Oriented x3 Assessment and Plan - Assessment and Plan (Free Text) Assessment: CAD T2dm HTN s/p cystoscopy Plan: Cont meds Cont ABtx
[2017-07-22] MEDS: Meropenem 1 GM in Sodium Chloride 0.9% 100 ML IVPB SCH ×2 (00:15→08:28)
[2017-07-22] MEDS: Lactated Ringer's 1,000 ML IV SCH ×5 (00:16→19:52)
[2017-07-22 01:23] VITALS: RESP 20
--- NOTE | 2017-07-22 01:54 | PN ---
DATE: 07/21/2017 DAILY PROGRESS NOTE The patient is in the intensive care unit. See the previously dictated H and P from 07/18/2017. See the operative note from 07/18/2017. See the operative note from 07/19/2017 and the progress notes. The patient is a very pleasant gentleman. He is currently in the intensive care unit. He is status post internal optical urethrotomy. With noted difficulties with postop sepsis. White count is now down to 14. This morning, this is pending still. Creatinine noted. Multiple consultations noted. The patient is awake, alert. He is actually sitting in a chair already. Eating breakfast. His main complaint is about his bowel movements which he has been complaining now for a while. We are going to get a GI consult now when he is more stabilized. The patient has a Leblanc catheter and suprapubic catheter draining well. The urine output volumes are all noted. few fluid boluses. (As one I mentioned for completeness, again the patient had a difficulty, he has a thick like cement urethral stricture and during that procedure, we broke three knives. One blade is still within the patient. I provided explanation to the patient. See the plans listed below, but he is aware of this at present. Currently, he is sitting up, eating, doing well. Vital signs were stable. In fact, the medical team has discharged him to the floor, see the plans listed below. The review of systems, all as listed, again his major complaint is his constipation for which we are going to a GI consult. He also mentioned that he would like to get an Ophthalmology consult to Dr. Vicente about that. 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 I told him I do not know exactly what he is going to do. I told to him directly that I have noted there is a hole or not hole, but he thinks he might have heard something. He would like therefore maybe to consider getting Ophthalmology consult, Dr. Vicente further about this. Results on the case. Especially because he is getting his care from another Kitchen Clerk and he is not currently having any pain or discomfort. PHYSICAL EXAMINATION: GENERAL: In no apparent distress. VITAL SIGNS: Noted. ABDOMEN: Soft. The abdominal wall edema, penile edema and scrotal edema are remarkably better. Leblanc catheter is draining clear. Suprapubic is draining clear. He did not wish palpation. I do not really feel the blade at this point. Labs noted in the chart. DIAGNOSES: Urinary retention, voiding dysfunction, gross hematuria, urethral stricture disease. A very pleasant gentleman with postop care under the situation. He is currently doing well. We are moving him out of the ICU. From Urology standpoint, again as mentioned above, the patient is aware that there is a knife blade, just a tip of the handle, there are pictures in the chart. Actually, I tried showing the patient the pictures with the handle, but for now we are doing nothing as he has no consequence. We will just follow him. Maybe we will get a followup x-ray when we are doing a next cystoscope anyway where we are trying to dilate the urethra to see if we can once again got a way to grasp it out. If the patient is able to, I can try to get him to go to another surgeon for urethroplasty and maybe they would have different plan of operation. But for now, the patient remained stable. PLAN: 1. Move the patient to the floor. 2. We are going to get a GI consult. 3. The patient is being followed by other consultants. 4. Consider Ophthalmology. 5. We will discuss plan with Dr. Vicente. Salvador Tristan MD
[2017-07-22] MEDS: Tobramycin 0.3% OPHT SOLN OU SCH ×2 (08:33→21:39)
[2017-07-22] MEDS: PrednisoLONE 1% Opht Susp(5 ml) OU SCH ×3 (08:43→21:39)
[2017-07-22] MEDS: Potassium Chloride 20 mEq ER Tab PO SCH (09:03)
--- NOTE | 2017-07-22 09:05 | PCM.URO ---
Urology Progress Note - Objective Lab Studies: Reviewed (all notes dictated pt overall doing well) Intake & Output: Intake & Output 07/21/17 07/22/17 07/22/17 18:59 06:59 18:59 Intake Total 1320 1840 Output Total 1781939 Balance -465 -100 Weight 158 lb Intake: Intake, IV Amount 1200 1300 Left Hand 700 Left Wrist 500 1300 right hand 0 Oral 120 540 Output: Urine 1784 1939 Suprapubic 1300 Urethral (Leblanc) 178 640 Stool 0 Other: # Bowel Movements 0 Vital Signs: Vital Signs - 24 hr 07/21/17 07/21/17 07/21/17 09:53 10:00 10:16 Temperature Pulse Rate 93 H 88 Respiratory 20 18 Rate Blood Pressure 107/67 107/67 O2 Sat by Pulse 98 Oximetry 07/21/17 07/21/17 07/21/17 10:47 11:00 11:16 Temperature Pulse Rate 91 H 90 91 H Respiratory 24 27 H 27 H Rate Blood Pressure 110/68 110/68 O2 Sat by Pulse 100 Oximetry 07/21/17 07/21/17 07/21/17 12:00 13:00 13:16 Temperature 99 F Pulse Rate 77 72 80 Respiratory 18 18 23 Rate Blood Pressure 110/68 116/63 O2 Sat by Pulse 100 100 Oximetry 07/21/17 07/21/17 07/22/17 16:00 20:00 00:00 Temperature 99.8 F H 98.9 F 98.8 F Pulse Rate 86 93 H 91 H Respiratory 17 18 20 Rate Blood Pressure 141/78 111/88 118/76 O2 Sat by Pulse 95 98 97 Oximetry 07/22/17 07/22/17 07/22/17 01:00 06:00 09:02 Temperature 99 F 98.4 F 97.7 F Pulse Rate 88 76 Respiratory 20 20 Rate Blood Pressure 152/77 H 139/77 O2 Sat by Pulse 99 95 Oximetry
[2017-07-22] MEDS: Hydrocortisone 2.5% Rectal Cream(30 gm) PR SCH ×2 (09:16→19:44)
[2017-07-22] MEDS: Metoprolol Succinate 12.5 mg XL PO SCH (09:45)
--- NOTE | 2017-07-22 13:18 | CP.PCM.CON ---
History of Present Illness - History of Present Illness History of Present Illness: CC: Constipation Asked by Dr Tristan to evaluate patient with extensive urologic history, admitted with Bladder infection and sepsis for GI distress. Patient notes suprapubic pain from suprapubic catheter when having BMs and therefore takes Colace TID for relief. He denies change in bowel habits or overt signs of GI bleeding. EGD and Colonoscopy were performed by Dr Boles in 2016 without any major findings on endoscopic exam or pathology. Review of Systems - Constitutional Constitutional: Chills - Cardiovascular Cardiovascular: absent: Chest Pain - Respiratory Respiratory: absent: Dyspnea - Gastrointestinal Gastrointestinal: Abdominal Pain, Constipation. absent: Change in Bowel Habits , Hematochezia - Genitourinary Genitourinary: Difficulty Urinating, Dysuria, Hematuria Past Patient History - Infectious Disease Hx of Infectious Diseases: None - Past Medical History & Family History Past Medical History?: Yes - Past Social History Smoking Status: Never Smoked - CARDIAC Hx Cardiac Disorders: Yes Hx Hypercholesterolemia: Yes Hx Hypertension: Yes - PULMONARY Hx Respiratory Disorders: No - NEUROLOGICAL Hx Neurological Disorder: No - HEENT Hx HEENT Problems: Yes Hx Epistaxis: Yes - RENAL Hx Chronic Kidney Disease: No - ENDOCRINE/METABOLIC Hx Endocrine Disorders: No - HEMATOLOGICAL/ONCOLOGICAL Hx Blood Disorders: Yes Hx Anemia: Yes - INTEGUMENTARY Hx Dermatological Problems: No - MUSCULOSKELETAL/RHEUMATOLOGICAL Hx Musculoskeletal Disorders: No Hx Falls: No - GASTROINTESTINAL Hx Gastrointestinal Disorders: Yes Hx Hemorrhoids: Yes - GENITOURINARY/GYNECOLOGICAL Hx Genitourinary Disorders: Yes - PSYCHIATRIC Hx Psychophysiologic Disorder: No Hx Substance Use: No - SURGICAL HISTORY Hx Surgeries: Yes Hx Coronary Artery Bypass Graft: Yes (2012 X3) - ANESTHESIA Hx Anesthesia: Yes Hx Anesthesia Reactions: No Hx Malignant Hyperthermia: No Meds Allergies/Adverse Reactions: Allergies Allergy/AdvReac Type Severity Reaction Status Date / Time hydromorphone [From Dilaudid] AdvReac ITCHING Verified 07/20/17 08:41 - Medications Medications: Current Medications Docusate Sodium (Colace) 100 mg PO TIDCC [facility] Last Admin: 07/22/17 12:54 Dose: 100 mg Hydrocortisone (Anusol-Hc) 0 gm SD BID [facility] Last Admin: 07/22/17 09:16 Dose: Not Given Lactated Ringer's (Lactated Ringer's) 1,000 mls @ 100 mls/hr IV .Q10H [facility] Last Admin: 07/22/17 09:14 Dose: Not Given Linezolid (Zyvox 600mg/300ml D5w) 600 mg in 300 mls @ 200 mls/hr IVPB Q12 [facility] Metoprolol Succinate (Toprol Xl) 12.5 mg PO DAILY [facility] Last Admin: 07/22/17 09:45 Dose: 12.5 mg Pantoprazole Sodium (Protonix Inj) 40 mg IVP DAILY [facility] Last Admin: 07/22/17 09:02 Dose: 40 mg Potassium Chloride (K-Dur 20 Meq Er Tab) 20 meq PO DAILY [facility] Last Admin: 07/22/17 09:03 Dose: 20 meq Prednisolone Acetate (Pred Forte 1% Opht Susp) 1 ml OU 0900,1400,2100 [facility] Last Admin: 07/22/17 08:43 Dose: 1 drop Rosuvastatin Calcium (Crestor) 5 mg PO HS [facility] Last Admin: 07/21/17 21:21 Dose: 5 mg Tamsulosin HCl (Flomax) 0.4 mg PO DAILY [facility] Last Admin: 07/22/17 09:03 Dose: 0.4 mg Tobramycin Sulfate (Tobrex 0.3% Ophth Soln) 1 drop OU Q12H [facility] Last Admin: 07/22/17 08:33 Dose: 1 drop Physical Exam - Constitutional Appears: Chronically Ill - Eye Exam Eye Exam: absent: Scleral icterus - Respiratory Exam Respiratory Exam: NORMAL BREATHING PATTERN - Cardiovascular Exam Cardiovascular Exam: REGULAR RHYTHM Additional comments: Sternotomy scar - GI/Abdominal Exam GI & Abdominal Exam: Soft. absent: Tenderness Additional comments: Suprapubic catheter present Results - Vital Signs Recent Vital Signs: Last Vital Signs Temp 97.7 F 07/22/17 09:02 Pulse 76 07/22/17 09:02 Resp 20 07/22/17 09:02 BP 139/77 07/22/17 09:02 Pulse Ox 95 07/22/17 09:02 - Labs Result Diagrams: 07/21/17 06:30 07/21/17 06:30 Assessment & Plan (1) Constipation Assessment and Plan: Continue Colace halfway No further GI intervention planned Status: Acute (2) Suprapubic catheter Assessment and Plan: managed by dr Tristan Status: Acute (3) Urethral stricture Assessment and Plan: Managed by Dr Tristan Status: Acute - Date & Time Date: 07/22/17 Time: 13:22
[2017-07-22] MEDS: Linezolid 600 mg in D5W 300 ml 600 MG/300 ML BAG IVPB SCH ×2 (14:03→21:40)
--- NOTE | 2017-07-22 18:57 | CP.PCM.PN ---
Subjective - Date & Time of Evaluation Date of Evaluation: 07/22/17 Time of Evaluation: 09:00 - Subjective Subjective: VRE urine voiding ok c/o pain dr johnson on board Objective - Vital Signs/Intake and Output Vital Signs (last 24 hours): Temp Pulse Resp BP Pulse Ox 97.7 F 76 20 139/77 95 07/22/17 09:02 07/22/17 09:02 07/22/17 09:02 07/22/17 09:02 07/22/17 09:02 Intake and Output: 07/22/17 07/22/17 06:59 18:59 Intake Total 1840 1300 Output Total 1940 1500 Balance -100 -200 - Medications Medications: Current Medications Docusate Sodium (Colace) 100 mg PO TIDCC [facility] Last Admin: 07/22/17 17:50 Dose: 100 mg Hydrocortisone (Anusol-Hc) 0 gm MT BID [facility] Last Admin: 07/22/17 09:16 Dose: Not Given Lactated Ringer's (Lactated Ringer's) 1,000 mls @ 100 mls/hr IV .Q10H [facility] Last Admin: 07/22/17 17:51 Dose: 100 mls/hr Linezolid (Zyvox 600mg/300ml D5w) 600 mg in 300 mls @ 200 mls/hr IVPB Q12 [facility] Last Admin: 07/22/17 14:03 Dose: 200 mls/hr Metoprolol Succinate (Toprol Xl) 12.5 mg PO DAILY [facility] Last Admin: 07/22/17 09:45 Dose: 12.5 mg Pantoprazole Sodium (Protonix Inj) 40 mg IVP DAILY [facility] Last Admin: 07/22/17 09:02 Dose: 40 mg Potassium Chloride (K-Dur 20 Meq Er Tab) 20 meq PO DAILY [facility] Last Admin: 07/22/17 09:03 Dose: 20 meq Prednisolone Acetate (Pred Forte 1% Opht Susp) 1 ml OU 0900,1400,2100 [facility] Last Admin: 07/22/17 14:04 Dose: 1 drop Rosuvastatin Calcium (Crestor) 5 mg PO HS [facility] Last Admin: 07/21/17 21:21 Dose: 5 mg Tamsulosin HCl (Flomax) 0.4 mg PO DAILY [facility] Last Admin: 07/22/17 09:03 Dose: 0.4 mg Tobramycin Sulfate (Tobrex 0.3% Ophth Soln) 1 drop OU Q12H [facility] Last Admin: 07/22/17 08:33 Dose: 1 drop - Labs Labs: 07/21/17 06:30 07/21/17 06:30 PT 11.1 SECONDS (9.7-12.2) 07/20/17 07:11 INR 1.0 07/20/17 07:11 APTT 29 SECONDS (21-34) 07/20/17 07:11 - Constitutional Appears: Non-toxic, Chronically Ill - Head Exam Head Exam: NORMOCEPHALIC - Eye Exam Eye Exam: PERRL - ENT Exam ENT Exam: Mucous Membranes Dry - Neck Exam Neck Exam: absent: Lymphadenopathy - Respiratory Exam Respiratory Exam: Decreased Breath Sounds - Cardiovascular Exam Cardiovascular Exam: REGULAR RHYTHM - GI/Abdominal Exam GI & Abdominal Exam: Distended - Rectal Exam Rectal Exam: Deferred - Exam Exam: NORMAL INSPECTION Assessment and Plan (1) Urinary retention Status: Acute (2) Acute blood loss anemia Status: Acute (3) BPH (benign prostatic hyperplasia) Status: Acute (4) Complication, suprapubic catheter obstruction Status: Acute (5) Leblanc catheter problem Status: Acute (6) Hematuria Status: Acute (7) Suprapubic catheter Status: Acute (8) Urethral stricture Status: Acute
[2017-07-23] MEDS: Hydrocortisone 2.5% Rectal Cream(30 gm) PR SCH ×2 (09:18→17:53)
[2017-07-23] MEDS: PrednisoLONE 1% Opht Susp(5 ml) OU SCH ×3 (09:18→21:54)
[2017-07-23] MEDS: Metoprolol Succinate 12.5 mg XL PO SCH (09:19)
[2017-07-23] MEDS: Tobramycin 0.3% OPHT SOLN OU SCH ×2 (09:19→21:52)
[2017-07-23] MEDS: Potassium Chloride 20 mEq ER Tab PO SCH (09:19)
[2017-07-23] MEDS: Linezolid 600 mg in D5W 300 ml 600 MG/300 ML BAG IVPB SCH ×2 (09:23→21:59)
--- NOTE | 2017-07-23 12:25 | CARD ---
APPROVED REPORT EKG Measurement Heart [id number] OR 160P57 [id number] <Conclusion> Normal sinus rhythm Prolonged QT Abnormal ECG
[2017-07-24] MEDS: PrednisoLONE 1% Opht Susp(5 ml) OU SCH ×3 (10:00→20:40)
[2017-07-24] MEDS: Tobramycin 0.3% OPHT SOLN OU SCH ×2 (10:00→20:41)
[2017-07-24] MEDS: Potassium Chloride 20 mEq ER Tab PO SCH (11:15)
[2017-07-24] MEDS: Metoprolol Succinate 12.5 mg XL PO SCH (11:16)
[2017-07-24] MEDS: Linezolid 600 mg in D5W 300 ml 600 MG/300 ML BAG IVPB SCH ×2 (11:17→22:38)
[2017-07-24] MEDS: Hydrocortisone 2.5% Rectal Cream(30 gm) PR SCH ×2 (11:19→18:31)
--- NOTE | 2017-07-24 15:13 | CP.PCM.PN ---
Subjective - Date & Time of Evaluation Date of Evaluation: 07/24/17 Time of Evaluation: 08:00 - Subjective Subjective: no fever wbc trending down + VRE cont rx Objective - Vital Signs/Intake and Output Vital Signs (last 24 hours): Temp Pulse Resp BP Pulse Ox 98.6 F 88 20 144/94 H 97 07/24/17 08:04 07/24/17 08:04 07/24/17 08:04 07/24/17 08:04 07/24/17 08:04 Intake and Output: 07/24/17 07/24/17 06:59 18:59 Intake Total 1100 120 Output Total 1300 1050 Balance -200 -930 - Medications Medications: Current Medications Docusate Sodium (Colace) 100 mg PO TIDCC [facility] Last Admin: 07/24/17 14:37 Dose: Not Given Hydrocortisone (Anusol-Hc) 0 gm [place] BID [facility] Last Admin: 07/24/17 11:19 Dose: 1 applic Linezolid (Zyvox 600mg/300ml D5w) 600 mg in 300 mls @ 200 mls/hr IVPB Q12 [facility] Last Admin: 07/24/17 11:17 Dose: 200 mls/hr Metoprolol Succinate (Toprol Xl) 12.5 mg PO DAILY [facility] Last Admin: 07/24/17 11:16 Dose: 12.5 mg Pantoprazole Sodium (Protonix Inj) 40 mg IVP DAILY [facility] Last Admin: 07/24/17 11:15 Dose: 40 mg Potassium Chloride (K-Dur 20 Meq Er Tab) 20 meq PO DAILY [facility] Last Admin: 07/24/17 11:15 Dose: 20 meq Prednisolone Acetate (Pred Forte 1% Opht Susp) 1 ml OU 0900,1400,2100 [facility] Last Admin: 07/24/17 14:38 Dose: 1 drop Rosuvastatin Calcium (Crestor) 5 mg PO HS [facility] Last Admin: 07/23/17 21:59 Dose: 5 mg Tamsulosin HCl (Flomax) 0.4 mg PO DAILY [facility] Last Admin: 07/24/17 11:16 Dose: 0.4 mg Tobramycin Sulfate (Tobrex 0.3% Ophth Soln) 1 drop OU Q12H [facility] Last Admin: 07/24/17 10:00 Dose: 1 drop Zolpidem Tartrate (Ambien) 5 mg PO HS PRN PRN Reason: Insomnia Last Admin: 07/24/17 01:04 Dose: 5 mg - Labs Labs: 07/21/17 06:30 07/21/17 06:30 PT 11.1 SECONDS (9.7-12.2) 07/20/17 07:11 INR 1.0 07/20/17 07:11 APTT 29 SECONDS (21-34) 07/20/17 07:11 - Constitutional Appears: Non-toxic, Chronically Ill - Head Exam Head Exam: NORMOCEPHALIC - Eye Exam Eye Exam: PERRL - ENT Exam ENT Exam: Mucous Membranes Dry - Neck Exam Neck Exam: absent: Lymphadenopathy - Respiratory Exam Respiratory Exam: Decreased Breath Sounds - Cardiovascular Exam Cardiovascular Exam: REGULAR RHYTHM - GI/Abdominal Exam GI & Abdominal Exam: Distended - Rectal Exam Rectal Exam: Deferred - Exam Exam: NORMAL INSPECTION - Extremities Exam Extremities Exam: absent: Pedal Edema - Back Exam Back Exam: absent: CVA tenderness (L), CVA tenderness (R) - Neurological Exam Neurological Exam: Alert, Awake, Oriented x3 Assessment and Plan (1) Urinary retention Status: Acute (2) Acute blood loss anemia Status: Acute (3) BPH (benign prostatic hyperplasia) Status: Acute (4) Complication, suprapubic catheter obstruction Status: Acute (5) Leblanc catheter problem Status: Acute (6) Hematuria Status: Acute (7) Suprapubic catheter Status: Acute (8) Urethral stricture Status: Acute
[2017-07-24] MEDS ORDERED: Acetaminophen-Codeine 300/30 mg Tab PO PRN (18:39)
[2017-07-25 07:03] LABS: ALBUMIN 3.2 g/dL (3.5-5.0); ALT/SGPT 28 U/L (21-72); AST/SGOT 21 U/L (17-59); BLOOD UREA NITROGEN 14 mg/dL (9-20); CALCIUM 8.7 mg/dl (8.6-10.4); GFR AFRICAN-AMERICAN > 60; GFR NON-AFRICAN AMERICAN > 60
[2017-07-25 07:26] LABS: BASO % 0.5 % (0.0-2.0); EOS # 0.5 K/uL (0.0-0.7); EOS % 5.5 % (0.0-4.0); HEMOGLOBIN 10.1 g/dL (12.0-18.0); LYMPH # 1.6 K/uL (1.0-4.3); LYMPH % 18.6 % (20.0-40.0); MEAN CELL VOLUME 88.1 fL (80.0-94.0); MEAN CORPUSCULAR HEMOGLOBIN 30.1 pg (27.0-31.0); MEAN CORPUSCULAR HGB CONC 34.2 g/dL (33.0-37.0); MEAN PLATELET VOLUME 7.7 fL (7.2-11.7); MONO % 11.4 % (0.0-10.0); NEUT # 5.7 K/uL (1.8-7.0); RBC 3.35 Mil/uL (4.40-5.90); RED CELL DISTRIBUTION WIDTH 14.4 % (11.5-14.5); WHITE BLOOD COUNT 8.9 K/uL (4.8-10.8)
[2017-07-25] MEDS: Tobramycin 0.3% OPHT SOLN OU SCH ×2 (10:00→21:42)
[2017-07-25] MEDS: PrednisoLONE 1% Opht Susp(5 ml) OU SCH ×3 (10:00→21:43)
[2017-07-25] MEDS: Hydrocortisone 2.5% Rectal Cream(30 gm) PR SCH ×2 (11:00→17:37)
[2017-07-25] MEDS: Linezolid 600 mg in D5W 300 ml 600 MG/300 ML BAG IVPB SCH ×2 (11:13→22:38)
[2017-07-25] MEDS: Metoprolol Succinate 12.5 mg XL PO SCH (11:14)
[2017-07-25] MEDS: Potassium Chloride 20 mEq ER Tab PO SCH (11:14)
--- NOTE | 2017-07-25 11:15 | CP.PCM.PN ---
Subjective - Date & Time of Evaluation Date of Evaluation: 07/25/17 Time of Evaluation: 08:00 - Subjective Subjective: no temp today WBC trending down Objective - Vital Signs/Intake and Output Vital Signs (last 24 hours): Temp Pulse Resp BP Pulse Ox 98.4 F 94 H 20 130/82 95 07/25/17 08:40 07/25/17 08:40 07/25/17 08:40 07/25/17 08:40 07/25/17 08:40 Intake and Output: 07/25/17 07/25/17 06:59 18:59 Intake Total 1020 Output Total 1999 Balance -980 - Medications Medications: Current Medications Acetaminophen/Codeine Phosphate (Tylenol/Codeine 300 Mg/30 Mg) 1 ea PO Q4 PRN PRN Reason: Pain, moderate (4-7) Docusate Sodium (Colace) 100 mg PO TIDCC [facility] Last Admin: 07/25/17 08:43 Dose: 100 mg Hydrocortisone (Anusol-Hc) 0 gm [place] BID [facility] Last Admin: 07/24/17 18:31 Dose: 1 applic Linezolid (Zyvox 600mg/300ml D5w) 600 mg in 300 mls @ 200 mls/hr IVPB Q12 [facility] Last Admin: 07/24/17 22:38 Dose: 200 mls/hr Metoprolol Succinate (Toprol Xl) 12.5 mg PO DAILY [facility] Last Admin: 07/24/17 11:16 Dose: 12.5 mg Pantoprazole Sodium (Protonix Inj) 40 mg IVP DAILY [facility] Last Admin: 07/24/17 11:15 Dose: 40 mg Potassium Chloride (K-Dur 20 Meq Er Tab) 20 meq PO DAILY [facility] Last Admin: 07/24/17 11:15 Dose: 20 meq Prednisolone Acetate (Pred Forte 1% Opht Susp) 1 ml OU 0900,1400,2100 [facility] Last Admin: 07/24/17 20:40 Dose: 1 drop Rosuvastatin Calcium (Crestor) 5 mg PO HS [facility] Last Admin: 07/24/17 22:39 Dose: 5 mg Tamsulosin HCl (Flomax) 0.4 mg PO DAILY [facility] Last Admin: 07/24/17 11:16 Dose: 0.4 mg Tobramycin Sulfate (Tobrex 0.3% Ophth Soln) 1 drop OU Q12H [facility] Last Admin: 07/24/17 20:41 Dose: 1 drop Zolpidem Tartrate (Ambien) 5 mg PO HS PRN PRN Reason: Insomnia Last Admin: 07/25/17 00:50 Dose: 5 mg - Labs Labs: 07/25/17 06:20 07/25/17 06:20 PT 11.1 SECONDS (9.7-12.2) 07/20/17 07:11 INR 1.0 07/20/17 07:11 APTT 29 SECONDS (21-34) 07/20/17 07:11 - Constitutional Appears: Non-toxic, Chronically Ill - Head Exam Head Exam: NORMOCEPHALIC - Eye Exam Eye Exam: PERRL. absent: Scleral icterus - ENT Exam ENT Exam: Mucous Membranes Dry - Neck Exam Neck Exam: absent: Lymphadenopathy - Respiratory Exam Respiratory Exam: Decreased Breath Sounds, Clear to Ausculation Bilateral - Cardiovascular Exam Cardiovascular Exam: REGULAR RHYTHM, +S1, +S2 - GI/Abdominal Exam GI & Abdominal Exam: Distended, Soft - Rectal Exam Rectal Exam: Deferred Assessment and Plan (1) Urinary retention Status: Acute (2) Acute blood loss anemia Status: Acute (3) BPH (benign prostatic hyperplasia) Status: Acute (4) Complication, suprapubic catheter obstruction Status: Acute (5) Leblanc catheter problem Status: Acute (6) Hematuria Status: Acute (7) Suprapubic catheter Status: Acute (8) Urethral stricture Status: Acute
[2017-07-26 07:49] VITALS: PULSE 73; O2SAT 100
[2017-07-26] MEDS: PrednisoLONE 1% Opht Susp(5 ml) OU SCH ×3 (08:33→21:04)
[2017-07-26] MEDS: Tobramycin 0.3% OPHT SOLN OU SCH ×2 (08:52→21:05)
[2017-07-26] MEDS: Hydrocortisone 2.5% Rectal Cream(30 gm) PR SCH ×3 (08:53→18:35)
[2017-07-26] MEDS: Linezolid 600 mg in D5W 300 ml 600 MG/300 ML BAG IVPB SCH (12:31)
[2017-07-26] MEDS: Metoprolol Succinate 12.5 mg XL PO SCH (12:32)
[2017-07-26] MEDS: Potassium Chloride 20 mEq ER Tab PO SCH (12:32)
[2017-07-26 17:23] VITALS: BP 150/84; TEMP 98.2
--- NOTE | 2017-08-15 10:51 | DS ---
REASON FOR ADMISSION: Urinary retention, voiding dysfunction, catheter failure, urethral stricture, hematuria. At the time of discharge, the patient has a bladder drainage and catheter is draining well. At the time of discharge, the patient was in stable condition. No obvious signs of any abnormalities. The Urology plans are followup with outpatient followup with a close monitoring and supervision. The patient will be followed with repeat procedures including cystoscopies. He has had multiple procedures. He has had multiple procedures. See my dictated notes for details. He had urethral dilation, urethral stricture release. Underlying all this, the patient has some kind of tremendous scarring formation problem, may be connective tissue disorder. I discussed with the patient to seek out medical consent. He has had may be 5 to 10 operations including recent eye surgery and cardiac surgery. He has scar, gigantic keloid, as he has trauma and at risk for infection and I have discussed this with him. Lot of unfortunately his insurance coverage and carrier. Also, the patient's underlying anxiety . I have encouraged the patient to seek second opinion from the Urology standpoint. He has told me he is planning to see his brother's urologist, which I have encouraged him, said that is a great idea. I have encouraged him more than that is to see somebody who is a little bit more expert than an average general urologist. Discussed at length, evaluated the patient, and I spent quite a lot of time with the patient and I reviewed very carefully the underlying specific abnormal problems with the care he received and yet he is still left with his tremendous stricture disease. At the time of discharge, stable to home. Plan is for outpatient followup with me in the office and back here in the hospital, but my only recommendation is getting other medical opinions regarding possible connective tissue disorder and also other maybe Infectious Disease consultation and also second opinion with Urology. I discussed with him the idea of going to a reconstruction expert. I have actually given him the name of somebody . The patient have a lot of issues with travel and transportation. Salvador Tristan MD
== END 2017-07-26 23:38 | disposition home or self-care (01) | DRG 854 ==
LOC: C.ER 11:09 → C.SDS 14:44 → C.6T 19:33 → C.9I 07-19 21:55 → C.3T 07-21 23:49
PROVIDERS: ADMIT Urology; ATTEND Urology
PROC: 0TND8ZZ Release Urethra, Via Natural or Artificial Opening Endoscopic (ICD-10-PCS; 2017-07-18)
PROC: 0T9B30Z Drainage of Bladder with Drainage Device, Percutaneous Approach (ICD-10-PCS; 2017-07-18)
PROC: 0T7D8DZ Dilation of Urethra with Intraluminal Device, Via Natural or Artificial Opening Endoscopic (ICD-10-PCS; 2017-07-18)
PROC: 0T7D8ZZ Dilation of Urethra, Via Natural or Artificial Opening Endoscopic (ICD-10-PCS; 2017-07-19)
PROC: 0TND8ZZ Release Urethra, Via Natural or Artificial Opening Endoscopic (ICD-10-PCS; principal; 2017-07-19 14:00)
DX: A41.9 Sepsis, unspecified organism (principal); N30.81 Other cystitis with hematuria; N40.1 Benign prostatic hyperplasia with lower urinary tract symptoms; N35.8 Other urethral stricture; T19.0XXA Foreign body in urethra, initial encounter; D62 Acute posthemorrhagic anemia; T83.9XXA Unspecified complication of genitourinary prosthetic device, implant and graft, initial encounter; N17.9 Acute kidney failure, unspecified; R33.8 Other retention of urine; E11.9 Type 2 diabetes mellitus without complications; L91.0 Hypertrophic scar; I10 Essential (primary) hypertension; I25.10 Atherosclerotic heart disease of native coronary artery without angina pectoris; E78.00 Pure hypercholesterolemia, unspecified; E78.5 Hyperlipidemia, unspecified; K59.00 Constipation, unspecified; Z95.1 Presence of aortocoronary bypass graft

== ENCOUNTER 2017-07-31 13:26 | Inpatient (IN) | payer MEDICARE, MEDICAID ==
[2017-07-31 13:26] VITALS: BMI 24.3
[2017-07-31] MEDS ORDERED: cefTRIAXone IV 1 gm in Dextros 50 ML IV ONE (14:31)
[2017-07-31 14:43] LABS: BASO # 0.1 K/uL (0.0-0.2); BASO % 1.1 % (0.0-2.0); EOS # 0.2 K/uL (0.0-0.7); EOS % 1.9 % (0.0-4.0); HEMOGLOBIN 9.7 g/dL (12.0-18.0); LYMPH # 0.9 K/uL (1.0-4.3); LYMPH % 9.2 % (20.0-40.0); MEAN CELL VOLUME 87.6 fL (80.0-94.0); MEAN CORPUSCULAR HEMOGLOBIN 30.4 pg (27.0-31.0); MEAN CORPUSCULAR HGB CONC 34.6 g/dL (33.0-37.0); MEAN PLATELET VOLUME 6.6 fL (7.2-11.7); MONO # 0.8 K/uL (0.0-0.8); MONO % 7.8 % (0.0-10.0); NEUT # 7.9 K/uL (1.8-7.0); RED CELL DISTRIBUTION WIDTH 13.8 % (11.5-14.5); WHITE BLOOD COUNT 9.8 K/uL (4.8-10.8)
[2017-07-31 14:47] LABS: PLATELET COUNT 430 K/uL (130-400)
[2017-07-31 14:51] LABS: INR 1.3; PROTHROMBIN TIME 14.8 SECONDS (9.7-12.2)
[2017-07-31] MEDS ORDERED: cefTRIAXone IV 1 gm in Dextros 50 ML IVPB ONE (14:56)
[2017-07-31 15:03] LABS: ALBUMIN 3.3 g/dL (3.5-5.0); ALT/SGPT 41 U/L (21-72); AST/SGOT 32 U/L (17-59); BLOOD UREA NITROGEN 14 mg/dL (9-20); CALCIUM 8.1 mg/dl (8.6-10.4); GFR AFRICAN-AMERICAN > 60; GFR NON-AFRICAN AMERICAN > 60
[2017-07-31 15:15] LABS: BANDS 2 % (0-2); EOSINOPHIL 2 % (0-4); LYMPHOCYTE 11 % (20-40); MONOCYTE 5 % (0-10); NEUTROPHIL 80 % (50-75); PLATELET ESTIMATE NORMAL (NORMAL); TOTAL CELLS COUNTED 100
--- NOTE | 2017-07-31 15:19 | RAD ---
PROCEDURE: CHEST RADIOGRAPH, 1 VIEW HISTORY: SOB COMPARISON: Comparison is made with 07/20/2017 FINDINGS: LUNGS: No evidence of new infiltrate or consolidation in the lungs PLEURA: No pneumothorax or pleural fluid seen. CARDIOVASCULAR: Normal. OSSEOUS STRUCTURES: No significant abnormalities. VISUALIZED UPPER ABDOMEN: Normal. OTHER FINDINGS: None. IMPRESSION: No active disease.
[2017-07-31 15:53] LABS: URINE BACTERIA FEW (<OCC); URINE BILIRUBIN NEGATIVE (NEGATIVE); URINE BLOOD 1+ (NEGATIVE); URINE CLARITY Hazy (Clear); URINE COLOR Yellow (YELLOW); URINE GLUCOSE (UA) NORMAL (Normal); URINE LEUKOCYTE ESTERASE 1+ Leu/uL (Negative); URINE NITRATE NEGATIVE (NEGATIVE); URINE PROTEIN 1+ mg/dL (NEGATIVE); URINE UROBILINOGEN NORMAL mg/dL (0.2-1.0)
--- NOTE | 2017-07-31 16:06 | C.PDOC ---
History Of Present Illness 62yo male, brought to ER from senior care for evaluation of scrotal irritation and suprapubic end Fraser catheters. Patient has had many prior evaluations for urinary issues and is followed up by Dr. Tristan. Patient denies fevers, chills , chest pain, shortness of breath or abdominal pain. He offers no other medical complaints. Time Seen by Provider: 07/31/17 13:30 Chief Complaint (Nursing): Male Genitourinary History Per: Patient History/Exam Limitations: no limitations Associated Symptoms: denies: Fever, Chills, Chest Pain Past Medical History Reviewed: Historical Data, Nursing Documentation, Vital Signs Vital Signs: Last Vital Signs Temp 99.0 F 07/31/17 17:02 Pulse 73 07/31/17 17:02 Resp 19 07/31/17 17:02 BP 115/70 07/31/17 17:02 Pulse Ox 99 07/31/17 17:21 - Medical History PMH: Anemia, Benign Prostatic Hyperplasia, HTN, Hypercholesterolemia, Hyperlipidemia Denies: Chronic Kidney Disease Surgical History: CABG (2013 X3) - [facility] Procedures CONTROL BLEEDING IN GENITOURINARY TRACT, ENDO (11/21/15) DESTRUCTION OF BLADDER NECK, VIA OPENING (01/28/16) DILATION OF URETHRA, ENDO (07/18/17) DILATION OF URETHRA, VIA NATURAL OR ARTIFICIAL OPENING (03/22/16) DRAINAGE OF BLADDER WITH DRAINAGE DEVICE, PERC APPROACH (03/22/16) EXCISION OF DESCENDING COLON, ENDO, DIAGN (09/07/15) EXCISION OF LEFT UPPER LEG SKIN, EXTERNAL APPROACH, DIAGN (07/04/16) EXCISION OF STOMACH, ENDO, DIAGN (09/07/15) EXTIRPATION OF MATTER FROM BLADDER, ENDO (11/21/15) FLUOROSCOPY OF KIDNEYS, URETERS AND BLADDER (11/21/15) PLAIN RADIOGRAPHY OF BLADDER AND URETHRA (07/04/16) RELEASE URETHRA, ENDO (07/18/17) RESECTION OF PROSTATE, ENDO (01/01/16) Family History: States: Unknown Family Hx - Social History Hx Tobacco Use: No Hx Alcohol Use: No Hx Substance Use: No - Immunization History Hx Tetanus Toxoid Vaccination: No Hx Influenza Vaccination: Yes Hx Pneumococcal Vaccination: Yes Review Of Systems Except As Marked, All Systems Reviewed And Found Negative. Constitutional: Negative for: Fever, Chills Cardiovascular: Negative for: Chest Pain Respiratory: Negative for: Shortness of Breath Gastrointestinal: Negative for: Abdominal Pain Genitourinary: Positive for: Scrotal Pain Physical Exam - Physical Exam Appears: Non-toxic Skin: Normal Color Eye(s): bilateral: Normal Inspection Neck: Supple Chest: Symmetrical Cardiovascular: Rhythm Regular Respiratory: Normal Breath Sounds Male Genital: Other (suprapubic catheter in place with clear urine, no surrounding erythema noted. fraser catheter in place with clear urine as well. Edema and exchoriation noted to head of penis; right > left scrotum with macerated tissue, erythema and pus. Minor inguinal lymphadenopathy noted bilaterally) Neurological/Psych: Oriented x3, Other (flat affect) ED Course And Treatment - Laboratory Results Result Diagrams: 07/31/17 14:34 07/31/17 14:34 Lab Interpretation: Normal (UA 38 WBC's) ECG: Interpreted By Me ECG Rhythm: Sinus Rhythm Rate From EC O2 Sat by Pulse Oximetry: 99 (RA) Pulse Ox Interpretation: Normal - Radiology CXR: Interpreted by Me CXR Interpretation: Yes: No Acute Disease Progress Note: rocephin IV, IVF Reevaluation Time: 16:04 Reassessment Condition: Improved - Physician Consult Information Outcome Of Conversation: 1340: multiple times d/w nicolette Trevino to admit and will consult, recommends Rocephin IV. 1445: d/w Dr. Vicente- nicolette TERAN to admit. Medical Decision Making Medical Decision Making: suprapubic and fraser and cellulitis of scrotum are acute on chronic, no significant UTI now. Disposition Doctor Will See Patient In The: Hospital Counseled Patient/Family Regarding: Studies Performed, Diagnosis - Disposition Disposition: HOSPITALIZED Disposition Time: 15:30 Condition: GOOD - Clinical Impression Clinical Impression: Urinary problem, Fraser catheter problem, Cellulitis of scrotum - Scribe Statement The provider has reviewed the documentation as recorded by the Mishelibe (Olivia Gates) Provider Attestation: All medical record entries made by the Mishelibyogesh were at my direction and personally dictated by me. I have reviewed the chart and agree that the record accurately reflects my personal performance of the history, physical exam, medical decision making, and the department course for this patient. I have also personally directed, reviewed, and agree with the discharge instructions and disposition.
[2017-08-01] MEDS: cefTRIAXone IV 1 gm in Dextros 1 GM in Dextrose 5% In Water 50 ML IVPB SCH (10:00)
[2017-08-01] MEDS: Pantoprazole 40 mg EC Tab PO SCH (10:01)
[2017-08-01 19:38] VITALS: RESP 20
--- NOTE | 2017-08-01 22:30 | CARD ---
APPROVED REPORT EKG Measurement Heart [id number] 156P31 [id number] <Conclusion> Normal sinus rhythm Normal ECG
[2017-08-02] MEDS: Hydrocortisone 2.5% Rectal Cream(30 gm) PR SCH ×3 (09:24→21:15)
[2017-08-02] MEDS: cefTRIAXone IV 1 gm in Dextros 1 GM in Dextrose 5% In Water 50 ML IVPB SCH (09:24)
[2017-08-02] MEDS: Tobramycin 0.3% OPHT SOLN OS SCH ×4 (09:24→21:03)
[2017-08-02] MEDS: PrednisoLONE 1% Opht Susp(5 ml) OS SCH ×5 (09:25→21:02)
[2017-08-02] MEDS: Pantoprazole 40 mg EC Tab PO SCH (09:25)
--- NOTE | 2017-08-02 10:37 | CP.PCM.CON ---
History of Present Illness - History of Present Illness History of Present Illness: 62 year old male with h/o Anemia, Benign Prostatic Hyperplasia , HTN, Hyperlipidemia,CAD , CABG 2012, suprapubic catheter admitted yesterday for scrotal cellulitis /impending gangrene On last admission Patient had cystoscopy,optical internal Urethrotomy, cystogram and attempted removal of foreign body. Following procedure patient had swelling to bilateral groins,scrotum (with skin tear) and penis with drainage of serosanguinous fluid from scrotum. Patient treated with IV antibiotics and sent to snf but returns with persistent swelling and necrosis of scrotum has hx of sever bacterial conjuncivitis/ corneal ulcer - ESBL + gram neg s/p 6 weeks iv rx Review of Systems - Constitutional Constitutional: As Per HPI - EENT Eyes: absent: As Per HPI, Blind Spots, Blurred Vision, Change in Vision, Decreased Night Vision, Diplopia, Discharge, Dry Eye, Exophthalmos, Floaters, Irritation, Itchy Eyes, Loss of Peripheral Vision, Pain, Photophobia, Requires Corrective Lenses, Sees Flashes, Spots in Vision, Tunnel Vision, Other Visual Disturbances, Loss of Vision, Other Ears: absent: As Per HPI, Decreased Hearing, Ear Discharge, Ear Pain, Tinnitus, Abnormal Hearing, Disequilibrium, Dizziness, Other Nose/Mouth/Throat: absent: As Per HPI, Epistaxis, Nasal Congestion, Nasal Discharge, Nasal Obstruction, Nasal Trauma, Nose Pain, Post Nasal Drip, Sinus Pain, Sinus Pressure, Bleeding Gums, Change in Voice, Dental Pain, Dry Mouth, Dysphagia, Halitosis, Hoarsness, Lip Swelling, Mouth Lesions, Mouth Pain, Odynophagia, Sore Throat, Throat Swelling, Tongue Swelling, Facial Pain, Neck Pain, Neck Mass, Other - Cardiovascular Cardiovascular: absent: As Per HPI, Acrocyanosis, Chest Pain, Chest Pain at Rest , Chest Pain with Activity, Claudication, Diaphoresis, Dyspnea, Dyspnea on Exertion, Edema, Irregular Heart Rhythm, Pain Radiating to Arm/Neck/Jaw, Leg Edema, Leg Ulcers, Lightheadedness, Orthopnea, Palpitations, Paroxysmal Nocturnal Dyspnea, Pedal Edema, Radiating Pain, Rapid Heart Rate, Slow Heart Rate, Syncope, Other - Respiratory Respiratory: absent: As Per HPI, Cough, Dyspnea, Hemoptysis, Dyspnea on Exertion , Wheezing, Snoring, Stridor, Pain on Inspiration, Chest Congestion, Excessive Mucous Production, Change in Mucous Color, Pain with Coughing, Other - Gastrointestinal Gastrointestinal: absent: As Per HPI, Abdominal Pain, Belching, Bloating, Change in Bowel Habits, Change in Stool Character, Coffee Ground Emesis, Constipation, Cramping, Diarrhea, Dyspepsia, Dysphagia, Early Satiety, Excessive Flatus, Fecal Incontinence, Heartburn, Hematemesis, Hematochezia, Loose Stools, Melena, Nausea, Odynophagia, Temesmus, Vomiting, Other - Genitourinary Genitourinary: As Per HPI - Musculoskeletal Musculoskeletal: As Per HPI - Integumentary Integumentary: As Per HPI - Neurological Neurological: As Per HPI - Psychiatric Psychiatric: absent: As Per HPI, Abnormal Sleep Pattern, Anhedonia, Anxiety, Auditory Hallucinations, Behavioral Changes, Change in Appetite, Change in Libido, Confusion, Depression, Difficulty Concentrating, Hallucinations, Homicidal Ideation, Hopelessness, Irritability, Memory Loss, Mood Swings, Panic Attacks, Paranoia, Suicidal Ideation, Visual Hallucinations, Tactile Hallucinations, Other - Endocrine Endocrine: absent: As Per HPI, Change in Body Appearance, Change in Libido, Cold Intolorance, Deepening of Voice, Excessive Sweating, Fatigue, Flushing, Heat Intolorance, Increase in Ring/Shoe/Hat Size, Palpitations, Polydipsia, Polyphagia, Polyuria, Other - Hematologic/Lymphatic Hematologic: absent: As Per HPI, Easy Bleeding, Easy Bruising, Lymphadenopathy, Other Past Patient History - Infectious Disease Hx of Infectious Diseases: None - Past Medical History & Family History Past Medical History?: Yes - Past Social History Smoking Status: Never Smoked - CARDIAC Hx Hypercholesterolemia: Yes Hx Hypertension: Yes - PULMONARY Hx Respiratory Disorders: No - NEUROLOGICAL Hx Neurological Disorder: No - HEENT Hx HEENT Problems: Yes Hx Epistaxis: Yes - RENAL Hx Chronic Kidney Disease: No - ENDOCRINE/METABOLIC Hx Endocrine Disorders: No - HEMATOLOGICAL/ONCOLOGICAL Hx Anemia: Yes - INTEGUMENTARY Hx Dermatological Problems: No - MUSCULOSKELETAL/RHEUMATOLOGICAL Hx Falls: No - GASTROINTESTINAL Hx Gastrointestinal Disorders: Yes Hx Hemorrhoids: Yes - GENITOURINARY/GYNECOLOGICAL Hx Genitourinary Disorders: Yes - PSYCHIATRIC Hx Substance Use: No - SURGICAL HISTORY Hx Coronary Artery Bypass Graft: Yes (2013 X3) - ANESTHESIA Hx Anesthesia: Yes Hx Anesthesia Reactions: No Hx Malignant Hyperthermia: No Meds Allergies/Adverse Reactions: Allergies Allergy/AdvReac Type Severity Reaction Status Date / Time hydromorphone [From Dilaudid] AdvReac ITCHING Verified 07/31/17 13:32 - Medications Medications: Current Medications Acetaminophen (Tylenol 325mg Tab) 650 mg PO Q6 PRN PRN Reason: Pain, Mild (1-3) Acetaminophen (Tylenol 325mg Tab) 650 mg PO Q6 PRN PRN Reason: Fever >100.4 F Docusate Sodium (Colace) 100 mg PO TID [facility] Last Admin: 08/02/17 09:26 Dose: Not Given Fenofibrate (Tricor) 145 mg PO HS [facility] Hydrocortisone (Anusol-Hc) 1 gm [place] BID [facility] Last Admin: 08/02/17 09:24 Dose: 1 appl Ceftriaxone Sodium 1 gm/ (Dextrose) 100 mls @ 50 mls/30 min IVPB DAILY [facility] Last Admin: 08/02/17 09:24 Dose: 50 mls/30 min Metoprolol Tartrate (Lopressor) 12.5 mg PO DAILY [facility] Last Admin: 08/02/17 09:31 Dose: 12.5 mg Pantoprazole Sodium (Protonix Ec Tab) 40 mg PO DAILY [facility] Last Admin: 08/02/17 09:25 Dose: 40 mg Prednisolone Acetate (Pred Forte 1% Opht Susp) 1 ml OS TID [facility] Last Admin: 08/02/17 09:25 Dose: 1 drop Rosuvastatin Calcium (Crestor) 5 mg PO HS [facility] Last Admin: 08/01/17 21:24 Dose: 5 mg Tamsulosin HCl (Flomax) 0.4 mg PO DAILY [facility] Last Admin: 08/02/17 09:25 Dose: 0.4 mg Tobramycin Sulfate (Tobrex 0.3% Ophth Soln) 1 drop OS BID [facility] Last Admin: 08/02/17 09:24 Dose: 1 drop Zolpidem Tartrate (Ambien) 5 mg PO HS PRN PRN Reason: Insomnia Physical Exam - Constitutional Appears: Non-toxic, Chronically Ill - Head Exam Head Exam: NORMOCEPHALIC - Eye Exam Eye Exam: PERRL. absent: Scleral icterus - ENT Exam ENT Exam: Mucous Membranes Dry - Neck Exam Neck exam: Negative for: Lymphadenopathy - Respiratory Exam Respiratory Exam: Decreased Breath Sounds, Clear to Auscultation Bilateral - Cardiovascular Exam Cardiovascular Exam: REGULAR RHYTHM, +S1, +S2 - GI/Abdominal Exam GI & Abdominal Exam: Diminished Bowel Sounds, Soft. absent: Tenderness - Rectal Exam Rectal Exam: Deferred - Exam Exam: Scrotal Swelling, Testicular Tenderness, Uretheral Discharge. absent: NORMAL INSPECTION - Extremities Exam Extremities exam: Positive for: pedal edema, pedal pulses present. Negative for : calf tenderness, tenderness - Back Exam Back exam: absent: CVA tenderness (L), CVA tenderness (R) - Neurological Exam Neurological exam: Alert, CN II-XII Intact, Oriented x3 - Psychiatric Exam Psychiatric exam: Depressed - Skin Skin Exam: Dry Results - Vital Signs Recent Vital Signs: Last Vital Signs Temp 98.4 F 08/02/17 08:44 Pulse 84 08/02/17 08:44 Resp 20 08/02/17 08:44 BP 120/72 08/02/17 08:44 Pulse Ox 99 08/02/17 08:44 - Labs Result Diagrams: 08/04/17 06:56 08/04/17 06:56 Assessment & Plan (1) Cellulitis of scrotum Status: Acute (2) Corneal transplant status Status: Acute (3) Leblanc catheter problem Status: Acute (4) Urinary problem Status: Acute (5) Acute blood loss anemia Status: Acute (6) BPH (benign prostatic hyperplasia) Status: Acute (7) Complication, suprapubic catheter obstruction Status: Acute (8) Hematuria Status: Acute (9) Urethral stricture Status: Acute (10) Urinary retention Status: Acute - Assessment and Plan (Free Text) Assessment: await cultures cont iv antibioitics and wound care
[2017-08-02] MEDS: Meropenem 500 MG in Sodium Chloride 0.9% 100 ML IVPB SCH ×2 (13:51→21:03)
--- NOTE | 2017-08-02 18:17 | CP.PCM.CON ---
History of Present Illness - History of Present Illness History of Present Illness: 62 yo M hx corneal transplant OS ophtho consulted for L eye pain. Pt reports occasional irritation OS denies pain or change in vision. Past Patient History - Infectious Disease Hx of Infectious Diseases: None - Past Medical History & Family History Past Medical History?: Yes - Past Social History Smoking Status: Never Smoked - CARDIAC Hx Hypercholesterolemia: Yes Hx Hypertension: Yes - PULMONARY Hx Respiratory Disorders: No - NEUROLOGICAL Hx Neurological Disorder: No - HEENT Hx HEENT Problems: Yes Hx Epistaxis: Yes - RENAL Hx Chronic Kidney Disease: No - ENDOCRINE/METABOLIC Hx Endocrine Disorders: No - HEMATOLOGICAL/ONCOLOGICAL Hx Anemia: Yes - INTEGUMENTARY Hx Dermatological Problems: No - MUSCULOSKELETAL/RHEUMATOLOGICAL Hx Falls: No - GASTROINTESTINAL Hx Gastrointestinal Disorders: Yes Hx Hemorrhoids: Yes - GENITOURINARY/GYNECOLOGICAL Hx Genitourinary Disorders: Yes - PSYCHIATRIC Hx Substance Use: No - SURGICAL HISTORY Hx Coronary Artery Bypass Graft: Yes (2013 X3) - ANESTHESIA Hx Anesthesia: Yes Hx Anesthesia Reactions: No Hx Malignant Hyperthermia: No Meds Allergies/Adverse Reactions: Allergies Allergy/AdvReac Type Severity Reaction Status Date / Time hydromorphone [From Dilaudid] AdvReac ITCHING Verified 07/31/17 13:32 - Medications Medications: Current Medications Acetaminophen (Tylenol 325mg Tab) 650 mg PO Q6 PRN PRN Reason: Pain, Mild (1-3) Acetaminophen (Tylenol 325mg Tab) 650 mg PO Q6 PRN PRN Reason: Fever >100.4 F Docusate Sodium (Colace) 100 mg PO TID [facility] Last Admin: 08/02/17 17:31 Dose: 100 mg Fenofibrate (Tricor) 145 mg PO HS [facility] Hydrocortisone (Anusol-Hc) 1 gm [place] BID [facility] Last Admin: 08/02/17 09:24 Dose: 1 appl Meropenem 500 mg/ Sodium (Chloride) 100 mls @ 100 mls/hr IVPB Q8 [facility] Last Admin: 08/02/17 13:51 Dose: 100 mls/hr Linezolid (Zyvox 600mg/300ml D5w) 600 mg in 300 mls @ 200 mls/hr IVPB Q12 [facility] Metoprolol Tartrate (Lopressor) 12.5 mg PO DAILY [facility] Last Admin: 08/02/17 09:31 Dose: 12.5 mg Pantoprazole Sodium (Protonix Ec Tab) 40 mg PO DAILY [facility] Last Admin: 08/02/17 09:25 Dose: 40 mg Prednisolone Acetate (Pred Forte 1% Opht Susp) 1 ml OS TID [facility] Last Admin: 08/02/17 14:47 Dose: 1 drop Rosuvastatin Calcium (Crestor) 5 mg PO HS [facility] Last Admin: 08/01/17 21:24 Dose: 5 mg Tamsulosin HCl (Flomax) 0.4 mg PO DAILY [facility] Last Admin: 08/02/17 09:25 Dose: 0.4 mg Tobramycin Sulfate (Tobrex 0.3% Ophth Soln) 1 drop [place] BID [facility] Last Admin: 08/02/17 09:24 Dose: 1 drop Zolpidem Tartrate (Ambien) 5 mg PO HS PRN PRN Reason: Insomnia Physical Exam - Eye Exam Eye Exam: PERRL Pupil Exam: PERRL Additional comments: Conj W/Q OU K OD clear OS BCL in place, graft clear AC D/Q OU 1+NSC OU Results - Vital Signs Recent Vital Signs: Last Vital Signs Temp 98.4 F 08/02/17 15:00 Pulse 72 08/02/17 15:00 Resp 20 08/02/17 15:00 BP 139/75 08/02/17 15:00 Pulse Ox 100 08/02/17 15:00 - Labs Result Diagrams: 07/31/17 14:34 07/31/17 14:34 Assessment & Plan (1) Corneal transplant status Assessment and Plan: s/p corneal transplant OS BCL in place no signs infection Tobramycin 0/3, Prednisolone 0/3 Outpatient follow-up with primary ophtho Status: Acute
[2017-08-02] MEDS: Linezolid 600 mg in D5W 300 ml 600 MG/300 ML BAG IVPB SCH (23:15)
[2017-08-03] MEDS: Meropenem 500 MG in Sodium Chloride 0.9% 100 ML IVPB SCH ×3 (05:47→21:05)
[2017-08-03] MEDS: Pantoprazole 40 mg EC Tab PO SCH (10:34)
[2017-08-03] MEDS: PrednisoLONE 1% Opht Susp(5 ml) OS SCH ×4 (10:34→21:04)
[2017-08-03] MEDS: Tobramycin 0.3% OPHT SOLN OS SCH ×3 (10:34→21:04)
[2017-08-03] MEDS: Hydrocortisone 2.5% Rectal Cream(30 gm) PR SCH ×2 (10:35→18:00)
[2017-08-03] MEDS: Linezolid 600 mg in D5W 300 ml 600 MG/300 ML BAG IVPB SCH ×2 (10:45→22:15)
[2017-08-03] MEDS ORDERED: Fluconazole IV 200mg/100 ml NS 100 ML IVPB ONE (14:00)
--- NOTE | 2017-08-03 17:32 | CP.PCM.CON ---
History of Present Illness - History of Present Illness History of Present Illness: HPI: 62 year old male with h/o Anemia, Benign Prostatic Hyperplasia , HTN, Hyperlipidemia,CAD , CABG 2013, suprapubic catheter admitted yesterday for scrotal cellulitis /impending gangrene On last admission Patient had cystoscopy,optical internal Urethrotomy, cystogram and attempted removal of foreign body. Following procedure patient had swelling to bilateral groins,scrotum (with skin tear) and penis with drainage of serosanguinous fluid from scrotum. Patient treated with IV antibiotics and sent to custodial but returns with persistent swelling and necrosis of scrotum has hx of sever bacterial conjuncivitis/ corneal ulcer - ESBL + gram neg s/p 6 weeks iv rx Review of Systems - Constitutional Constitutional: Malaise - Cardiovascular Cardiovascular: absent: Chest Pain, Dyspnea on Exertion, Rapid Heart Rate - Respiratory Respiratory: absent: Dyspnea on Exertion - Neurological Neurological: absent: Disequilibrium, Dizziness Past Patient History - Infectious Disease Hx of Infectious Diseases: None - Past Medical History & Family History Past Medical History?: Yes - Past Social History Smoking Status: Never Smoked - CARDIAC Hx Hypercholesterolemia: Yes Hx Hypertension: Yes - PULMONARY Hx Respiratory Disorders: No - NEUROLOGICAL Hx Neurological Disorder: No - HEENT Hx HEENT Problems: Yes Hx Epistaxis: Yes - RENAL Hx Chronic Kidney Disease: No - ENDOCRINE/METABOLIC Hx Endocrine Disorders: No - HEMATOLOGICAL/ONCOLOGICAL Hx Anemia: Yes - INTEGUMENTARY Hx Dermatological Problems: No - MUSCULOSKELETAL/RHEUMATOLOGICAL Hx Falls: No - GASTROINTESTINAL Hx Gastrointestinal Disorders: Yes Hx Hemorrhoids: Yes - GENITOURINARY/GYNECOLOGICAL Hx Genitourinary Disorders: Yes - PSYCHIATRIC Hx Substance Use: No - SURGICAL HISTORY Hx Coronary Artery Bypass Graft: Yes (2013 X3) - ANESTHESIA Hx Anesthesia: Yes Hx Anesthesia Reactions: No Hx Malignant Hyperthermia: No Meds Allergies/Adverse Reactions: Allergies Allergy/AdvReac Type Severity Reaction Status Date / Time hydromorphone [From Dilaudid] AdvReac ITCHING Verified 07/31/17 13:32 - Medications Medications: Current Medications Acetaminophen (Tylenol 325mg Tab) 650 mg PO Q6 PRN PRN Reason: Pain, Mild (1-3) Last Admin: 08/03/17 01:49 Dose: 650 mg Acetaminophen (Tylenol 325mg Tab) 650 mg PO Q6 PRN PRN Reason: Fever >100.4 F Docusate Sodium (Colace) 100 mg PO TID [facility] Last Admin: 08/03/17 14:44 Dose: 100 mg Fenofibrate (Tricor) 145 mg PO HS [facility] Last Admin: 08/02/17 23:14 Dose: 145 mg Hydrocortisone (Anusol-Hc) 1 gm [place] BID [facility] Last Admin: 08/03/17 10:35 Dose: 1 appl Meropenem 500 mg/ Sodium (Chloride) 100 mls @ 100 mls/hr IVPB Q8 [facility] Last Admin: 08/03/17 14:32 Dose: Not Given Linezolid (Zyvox 600mg/300ml D5w) 600 mg in 300 mls @ 200 mls/hr IVPB Q12 [facility] Last Admin: 08/03/17 10:45 Dose: 200 mls/hr Fluconazole 100 mg/ (Miscellaneous) 50 mls @ 100 mls/hr IVPB DAILY [facility] Metoprolol Tartrate (Lopressor) 12.5 mg PO DAILY [facility] Last Admin: 08/03/17 10:34 Dose: 12.5 mg Pantoprazole Sodium (Protonix Ec Tab) 40 mg PO DAILY [facility] Last Admin: 08/03/17 10:34 Dose: 40 mg Prednisolone Acetate (Pred Forte 1% Opht Susp) 1 ml OS TID [facility] Last Admin: 08/03/17 14:32 Dose: 1 drop Rosuvastatin Calcium (Crestor) 5 mg PO HS [facility] Last Admin: 08/02/17 21:02 Dose: 5 mg Tamsulosin HCl (Flomax) 0.4 mg PO DAILY [facility] Last Admin: 08/03/17 10:34 Dose: 0.4 mg Tobramycin Sulfate (Tobrex 0.3% Ophth Soln) 1 drop OS BID [facility] Last Admin: 08/03/17 10:34 Dose: 1 drop Zolpidem Tartrate (Ambien) 5 mg PO HS PRN PRN Reason: Insomnia Last Admin: 08/03/17 01:48 Dose: 5 mg Results - Vital Signs Recent Vital Signs: Last Vital Signs Temp 98.1 F 08/03/17 16:11 Pulse 71 08/03/17 16:11 Resp 20 08/03/17 16:11 BP 137/80 08/03/17 16:11 Pulse Ox 99 08/03/17 16:11 - Labs Result Diagrams: 07/31/17 14:34 07/31/17 14:34 Assessment & Plan - Assessment and Plan (Free Text) Assessment: CAD Scrotal cellulitis T2dm Anemia HTN BPH Plan: Cont ABTX Cont meds. - Date & Time Date: 08/02/17 Time: 08:30
--- NOTE | 2017-08-03 18:25 | CP.PCM.PN ---
Subjective - Date & Time of Evaluation Date of Evaluation: 08/03/17 Time of Evaluation: 09:00 - Subjective Subjective: SEEN BY OPHTHALMOLOGY AWAIT FOLLOW UP HAS DRY NECROTIC SKIN ON SCROTUM BUT NO DRAINAGE AT PRESENT SO FAR CULTURES ARE NEG NEEDS GOOD WOUND CARE AND SHORT COURSE IV ANTIBIOTICS WITH CLOSE FOLLOW UP Objective - Vital Signs/Intake and Output Vital Signs (last 24 hours): Temp Pulse Resp BP Pulse Ox 98.1 F 71 20 137/80 99 08/03/17 16:11 08/03/17 16:11 08/03/17 16:11 08/03/17 16:11 08/03/17 16:11 Intake and Output: 08/03/17 08/03/17 06:59 18:59 Intake Total 900 370 Output Total 600 Balance 300 370 - Medications Medications: Current Medications Acetaminophen (Tylenol 325mg Tab) 650 mg PO Q6 PRN PRN Reason: Pain, Mild (1-3) Last Admin: 08/03/17 01:49 Dose: 650 mg Acetaminophen (Tylenol 325mg Tab) 650 mg PO Q6 PRN PRN Reason: Fever >100.4 F Docusate Sodium (Colace) 100 mg PO TID [facility] Last Admin: 08/03/17 17:45 Dose: 100 mg Fenofibrate (Tricor) 145 mg PO HS [facility] Last Admin: 08/02/17 23:14 Dose: 145 mg Hydrocortisone (Anusol-Hc) 1 gm [place] BID [facility] Last Admin: 08/03/17 10:35 Dose: 1 appl Meropenem 500 mg/ Sodium (Chloride) 100 mls @ 100 mls/hr IVPB Q8 [facility] Last Admin: 08/03/17 14:32 Dose: Not Given Linezolid (Zyvox 600mg/300ml D5w) 600 mg in 300 mls @ 200 mls/hr IVPB Q12 [facility] Last Admin: 08/03/17 10:45 Dose: 200 mls/hr Fluconazole 100 mg/ (Miscellaneous) 50 mls @ 100 mls/hr IVPB DAILY [facility] Metoprolol Tartrate (Lopressor) 12.5 mg PO DAILY [facility] Last Admin: 08/03/17 10:34 Dose: 12.5 mg Pantoprazole Sodium (Protonix Ec Tab) 40 mg PO DAILY [facility] Last Admin: 08/03/17 10:34 Dose: 40 mg Prednisolone Acetate (Pred Forte 1% Opht Susp) 1 ml OS TID [facility] Last Admin: 08/03/17 14:32 Dose: 1 drop Rosuvastatin Calcium (Crestor) 5 mg PO HS [facility] Last Admin: 08/02/17 21:02 Dose: 5 mg Tamsulosin HCl (Flomax) 0.4 mg PO DAILY [facility] Last Admin: 08/03/17 10:34 Dose: 0.4 mg Tobramycin Sulfate (Tobrex 0.3% Ophth Soln) 1 drop OS BID [facility] Last Admin: 08/03/17 10:34 Dose: 1 drop Zolpidem Tartrate (Ambien) 5 mg PO HS PRN PRN Reason: Insomnia Last Admin: 08/03/17 01:48 Dose: 5 mg - Labs Labs: 07/31/17 14:34 07/31/17 14:34 PT 14.8 SECONDS (9.7-12.2) H 07/31/17 14:34 INR 1.3 07/31/17 14:34 APTT 36 SECONDS (21-34) H 07/31/17 14:34 - Constitutional Appears: Non-toxic, Chronically Ill - Head Exam Head Exam: NORMOCEPHALIC - Eye Exam Eye Exam: PERRL - ENT Exam ENT Exam: Mucous Membranes Dry - Neck Exam Neck Exam: absent: Lymphadenopathy - Respiratory Exam Respiratory Exam: Decreased Breath Sounds - Cardiovascular Exam Cardiovascular Exam: REGULAR RHYTHM - GI/Abdominal Exam GI & Abdominal Exam: Distended - Rectal Exam Rectal Exam: Deferred - Exam Exam: NORMAL INSPECTION - Extremities Exam Extremities Exam: absent: Pedal Edema - Back Exam Back Exam: absent: CVA tenderness (L), CVA tenderness (R) - Neurological Exam Neurological Exam: Alert, Awake, Oriented x3 Assessment and Plan - Assessment and Plan (Free Text) Assessment: CONT RX FOR CELLULITIS SCROTUM PROGNOSIS GUARDED
[2017-08-04] MEDS: Meropenem 500 MG in Sodium Chloride 0.9% 100 ML IVPB SCH ×3 (05:56→21:08)
[2017-08-04 07:07] LABS: BASO % 0.2 % (0.0-2.0); EOS # 0.4 K/uL (0.0-0.7); EOS % 5.7 % (0.0-4.0); HEMOGLOBIN 8.9 g/dL (12.0-18.0); LYMPH # 1.5 K/uL (1.0-4.3); LYMPH % 20.5 % (20.0-40.0); MEAN CELL VOLUME 85.9 fL (80.0-94.0); MEAN CORPUSCULAR HEMOGLOBIN 30.2 pg (27.0-31.0); MEAN CORPUSCULAR HGB CONC 35.1 g/dL (33.0-37.0); MONO # 0.7 K/uL (0.0-0.8); MONO % 9.5 % (0.0-10.0); NEUT # 4.7 K/uL (1.8-7.0); NEUT % 64.1 % (50.0-75.0); RBC 2.94 Mil/uL (4.40-5.90); WHITE BLOOD COUNT 7.3 K/uL (4.8-10.8)
[2017-08-04 07:37] LABS: ALB/GLOB RATIO 0.9 (1.0-2.1); ALT/SGPT 24 U/L (21-72); AST/SGOT 18 U/L (17-59); BLOOD UREA NITROGEN 9 mg/dL (9-20); CALCIUM 8.3 mg/dl (8.6-10.4); GFR AFRICAN-AMERICAN > 60; GFR NON-AFRICAN AMERICAN > 60
[2017-08-04] MEDS: PrednisoLONE 1% Opht Susp(5 ml) OS SCH ×4 (09:46→20:19)
[2017-08-04] MEDS: Fluconazole IV 200mg/100 ml NS 100 MG in Premixed IV 1 EA IVPB SCH (09:47)
[2017-08-04] MEDS: Tobramycin 0.3% OPHT SOLN OS SCH ×3 (09:47→20:19)
[2017-08-04] MEDS: Pantoprazole 40 mg EC Tab PO SCH (09:47)
[2017-08-04] MEDS: Linezolid 600 mg in D5W 300 ml 600 MG/300 ML BAG IVPB SCH ×2 (09:48→22:20)
[2017-08-04] MEDS: Hydrocortisone 2.5% Rectal Cream(30 gm) PR SCH ×3 (09:56→20:20)
[2017-08-04] MEDS ORDERED: Potassium Chloride 20 mEq ER Tab PO ONE (10:00)
--- NOTE | 2017-08-04 18:59 | CP.PCM.PN ---
Subjective - Date & Time of Evaluation Date of Evaluation: 08/04/17 Time of Evaluation: 08:00 - Subjective Subjective: c/o painful swelling of scrotum may need debridement dr callejas on board iv rx and wound care orders signed prognosis guarded Objective - Vital Signs/Intake and Output Vital Signs (last 24 hours): Temp Pulse Resp BP Pulse Ox 98.4 F 64 20 131/76 96 08/04/17 15:46 08/04/17 15:46 08/04/17 15:46 08/04/17 15:46 08/04/17 15:46 Intake and Output: 08/04/17 08/04/17 06:59 18:59 Intake Total 900 1080 Output Total 1850 Balance 900 -770 - Medications Medications: Current Medications Acetaminophen (Tylenol 325mg Tab) 650 mg PO Q6 PRN PRN Reason: Pain, Mild (1-3) Last Admin: 08/03/17 01:49 Dose: 650 mg Acetaminophen (Tylenol 325mg Tab) 650 mg PO Q6 PRN PRN Reason: Fever >100.4 F Docusate Sodium (Colace) 100 mg PO TID [facility] Last Admin: 08/04/17 17:48 Dose: 100 mg Fenofibrate (Tricor) 145 mg PO HS [facility] Last Admin: 08/03/17 21:17 Dose: 145 mg Hydrocortisone (Anusol-Hc) 1 gm [place] BID [facility] Last Admin: 08/04/17 18:08 Dose: Not Given Meropenem 500 mg/ Sodium (Chloride) 100 mls @ 100 mls/hr IVPB Q8 [facility] Last Admin: 08/04/17 14:30 Dose: 100 mls/hr Linezolid (Zyvox 600mg/300ml D5w) 600 mg in 300 mls @ 200 mls/hr IVPB Q12 [facility] Last Admin: 08/04/17 09:48 Dose: 200 mls/hr Fluconazole 100 mg/ (Miscellaneous) 50 mls @ 100 mls/hr IVPB DAILY [facility] Last Admin: 08/04/17 09:47 Dose: 100 mls/hr Metoprolol Tartrate (Lopressor) 12.5 mg PO DAILY [facility] Last Admin: 08/04/17 09:47 Dose: 12.5 mg Pantoprazole Sodium (Protonix Ec Tab) 40 mg PO DAILY [facility] Last Admin: 08/04/17 09:47 Dose: 40 mg Prednisolone Acetate (Pred Forte 1% Opht Susp) 1 ml OS TID [facility] Last Admin: 08/04/17 18:09 Dose: Not Given Rosuvastatin Calcium (Crestor) 5 mg PO HS [facility] Last Admin: 08/03/17 21:02 Dose: 5 mg Tamsulosin HCl (Flomax) 0.4 mg PO DAILY [facility] Last Admin: 08/04/17 09:47 Dose: 0.4 mg Tobramycin Sulfate (Tobrex 0.3% Ophth Soln) 1 drop OS BID [facility] Last Admin: 08/04/17 18:09 Dose: Not Given Zolpidem Tartrate (Ambien) 5 mg PO HS PRN PRN Reason: Insomnia Last Admin: 08/04/17 02:31 Dose: 5 mg - Labs Labs: 08/04/17 06:56 08/04/17 06:56 PT 14.8 SECONDS (9.7-12.2) H 07/31/17 14:34 INR 1.3 07/31/17 14:34 APTT 36 SECONDS (21-34) H 07/31/17 14:34 - Constitutional Appears: Non-toxic, Cachectic, Chronically Ill - Head Exam Head Exam: NORMOCEPHALIC - Eye Exam Eye Exam: PERRL - ENT Exam ENT Exam: Mucous Membranes Dry - Neck Exam Neck Exam: absent: Lymphadenopathy - Respiratory Exam Respiratory Exam: Decreased Breath Sounds - Cardiovascular Exam Cardiovascular Exam: REGULAR RHYTHM - GI/Abdominal Exam GI & Abdominal Exam: Distended, Soft - Rectal Exam Rectal Exam: Deferred - Exam Exam: Scrotal Swelling, Testicular Tenderness. absent: NORMAL INSPECTION - Extremities Exam Extremities Exam: absent: Pedal Edema - Back Exam Back Exam: absent: CVA tenderness (L), CVA tenderness (R) Assessment and Plan (1) Cellulitis of scrotum Status: Acute (2) Corneal transplant status Status: Acute (3) Leblanc catheter problem Status: Acute (4) Urinary problem Status: Acute (5) Acute blood loss anemia Status: Acute (6) BPH (benign prostatic hyperplasia) Status: Acute (7) Complication, suprapubic catheter obstruction Status: Acute (8) Hematuria Status: Acute (9) Urethral stricture Status: Acute (10) Urinary retention Status: Acute - Assessment and Plan (Free Text) Assessment: prognosis guarded may need orchiectomy if infection progresses
[2017-08-05] MEDS: Meropenem 500 MG in Sodium Chloride 0.9% 100 ML IVPB SCH ×3 (05:30→21:07)
[2017-08-05] MEDS: PrednisoLONE 1% Opht Susp(5 ml) OS SCH ×3 (09:09→20:05)
[2017-08-05] MEDS: Tobramycin 0.3% OPHT SOLN OS SCH ×2 (09:09→20:06)
[2017-08-05] MEDS: Pantoprazole 40 mg EC Tab PO SCH (09:10)
[2017-08-05] MEDS: Hydrocortisone 2.5% Rectal Cream(30 gm) PR SCH ×2 (09:15→18:00)
[2017-08-05] MEDS: Linezolid 600 mg in D5W 300 ml 600 MG/300 ML BAG IVPB SCH ×2 (10:46→22:23)
[2017-08-05] MEDS: Fluconazole IV 200mg/100 ml NS 100 MG in Premixed IV 1 EA IVPB SCH (11:00)
--- NOTE | 2017-08-05 12:27 | CP.PCM.PN ---
Subjective - Date & Time of Evaluation Date of Evaluation: 08/03/17 Time of Evaluation: 07:30 - Subjective Subjective: no chest pain c/o eye discomfort no sob scrotal swelling Objective - Vital Signs/Intake and Output Vital Signs (last 24 hours): Temp Pulse Resp BP Pulse Ox 98.2 F 76 20 115/62 95 08/05/17 08:00 08/05/17 08:00 08/05/17 08:00 08/05/17 08:00 08/05/17 08:00 Intake and Output: 08/05/17 08/05/17 06:59 18:59 Intake Total 1700 Output Total 2500 Balance -800 - Medications Medications: Current Medications Acetaminophen (Tylenol 325mg Tab) 650 mg PO Q6 PRN PRN Reason: Pain, Mild (1-3) Last Admin: 08/03/17 01:49 Dose: 650 mg Acetaminophen (Tylenol 325mg Tab) 650 mg PO Q6 PRN PRN Reason: Fever >100.4 F Docusate Sodium (Colace) 100 mg PO TID [facility] Last Admin: 08/05/17 09:10 Dose: 100 mg Fenofibrate (Tricor) 145 mg PO HS [facility] Last Admin: 08/04/17 21:07 Dose: 145 mg Hydrocortisone (Anusol-Hc) 1 gm [place] BID [facility] Last Admin: 08/05/17 09:15 Dose: Not Given Meropenem 500 mg/ Sodium (Chloride) 100 mls @ 100 mls/hr IVPB Q8 [facility] Last Admin: 08/05/17 05:30 Dose: 100 mls/hr Linezolid (Zyvox 600mg/300ml D5w) 600 mg in 300 mls @ 200 mls/hr IVPB Q12 [facility] Last Admin: 08/05/17 10:46 Dose: 200 mls/hr Fluconazole 100 mg/ (Miscellaneous) 50 mls @ 100 mls/hr IVPB DAILY [facility] Last Admin: 08/04/17 09:47 Dose: 100 mls/hr Metoprolol Tartrate (Lopressor) 12.5 mg PO DAILY [facility] Last Admin: 08/05/17 09:12 Dose: 12.5 mg Pantoprazole Sodium (Protonix Ec Tab) 40 mg PO DAILY [facility] Last Admin: 08/05/17 09:10 Dose: 40 mg Prednisolone Acetate (Pred Forte 1% Opht Susp) 1 ml OS TID [facility] Last Admin: 08/05/17 09:09 Dose: 1 drop Rosuvastatin Calcium (Crestor) 5 mg PO HS [facility] Last Admin: 08/04/17 21:07 Dose: 5 mg Tamsulosin HCl (Flomax) 0.4 mg PO DAILY [facility] Last Admin: 08/05/17 09:11 Dose: 0.4 mg Tobramycin Sulfate (Tobrex 0.3% Ophth Soln) 1 drop OS BID [facility] Last Admin: 08/05/17 09:09 Dose: 1 drop Zolpidem Tartrate (Ambien) 5 mg PO HS PRN PRN Reason: Insomnia Last Admin: 08/05/17 01:10 Dose: 5 mg - Labs Labs: 08/04/17 06:56 08/04/17 06:56 PT 14.8 SECONDS (9.7-12.2) H 07/31/17 14:34 INR 1.3 07/31/17 14:34 APTT 36 SECONDS (21-34) H 07/31/17 14:34 - Constitutional Appears: Non-toxic - Eye Exam Eye Exam: Conjunctival injection. absent: Scleral icterus - Neck Exam Neck Exam: Full ROM - Cardiovascular Exam Cardiovascular Exam: REGULAR RHYTHM - GI/Abdominal Exam GI & Abdominal Exam: Soft - Exam Exam: Scrotal Swelling, Testicular Tenderness - Extremities Exam Extremities Exam: absent: Calf Tenderness - Neurological Exam Neurological Exam: Alert, Oriented x3 Assessment and Plan - Assessment and Plan (Free Text) Assessment: Scrotal swelling w/ cellulitis CAD T2dm BPH Plan: Cont care Abtx w/ ID
--- NOTE | 2017-08-05 12:32 | CP.PCM.PN ---
Subjective - Date & Time of Evaluation Date of Evaluation: 08/04/17 Time of Evaluation: 08:15 - Subjective Subjective: scrotal swelling w/ cellulitis case discussed w/ Dr Prince May need debridement Objective - Vital Signs/Intake and Output Vital Signs (last 24 hours): Temp Pulse Resp BP Pulse Ox 98.2 F 76 20 115/62 95 08/05/17 08:00 08/05/17 08:00 08/05/17 08:00 08/05/17 08:00 08/05/17 08:00 Intake and Output: 08/05/17 08/05/17 06:59 18:59 Intake Total 1700 Output Total 2500 Balance -800 - Medications Medications: Current Medications Acetaminophen (Tylenol 325mg Tab) 650 mg PO Q6 PRN PRN Reason: Pain, Mild (1-3) Last Admin: 08/03/17 01:49 Dose: 650 mg Acetaminophen (Tylenol 325mg Tab) 650 mg PO Q6 PRN PRN Reason: Fever >100.4 F Docusate Sodium (Colace) 100 mg PO TID [facility] Last Admin: 08/05/17 09:10 Dose: 100 mg Fenofibrate (Tricor) 145 mg PO HS [facility] Last Admin: 08/04/17 21:07 Dose: 145 mg Hydrocortisone (Anusol-Hc) 1 gm [place] BID [facility] Last Admin: 08/05/17 09:15 Dose: Not Given Meropenem 500 mg/ Sodium (Chloride) 100 mls @ 100 mls/hr IVPB Q8 [facility] Last Admin: 08/05/17 05:30 Dose: 100 mls/hr Linezolid (Zyvox 600mg/300ml D5w) 600 mg in 300 mls @ 200 mls/hr IVPB Q12 [facility] Last Admin: 08/05/17 10:46 Dose: 200 mls/hr Fluconazole 100 mg/ (Miscellaneous) 50 mls @ 100 mls/hr IVPB DAILY [facility] Last Admin: 08/04/17 09:47 Dose: 100 mls/hr Metoprolol Tartrate (Lopressor) 12.5 mg PO DAILY [facility] Last Admin: 08/05/17 09:12 Dose: 12.5 mg Pantoprazole Sodium (Protonix Ec Tab) 40 mg PO DAILY [facility] Last Admin: 08/05/17 09:10 Dose: 40 mg Prednisolone Acetate (Pred Forte 1% Opht Susp) 1 ml OS TID [facility] Last Admin: 08/05/17 09:09 Dose: 1 drop Rosuvastatin Calcium (Crestor) 5 mg PO HS [facility] Last Admin: 08/04/17 21:07 Dose: 5 mg Tamsulosin HCl (Flomax) 0.4 mg PO DAILY [facility] Last Admin: 08/05/17 09:11 Dose: 0.4 mg Tobramycin Sulfate (Tobrex 0.3% Ophth Soln) 1 drop OS BID [facility] Last Admin: 08/05/17 09:09 Dose: 1 drop Zolpidem Tartrate (Ambien) 5 mg PO HS PRN PRN Reason: Insomnia Last Admin: 08/05/17 01:10 Dose: 5 mg - Labs Labs: 08/04/17 06:56 08/04/17 06:56 PT 14.8 SECONDS (9.7-12.2) H 07/31/17 14:34 INR 1.3 07/31/17 14:34 APTT 36 SECONDS (21-34) H 07/31/17 14:34 - Constitutional Appears: Non-toxic - Head Exam Head Exam: NORMAL INSPECTION - Eye Exam Eye Exam: Scleral icterus - ENT Exam ENT Exam: Mucous Membranes Moist - Neck Exam Neck Exam: Full ROM - Respiratory Exam Respiratory Exam: NORMAL BREATHING PATTERN - Cardiovascular Exam Cardiovascular Exam: REGULAR RHYTHM - GI/Abdominal Exam GI & Abdominal Exam: Soft - Extremities Exam Extremities Exam: absent: Pedal Edema Assessment and Plan - Assessment and Plan (Free Text) Assessment: Scrotal swelling with Cellulitis T2dm CAD HTN Plan: Ok for scrotal debridement from cardiac standpoint Cont abtx
--- NOTE | 2017-08-05 12:37 | CP.PCM.PN ---
Subjective - Date & Time of Evaluation Date of Evaluation: 08/05/17 Time of Evaluation: 08:40 - Subjective Subjective: feels ok no change clinically no fever no diarrhea no chest pain Objective - Vital Signs/Intake and Output Vital Signs (last 24 hours): Temp Pulse Resp BP Pulse Ox 98.2 F 76 20 115/62 95 08/05/17 08:00 08/05/17 08:00 08/05/17 08:00 08/05/17 08:00 08/05/17 08:00 Intake and Output: 08/05/17 08/05/17 06:59 18:59 Intake Total 1700 Output Total 2500 Balance -800 - Medications Medications: Current Medications Acetaminophen (Tylenol 325mg Tab) 650 mg PO Q6 PRN PRN Reason: Pain, Mild (1-3) Last Admin: 08/03/17 01:49 Dose: 650 mg Acetaminophen (Tylenol 325mg Tab) 650 mg PO Q6 PRN PRN Reason: Fever >100.4 F Docusate Sodium (Colace) 100 mg PO TID [facility] Last Admin: 08/05/17 09:10 Dose: 100 mg Fenofibrate (Tricor) 145 mg PO HS [facility] Last Admin: 08/04/17 21:07 Dose: 145 mg Hydrocortisone (Anusol-Hc) 1 gm [place] BID [facility] Last Admin: 08/05/17 09:15 Dose: Not Given Meropenem 500 mg/ Sodium (Chloride) 100 mls @ 100 mls/hr IVPB Q8 [facility] Last Admin: 08/05/17 05:30 Dose: 100 mls/hr Linezolid (Zyvox 600mg/300ml D5w) 600 mg in 300 mls @ 200 mls/hr IVPB Q12 [facility] Last Admin: 08/05/17 10:46 Dose: 200 mls/hr Fluconazole 100 mg/ (Miscellaneous) 50 mls @ 100 mls/hr IVPB DAILY [facility] Last Admin: 08/04/17 09:47 Dose: 100 mls/hr Metoprolol Tartrate (Lopressor) 12.5 mg PO DAILY [facility] Last Admin: 08/05/17 09:12 Dose: 12.5 mg Pantoprazole Sodium (Protonix Ec Tab) 40 mg PO DAILY [facility] Last Admin: 08/05/17 09:10 Dose: 40 mg Prednisolone Acetate (Pred Forte 1% Opht Susp) 1 ml OS TID [facility] Last Admin: 08/05/17 09:09 Dose: 1 drop Rosuvastatin Calcium (Crestor) 5 mg PO HS [facility] Last Admin: 08/04/17 21:07 Dose: 5 mg Tamsulosin HCl (Flomax) 0.4 mg PO DAILY [facility] Last Admin: 08/05/17 09:11 Dose: 0.4 mg Tobramycin Sulfate (Tobrex 0.3% Ophth Soln) 1 drop OS BID [facility] Last Admin: 08/05/17 09:09 Dose: 1 drop Zolpidem Tartrate (Ambien) 5 mg PO HS PRN PRN Reason: Insomnia Last Admin: 08/05/17 01:10 Dose: 5 mg - Labs Labs: 08/04/17 06:56 08/04/17 06:56 PT 14.8 SECONDS (9.7-12.2) H 07/31/17 14:34 INR 1.3 07/31/17 14:34 APTT 36 SECONDS (21-34) H 07/31/17 14:34 - Constitutional Appears: Non-toxic - Head Exam Head Exam: NORMAL INSPECTION - Eye Exam Eye Exam: absent: Scleral icterus - ENT Exam ENT Exam: Mucous Membranes Moist - Neck Exam Neck Exam: Full ROM - Respiratory Exam Respiratory Exam: Decreased Breath Sounds - Cardiovascular Exam Cardiovascular Exam: REGULAR RHYTHM - GI/Abdominal Exam GI & Abdominal Exam: Soft. absent: Tenderness - Exam Exam: Scrotal Swelling, Testicular Tenderness - Extremities Exam Extremities Exam: absent: Pedal Edema Assessment and Plan - Assessment and Plan (Free Text) Assessment: Scrotal swelling and cellulitis CAD T2dm BPH HTN Plan: follow up Cont abtx Cont meds
--- NOTE | 2017-08-05 18:05 | CP.PCM.PN ---
Subjective - Date & Time of Evaluation Date of Evaluation: 08/05/17 Time of Evaluation: 08:00 - Subjective Subjective: iv rx in progress await consult cont rx Objective - Vital Signs/Intake and Output Vital Signs (last 24 hours): Temp Pulse Resp BP Pulse Ox 98.6 F 80 20 158/85 H 99 08/05/17 17:47 08/05/17 17:47 08/05/17 17:47 08/05/17 17:47 08/05/17 17:47 Intake and Output: 08/05/17 08/05/17 06:59 18:59 Intake Total 1700 980 Output Total 2500 1000 Balance -800 -20 - Medications Medications: Current Medications Acetaminophen (Tylenol 325mg Tab) 650 mg PO Q6 PRN PRN Reason: Pain, Mild (1-3) Last Admin: 08/03/17 01:49 Dose: 650 mg Acetaminophen (Tylenol 325mg Tab) 650 mg PO Q6 PRN PRN Reason: Fever >100.4 F Docusate Sodium (Colace) 100 mg PO TID [facility] Last Admin: 08/05/17 17:35 Dose: 100 mg Fenofibrate (Tricor) 145 mg PO HS [facility] Last Admin: 08/04/17 21:07 Dose: 145 mg Hydrocortisone (Anusol-Hc) 1 gm [place] BID [facility] Last Admin: 08/05/17 09:15 Dose: Not Given Meropenem 500 mg/ Sodium (Chloride) 100 mls @ 100 mls/hr IVPB Q8 [facility] Last Admin: 08/05/17 13:51 Dose: 100 mls/hr Linezolid (Zyvox 600mg/300ml D5w) 600 mg in 300 mls @ 200 mls/hr IVPB Q12 [facility] Last Admin: 08/05/17 10:46 Dose: 200 mls/hr Fluconazole 100 mg/ (Miscellaneous) 50 mls @ 100 mls/hr IVPB DAILY [facility] Last Admin: 08/05/17 11:00 Dose: 100 mls/hr Metoprolol Tartrate (Lopressor) 12.5 mg PO DAILY [facility] Last Admin: 08/05/17 09:12 Dose: 12.5 mg Pantoprazole Sodium (Protonix Ec Tab) 40 mg PO DAILY [facility] Last Admin: 08/05/17 09:10 Dose: 40 mg Prednisolone Acetate (Pred Forte 1% Opht Susp) 1 ml OS TID [facility] Last Admin: 08/05/17 13:52 Dose: 1 drop Rosuvastatin Calcium (Crestor) 5 mg PO HS [facility] Last Admin: 08/04/17 21:07 Dose: 5 mg Tamsulosin HCl (Flomax) 0.4 mg PO DAILY [facility] Last Admin: 08/05/17 09:11 Dose: 0.4 mg Tobramycin Sulfate (Tobrex 0.3% Ophth Soln) 1 drop OS BID [facility] Last Admin: 08/05/17 09:09 Dose: 1 drop Zolpidem Tartrate (Ambien) 5 mg PO HS PRN PRN Reason: Insomnia Last Admin: 08/05/17 01:10 Dose: 5 mg - Labs Labs: 08/04/17 06:56 08/04/17 06:56 PT 14.8 SECONDS (9.7-12.2) H 07/31/17 14:34 INR 1.3 07/31/17 14:34 APTT 36 SECONDS (21-34) H 07/31/17 14:34 Assessment and Plan (1) Cellulitis of scrotum Status: Acute (2) Corneal transplant status Status: Acute (3) Leblanc catheter problem Status: Acute (4) Urinary problem Status: Acute (5) Acute blood loss anemia Status: Acute (6) BPH (benign prostatic hyperplasia) Status: Acute (7) Complication, suprapubic catheter obstruction Status: Acute (8) Hematuria Status: Acute (9) Urethral stricture Status: Acute (10) Urinary retention Status: Acute
[2017-08-06] MEDS: Meropenem 500 MG in Sodium Chloride 0.9% 100 ML IVPB SCH ×3 (05:13→21:27)
[2017-08-06 06:20] LABS: HEMOGLOBIN 10.3 g/dL (12.0-18.0); MEAN CELL VOLUME 86.2 fL (80.0-94.0); MEAN CORPUSCULAR HEMOGLOBIN 29.7 pg (27.0-31.0); MEAN CORPUSCULAR HGB CONC 34.4 g/dL (33.0-37.0); MEAN PLATELET VOLUME 7.4 fL (7.2-11.7); RBC 3.46 Mil/uL (4.40-5.90); WHITE BLOOD COUNT 6.9 K/uL (4.8-10.8)
[2017-08-06 06:44] LABS: BLOOD UREA NITROGEN 10 mg/dL (9-20); CALCIUM 8.5 mg/dl (8.6-10.4); GFR AFRICAN-AMERICAN > 60; GFR NON-AFRICAN AMERICAN > 60
[2017-08-06] MEDS: Fluconazole IV 200mg/100 ml NS 100 MG in Premixed IV 1 EA IVPB SCH (09:29)
[2017-08-06] MEDS: Pantoprazole 40 mg EC Tab PO SCH (09:30)
[2017-08-06] MEDS: Tobramycin 0.3% OPHT SOLN OS SCH ×3 (09:33→20:00)
[2017-08-06] MEDS: Hydrocortisone 2.5% Rectal Cream(30 gm) PR SCH ×3 (09:34→20:02)
[2017-08-06] MEDS: PrednisoLONE 1% Opht Susp(5 ml) OS SCH ×4 (09:34→20:00)
[2017-08-06] MEDS: Linezolid 600 mg in D5W 300 ml 600 MG/300 ML BAG IVPB SCH ×2 (09:35→22:35)
[2017-08-07] MEDS: Meropenem 500 MG in Sodium Chloride 0.9% 100 ML IVPB SCH ×3 (06:15→21:19)
--- NOTE | 2017-08-07 06:31 | PCM.URO ---
Urology Progress Note - Objective Lab Studies: Reviewed (see previous dictated notes will consider surigcal consultation regarding scrotal skin meanwhile wound care for now) Lab Results Last 24 Hours: Laboratory Results - last 24 hr 08/06/17 06:11 Sodium 138 Potassium 3.9 Chloride 101 Carbon Dioxide 24 Anion Gap 17 BUN 10 Creatinine 0.7 L Est GFR ( Amer) > 60 Est GFR (Non-Af Amer) > 60 Random Glucose 100 Calcium 8.5 L Intake & Output: Intake & Output 08/06/17 08/06/17 08/07/17 06:59 18:59 06:59 Intake Total 920 1200 Output Total 2500 1200 Balance -1580 0 Intake: Intake, IV Amount 500 400 Right Antecubital 500 400 Oral 420 800 Output: Urine 2500 1200 Suprapubic 2500 1200 Urethral (Leblanc) 0 Other: # Bowel Movements 1 1 Vital Signs: Vital Signs - 24 hr 08/06/17 08/06/17 08/07/17 09:05 15:55 00:00 Temperature 98 F 98.3 F 98.6 F Pulse Rate 82 79 77 Respiratory 20 20 20 Rate Blood Pressure 117/80 123/77 144/85 O2 Sat by Pulse 99 100 98 Oximetry
[2017-08-07] MEDS: Pantoprazole 40 mg EC Tab PO SCH (10:03)
[2017-08-07] MEDS: PrednisoLONE 1% Opht Susp(5 ml) OS SCH ×4 (10:06→20:06)
[2017-08-07] MEDS: Tobramycin 0.3% OPHT SOLN OS SCH ×3 (10:06→20:07)
[2017-08-07] MEDS: Fluconazole IV 200mg/100 ml NS 100 MG in Premixed IV 1 EA IVPB SCH (10:07)
[2017-08-07] MEDS: Linezolid 600 mg in D5W 300 ml 600 MG/300 ML BAG IVPB SCH ×2 (10:07→22:27)
[2017-08-07] MEDS: Hydrocortisone 2.5% Rectal Cream(30 gm) PR SCH ×3 (10:10→20:08)
--- NOTE | 2017-08-07 15:35 | CP.PCM.PN ---
Subjective - Date & Time of Evaluation Date of Evaluation: 08/07/17 Time of Evaluation: 08:00 - Subjective Subjective: swelling decreased denies pain possible d/c on po rx if ok with dr callejas Objective - Vital Signs/Intake and Output Vital Signs (last 24 hours): Temp Pulse Resp BP Pulse Ox 98.6 F 77 20 144/85 98 08/07/17 00:00 08/07/17 00:00 08/07/17 00:00 08/07/17 00:00 08/07/17 00:00 Intake and Output: 08/07/17 08/07/17 06:59 18:59 Intake Total 1600 Output Total 2500 Balance -900 - Medications Medications: Current Medications Acetaminophen (Tylenol 325mg Tab) 650 mg PO Q6 PRN PRN Reason: Pain, Mild (1-3) Last Admin: 08/03/17 01:49 Dose: 650 mg Acetaminophen (Tylenol 325mg Tab) 650 mg PO Q6 PRN PRN Reason: Fever >100.4 F Docusate Sodium (Colace) 100 mg PO TID [facility] Last Admin: 08/07/17 14:17 Dose: 100 mg Fenofibrate (Tricor) 145 mg PO HS [facility] Last Admin: 08/06/17 22:31 Dose: 145 mg Hydrocortisone (Anusol-Hc) 1 gm [place] BID [facility] Last Admin: 08/07/17 10:10 Dose: 1 appl Meropenem 500 mg/ Sodium (Chloride) 100 mls @ 100 mls/hr IVPB Q8 [facility] Last Admin: 08/07/17 14:19 Dose: 100 mls/hr Linezolid (Zyvox 600mg/300ml D5w) 600 mg in 300 mls @ 200 mls/hr IVPB Q12 [facility] Last Admin: 08/07/17 10:07 Dose: 200 mls/hr Fluconazole 100 mg/ (Miscellaneous) 50 mls @ 100 mls/hr IVPB DAILY [facility] Last Admin: 08/07/17 10:07 Dose: 100 mls/hr Metoprolol Tartrate (Lopressor) 12.5 mg PO DAILY [facility] Last Admin: 08/07/17 10:03 Dose: 12.5 mg Pantoprazole Sodium (Protonix Ec Tab) 40 mg PO DAILY [facility] Last Admin: 08/07/17 10:03 Dose: 40 mg Prednisolone Acetate (Pred Forte 1% Opht Susp) 1 ml OS TID [facility] Last Admin: 08/07/17 14:16 Dose: 1 drop Rosuvastatin Calcium (Crestor) 5 mg PO HS [facility] Last Admin: 08/06/17 22:31 Dose: 5 mg Tamsulosin HCl (Flomax) 0.4 mg PO DAILY [facility] Last Admin: 08/07/17 10:03 Dose: 0.4 mg Tobramycin Sulfate (Tobrex 0.3% Ophth Soln) 1 drop OS BID [facility] Last Admin: 08/07/17 10:06 Dose: 1 drop Zolpidem Tartrate (Ambien) 5 mg PO HS PRN PRN Reason: Insomnia Last Admin: 08/07/17 01:00 Dose: 5 mg - Labs Labs: 08/06/17 06:11 08/06/17 06:11 PT 14.8 SECONDS (9.7-12.2) H 07/31/17 14:34 INR 1.3 07/31/17 14:34 APTT 36 SECONDS (21-34) H 07/31/17 14:34 - Constitutional Appears: Non-toxic, Chronically Ill - Head Exam Head Exam: NORMOCEPHALIC - Eye Exam Eye Exam: PERRL - ENT Exam ENT Exam: Mucous Membranes Dry - Neck Exam Neck Exam: absent: Lymphadenopathy - Respiratory Exam Respiratory Exam: Decreased Breath Sounds - Cardiovascular Exam Cardiovascular Exam: REGULAR RHYTHM - GI/Abdominal Exam GI & Abdominal Exam: Distended, Soft - Rectal Exam Rectal Exam: Deferred - Exam Exam: NORMAL INSPECTION - Extremities Exam Extremities Exam: absent: Pedal Edema - Back Exam Back Exam: absent: CVA tenderness (L), CVA tenderness (R) Assessment and Plan (1) Cellulitis of scrotum Status: Acute (2) Corneal transplant status Status: Acute (3) Leblanc catheter problem Status: Acute (4) Urinary problem Status: Acute (5) Acute blood loss anemia Status: Acute (6) BPH (benign prostatic hyperplasia) Status: Acute (7) Complication, suprapubic catheter obstruction Status: Acute (8) Hematuria Status: Acute (9) Urethral stricture Status: Acute (10) Urinary retention Status: Acute
[2017-08-08] MEDS: Meropenem 500 MG in Sodium Chloride 0.9% 100 ML IVPB SCH ×3 (05:24→21:30)
[2017-08-08] MEDS: Pantoprazole 40 mg EC Tab PO SCH (09:12)
[2017-08-08] MEDS: PrednisoLONE 1% Opht Susp(5 ml) OS SCH ×3 (09:13→17:25)
[2017-08-08] MEDS: Fluconazole IV 200mg/100 ml NS 100 MG in Premixed IV 1 EA IVPB SCH (09:13)
[2017-08-08] MEDS: Hydrocortisone 2.5% Rectal Cream(30 gm) PR SCH ×2 (09:13→17:24)
[2017-08-08] MEDS: Linezolid 600 mg in D5W 300 ml 600 MG/300 ML BAG IVPB SCH ×2 (09:13→22:10)
[2017-08-08] MEDS: Tobramycin 0.3% OPHT SOLN OS SCH ×2 (09:14→17:25)
[2017-08-08 11:39] LABS: BLOOD UREA NITROGEN 12 mg/dL (9-20); CALCIUM 8.9 mg/dl (8.6-10.4); GFR AFRICAN-AMERICAN > 60; GFR NON-AFRICAN AMERICAN > 60
[2017-08-08 11:40] LABS: BASO # 0.1 K/uL (0.0-0.2); BASO % 1.2 % (0.0-2.0); EOS # 0.4 K/uL (0.0-0.7); EOS % 6.8 % (0.0-4.0); HEMOGLOBIN 10.1 g/dL (12.0-18.0); LYMPH # 1.1 K/uL (1.0-4.3); LYMPH % 20.9 % (20.0-40.0); MEAN CELL VOLUME 86.3 fL (80.0-94.0); MEAN CORPUSCULAR HEMOGLOBIN 29.5 pg (27.0-31.0); MEAN CORPUSCULAR HGB CONC 34.2 g/dL (33.0-37.0); MEAN PLATELET VOLUME 7.3 fL (7.2-11.7); MONO # 0.5 K/uL (0.0-0.8); MONO % 9.4 % (0.0-10.0); NEUT # 3.3 K/uL (1.8-7.0); NEUT % 61.7 % (50.0-75.0); NRBC % 0.1 % (0.0-2.0); RBC 3.42 Mil/uL (4.40-5.90); WHITE BLOOD COUNT 5.4 K/uL (4.8-10.8)
--- NOTE | 2017-08-08 11:46 | CP.PCM.PN ---
Subjective - Date & Time of Evaluation Date of Evaluation: 08/08/17 Time of Evaluation: 08:00 - Subjective Subjective: swelling decreased denies pain possible d/c on po rx if ok with dr callejas Objective - Vital Signs/Intake and Output Vital Signs (last 24 hours): Temp Pulse Resp BP Pulse Ox 97.6 F 88 20 126/81 97 08/08/17 08:00 08/08/17 08:00 08/08/17 08:00 08/08/17 08:00 08/08/17 08:00 Intake and Output: 08/08/17 08/08/17 06:59 18:59 Intake Total 1120 Output Total 3050 Balance -1930 - Medications Medications: Current Medications Acetaminophen (Tylenol 325mg Tab) 650 mg PO Q6 PRN PRN Reason: Pain, Mild (1-3) Last Admin: 08/03/17 01:49 Dose: 650 mg Acetaminophen (Tylenol 325mg Tab) 650 mg PO Q6 PRN PRN Reason: Fever >100.4 F Docusate Sodium (Colace) 100 mg PO TID [facility] Last Admin: 08/08/17 09:12 Dose: 100 mg Fenofibrate (Tricor) 145 mg PO HS [facility] Last Admin: 08/07/17 21:20 Dose: 145 mg Hydrocortisone (Anusol-Hc) 1 gm [place] BID [facility] Last Admin: 08/08/17 09:13 Dose: Not Given Meropenem 500 mg/ Sodium (Chloride) 100 mls @ 100 mls/hr IVPB Q8 [facility] Last Admin: 08/08/17 05:24 Dose: Not Given Linezolid (Zyvox 600mg/300ml D5w) 600 mg in 300 mls @ 200 mls/hr IVPB Q12 [facility] Last Admin: 08/08/17 09:13 Dose: Not Given Fluconazole 100 mg/ (Miscellaneous) 50 mls @ 100 mls/hr IVPB DAILY [facility] Last Admin: 08/08/17 09:13 Dose: Not Given Metoprolol Tartrate (Lopressor) 12.5 mg PO DAILY [facility] Last Admin: 08/08/17 09:12 Dose: 12.5 mg Pantoprazole Sodium (Protonix Ec Tab) 40 mg PO DAILY [facility] Last Admin: 08/08/17 09:12 Dose: 40 mg Prednisolone Acetate (Pred Forte 1% Opht Susp) 1 ml OS TID [facility] Last Admin: 08/08/17 09:13 Dose: 1 drop Rosuvastatin Calcium (Crestor) 5 mg PO HS [facility] Last Admin: 08/07/17 21:20 Dose: 5 mg Tamsulosin HCl (Flomax) 0.4 mg PO DAILY [facility] Last Admin: 08/08/17 09:12 Dose: 0.4 mg Tobramycin Sulfate (Tobrex 0.3% Ophth Soln) 1 drop OS BID [facility] Last Admin: 08/08/17 09:14 Dose: 1 drop Zolpidem Tartrate (Ambien) 5 mg PO HS PRN PRN Reason: Insomnia Last Admin: 08/08/17 01:36 Dose: 5 mg - Labs Labs: 08/06/17 06:11 08/08/17 11:17 PT 14.8 SECONDS (9.7-12.2) H 07/31/17 14:34 INR 1.3 07/31/17 14:34 APTT 36 SECONDS (21-34) H 07/31/17 14:34 - Constitutional Appears: Non-toxic, Chronically Ill - Head Exam Head Exam: NORMOCEPHALIC - Eye Exam Eye Exam: PERRL - ENT Exam ENT Exam: Mucous Membranes Dry - Neck Exam Neck Exam: absent: Lymphadenopathy - Respiratory Exam Respiratory Exam: Decreased Breath Sounds - Cardiovascular Exam Cardiovascular Exam: REGULAR RHYTHM - GI/Abdominal Exam GI & Abdominal Exam: Distended - Rectal Exam Rectal Exam: Deferred Assessment and Plan (1) Cellulitis of scrotum Status: Acute (2) Corneal transplant status Status: Acute (3) Leblanc catheter problem Status: Acute (4) Urinary problem Status: Acute (5) Acute blood loss anemia Status: Acute (6) BPH (benign prostatic hyperplasia) Status: Acute (7) Complication, suprapubic catheter obstruction Status: Acute (8) Hematuria Status: Acute (9) Urethral stricture Status: Acute (10) Urinary retention Status: Acute - Assessment and Plan (Free Text) Assessment: swelling decreased denies pain possible d/c on po rx if ok with dr callejas
--- NOTE | 2017-08-08 15:47 | PCM.URO ---
Urology Progress Note - Objective Lab Studies: Reviewed (above noted from gu standpoint if pt is cleared medically and has wound care aligned pt is ok for discharge with the caveat of quick return as needed) Lab Results Last 24 Hours: Laboratory Results - last 24 hr 08/08/17 08/08/17 11:17 11:17 WBC 5.4 RBC 3.42 L Hgb 10.1 L Hct 29.5 L MCV 86.3 MCH 29.5 MCHC 34.2 RDW 14.0 Plt Count 442 H MPV 7.3 Neut % (Auto) 61.7 Lymph % (Auto) 20.9 Greer % (Auto) 9.4 Eos % (Auto) 6.8 H Baso % (Auto) 1.2 Neut # (Auto) 3.3 Lymph # (Auto) 1.1 Greer # (Auto) 0.5 Eos # (Auto) 0.4 Baso # (Auto) 0.1 Sodium 137 Potassium 4.0 Chloride 100 Carbon Dioxide 28 Anion Gap 13 BUN 12 Creatinine 0.8 Est GFR ( Amer) > 60 Est GFR (Non-Af Amer) > 60 Random Glucose 91 Calcium 8.9 Intake & Output: Intake & Output 08/07/17 08/08/17 08/08/17 18:59 06:59 18:59 Intake Total 1120 Output Total 3050 Balance -1930 Intake: Intake, IV Amount 400 Right Antecubital 400 Oral 720 Output: Urine 3050 Suprapubic 3050 Urethral (Leblanc) 0 Other: # Bowel Movements 0 Vital Signs: Vital Signs - 24 hr 08/07/17 08/08/17 08/08/17 16:00 00:00 08:00 Temperature 98.3 F 98.6 F 97.6 F Pulse Rate 80 83 88 Respiratory 20 20 20 Rate Blood Pressure 129/79 149/93 H 126/81 O2 Sat by Pulse 100 98 97 Oximetry
--- NOTE | 2017-08-08 22:50 | PN ---
DATE: 08/08/2017. SUBJECTIVE: See the previously dictated progress notes and consult notes. Patient well-known to me. He has a cystostomy tube and Leblanc catheter via the urethra. He also has a foreign body in his urethra. He had some scrotal edema and tissue that looked poor, but it is now healing remarkably well. PAST MEDICAL AND SURGICAL HISTORY: No other changes. REVIEW OF SYSTEMS: As listed above. So the wound is healing nicely. DIAGNOSES: 1. Urinary retention. 2. Urethral stricture disease. 3. Some kind of condition of recurrent infection and scar tissue. Some kind of maybe connective tissue disorder. See the plan listed below. PLAN: He is now doing much better. As mentioned in previous notes again this patient underwent multiple procedures, he had his cardiac surgery, he had his eye surgery, he has had his prostatic surgery, all of have been difficult in terms of wound healing . From an Urology standpoint, at this point he is stable, he has got an indwelling Leblanc, he has got an indwelling suprapubic catheter, all draining well. We will discuss once I have discussed with him trying to find a good time to go back and explore his urethra. We will have to make a plan when he is not infected. So the plan for now is to maintain Leblanc, suprapubic and then eventually discharge home and outpatient follow up. Salvador Tristan MD
[2017-08-09] MEDS: Meropenem 500 MG in Sodium Chloride 0.9% 100 ML IVPB SCH ×2 (06:00→14:30)
[2017-08-09] MEDS: Linezolid 600 mg in D5W 300 ml 600 MG/300 ML BAG IVPB SCH (10:41)
[2017-08-09] MEDS: Fluconazole IV 200mg/100 ml NS 100 MG in Premixed IV 1 EA IVPB SCH ×2 (10:41→10:58)
[2017-08-09] MEDS: Tobramycin 0.3% OPHT SOLN OS SCH (10:59)
[2017-08-09] MEDS: Pantoprazole 40 mg EC Tab PO SCH (10:59)
[2017-08-09] MEDS: PrednisoLONE 1% Opht Susp(5 ml) OS SCH ×2 (10:59→14:30)
[2017-08-09] MEDS: Hydrocortisone 2.5% Rectal Cream(30 gm) PR SCH (11:00)
--- NOTE | 2017-08-09 11:36 | CP.PCM.PN ---
Subjective - Date & Time of Evaluation Date of Evaluation: 08/09/17 Time of Evaluation: 07:00 - Subjective Subjective: afebrile wounds same iv rx renewed Objective - Vital Signs/Intake and Output Vital Signs (last 24 hours): Temp Pulse Resp BP Pulse Ox 97.3 F L 81 20 134/89 97 08/08/17 15:15 08/08/17 15:15 08/08/17 15:15 08/08/17 15:15 08/08/17 15:15 Intake and Output: 08/09/17 08/09/17 06:59 18:59 Intake Total 940 Output Total 2280 Balance -1340 - Medications Medications: Current Medications Acetaminophen (Tylenol 325mg Tab) 650 mg PO Q6 PRN PRN Reason: Pain, Mild (1-3) Last Admin: 08/03/17 01:49 Dose: 650 mg Acetaminophen (Tylenol 325mg Tab) 650 mg PO Q6 PRN PRN Reason: Fever >100.4 F Docusate Sodium (Colace) 100 mg PO TID [facility] Last Admin: 08/09/17 11:01 Dose: 100 mg Fenofibrate (Tricor) 145 mg PO HS [facility] Last Admin: 08/08/17 22:12 Dose: 145 mg Hydrocortisone (Anusol-Hc) 1 gm [place] BID [facility] Last Admin: 08/09/17 11:00 Dose: 1 appl Meropenem 500 mg/ Sodium (Chloride) 100 mls @ 100 mls/hr IVPB Q8 [facility] Last Admin: 08/09/17 06:00 Dose: Not Given Linezolid (Zyvox 600mg/300ml D5w) 600 mg in 300 mls @ 200 mls/hr IVPB Q12 [facility] Last Admin: 08/09/17 10:41 Dose: Not Given Fluconazole 100 mg/ (Miscellaneous) 50 mls @ 100 mls/hr IVPB DAILY [facility] Last Admin: 08/09/17 10:58 Dose: 100 mls/hr Metoprolol Tartrate (Lopressor) 12.5 mg PO DAILY [facility] Last Admin: 08/09/17 10:58 Dose: 12.5 mg Pantoprazole Sodium (Protonix Ec Tab) 40 mg PO DAILY [facility] Last Admin: 08/09/17 10:59 Dose: 40 mg Prednisolone Acetate (Pred Forte 1% Opht Susp) 1 ml OS TID [facility] Last Admin: 08/09/17 10:59 Dose: 1 drop Rosuvastatin Calcium (Crestor) 5 mg PO HS [facility] Last Admin: 08/08/17 22:08 Dose: 5 mg Tamsulosin HCl (Flomax) 0.4 mg PO DAILY [facility] Last Admin: 08/09/17 10:59 Dose: 0.4 mg Tobramycin Sulfate (Tobrex 0.3% Ophth Soln) 1 drop OS BID [facility] Last Admin: 08/09/17 10:59 Dose: 1 drop Zolpidem Tartrate (Ambien) 5 mg PO HS PRN PRN Reason: Insomnia Last Admin: 08/09/17 00:57 Dose: 5 mg - Labs Labs: 08/08/17 11:17 08/08/17 11:17 PT 14.8 SECONDS (9.7-12.2) H 07/31/17 14:34 INR 1.3 07/31/17 14:34 APTT 36 SECONDS (21-34) H 07/31/17 14:34 - Constitutional Appears: Non-toxic, Chronically Ill - Head Exam Head Exam: NORMOCEPHALIC - Eye Exam Eye Exam: PERRL - ENT Exam ENT Exam: Mucous Membranes Dry - Neck Exam Neck Exam: absent: Lymphadenopathy - Respiratory Exam Respiratory Exam: Decreased Breath Sounds - Cardiovascular Exam Cardiovascular Exam: REGULAR RHYTHM - GI/Abdominal Exam GI & Abdominal Exam: Distended, Soft - Rectal Exam Rectal Exam: Deferred - Exam Exam: Scrotal Swelling - Extremities Exam Extremities Exam: absent: Pedal Edema - Back Exam Back Exam: absent: CVA tenderness (L), CVA tenderness (R) - Neurological Exam Neurological Exam: Alert, Awake, Oriented x3 Assessment and Plan (1) Cellulitis of scrotum Status: Acute (2) Corneal transplant status Status: Acute (3) Leblanc catheter problem Status: Acute (4) Urinary problem Status: Acute (5) Acute blood loss anemia Status: Acute (6) BPH (benign prostatic hyperplasia) Status: Acute (7) Complication, suprapubic catheter obstruction Status: Acute (8) Hematuria Status: Acute (9) Urethral stricture Status: Acute (10) Urinary retention Status: Acute
[2017-08-09 13:18] VITALS: BP 139/88; PULSE 80; TEMP 98.3; O2SAT 95
--- NOTE | 2017-08-10 18:02 | CP.PCM.PN ---
Subjective - Date & Time of Evaluation Date of Evaluation: 08/06/17 Time of Evaluation: 08:05 - Subjective Subjective: still w/ /scrotal swelling no chest pain no sob Objective - Vital Signs/Intake and Output Vital Signs (last 24 hours): Temp Pulse Resp BP Pulse Ox 98.3 F 80 20 139/88 95 08/09/17 08:00 08/09/17 08:00 08/09/17 08:00 08/09/17 08:00 08/09/17 08:00 - Labs Labs: 08/08/17 11:17 08/08/17 11:17 PT 14.8 SECONDS (9.7-12.2) H 07/31/17 14:34 INR 1.3 07/31/17 14:34 APTT 36 SECONDS (21-34) H 07/31/17 14:34 - Constitutional Appears: Non-toxic - Head Exam Head Exam: NORMAL INSPECTION - Eye Exam Eye Exam: absent: Scleral icterus - Neck Exam Neck Exam: Full ROM - Respiratory Exam Respiratory Exam: Clear to Ausculation Bilateral - Cardiovascular Exam Cardiovascular Exam: REGULAR RHYTHM - GI/Abdominal Exam GI & Abdominal Exam: Soft - Exam Exam: Scrotal Swelling, Testicular Tenderness - Extremities Exam Extremities Exam: absent: Pedal Edema Assessment and Plan - Assessment and Plan (Free Text) Assessment: CAD, stable Scrotal infection HTN T2dm Plan: Cont present abtx. Cont meds
--- NOTE | 2017-08-10 18:07 | CP.PCM.PN ---
Subjective - Date & Time of Evaluation Date of Evaluation: 08/07/17 Time of Evaluation: 10:10 - Subjective Subjective: less scrotal swelling less painful no chest pain constipated Objective - Vital Signs/Intake and Output Vital Signs (last 24 hours): Temp Pulse Resp BP Pulse Ox 98.3 F 80 20 139/88 95 08/09/17 08:00 08/09/17 08:00 08/09/17 08:00 08/09/17 08:00 08/09/17 08:00 - Labs Labs: 08/08/17 11:17 08/08/17 11:17 PT 14.8 SECONDS (9.7-12.2) H 07/31/17 14:34 INR 1.3 07/31/17 14:34 APTT 36 SECONDS (21-34) H 07/31/17 14:34 - Constitutional Appears: No Acute Distress - Head Exam Head Exam: ATRAUMATIC - Eye Exam Eye Exam: absent: Scleral icterus - Neck Exam Neck Exam: Full ROM - Respiratory Exam Respiratory Exam: Decreased Breath Sounds - Cardiovascular Exam Cardiovascular Exam: REGULAR RHYTHM - GI/Abdominal Exam GI & Abdominal Exam: Soft - Exam Exam: Scrotal Swelling, Testicular Tenderness - Extremities Exam Extremities Exam: Pedal Edema - Neurological Exam Neurological Exam: Alert Assessment and Plan - Assessment and Plan (Free Text) Assessment: Scrotal Cellulitis w/ swelling CAD T2dm HTN Plan: Cont Abtx Enema prn Pain meds prn
--- NOTE | 2017-08-10 18:11 | CP.PCM.PN ---
Subjective - Date & Time of Evaluation Date of Evaluation: 08/08/17 Time of Evaluation: 07:35 - Subjective Subjective: less swelling less pain no sob no chest pain Objective - Vital Signs/Intake and Output Vital Signs (last 24 hours): Temp Pulse Resp BP Pulse Ox 98.3 F 80 20 139/88 95 08/09/17 08:00 08/09/17 08:00 08/09/17 08:00 08/09/17 08:00 08/09/17 08:00 - Labs Labs: 08/08/17 11:17 08/08/17 11:17 PT 14.8 SECONDS (9.7-12.2) H 07/31/17 14:34 INR 1.3 07/31/17 14:34 APTT 36 SECONDS (21-34) H 07/31/17 14:34 - Constitutional Appears: Non-toxic - Eye Exam Eye Exam: absent: Scleral icterus - Exam Exam: Scrotal Swelling, Testicular Tenderness - Extremities Exam Extremities Exam: absent: Pedal Edema Assessment and Plan - Assessment and Plan (Free Text) Assessment: Scrotal cellulitis w/ swelling CAD, stable T2dm Chronic constipation Plan: Cont abtx ok to dc from cardiac standpoint.
--- NOTE | 2017-08-10 18:17 | CP.PCM.PN ---
Subjective - Date & Time of Evaluation Date of Evaluation: 08/09/17 Time of Evaluation: 08:00 - Subjective Subjective: doing better afebrile minimal scrotal pain and swelling Objective - Vital Signs/Intake and Output Vital Signs (last 24 hours): Temp Pulse Resp BP Pulse Ox 98.3 F 80 20 139/88 95 08/09/17 08:00 08/09/17 08:00 08/09/17 08:00 08/09/17 08:00 08/09/17 08:00 - Labs Labs: 08/08/17 11:17 08/08/17 11:17 PT 14.8 SECONDS (9.7-12.2) H 07/31/17 14:34 INR 1.3 07/31/17 14:34 APTT 36 SECONDS (21-34) H 07/31/17 14:34 - Constitutional Appears: Non-toxic - Neck Exam Neck Exam: Full ROM - Respiratory Exam Respiratory Exam: Clear to Ausculation Bilateral - Cardiovascular Exam Cardiovascular Exam: REGULAR RHYTHM - Exam Exam: Scrotal Swelling, Testicular Tenderness - Extremities Exam Extremities Exam: absent: Pedal Edema Assessment and Plan - Assessment and Plan (Free Text) Assessment: Scrotal infection CAD T2dm HTN Plan: Ok for dc from cardiac standpoint
== END 2017-08-09 14:39 | disposition home or self-care (01) | DRG 699 ==
LOC: C.ER 13:26 → C.9E 14:47 → C.5S 08-01 17:56 → C.6T 08-01 22:16 → C.3T 08-02 11:23
PROVIDERS: ADMIT Internal Medicine; ATTEND Internal Medicine
DX: T83.098A Other mechanical complication of other urinary catheter, initial encounter (principal); D62 Acute posthemorrhagic anemia; N49.2 Inflammatory disorders of scrotum; E11.9 Type 2 diabetes mellitus without complications; E78.5 Hyperlipidemia, unspecified; I25.10 Atherosclerotic heart disease of native coronary artery without angina pectoris; K59.09 Other constipation; N35.9 Urethral stricture, unspecified; N40.1 Benign prostatic hyperplasia with lower urinary tract symptoms; I10 Essential (primary) hypertension; R33.8 Other retention of urine; Z94.7 Corneal transplant status; Z95.1 Presence of aortocoronary bypass graft

== ENCOUNTER 2017-08-25 10:37 | Day surgery (SDC) | payer MEDICARE, MEDICAID ==
[2017-08-25] MEDS ORDERED: Iohexol 240 200 ML ONE (16:50)
[2017-08-25] MEDS ORDERED: cefTRIAXone 1 gm 1 GM/100 ML BAG IVPB ONE (16:51)
[2017-08-25] MEDS ORDERED: Lidocaine 2% Jelly (Uro-Jet) ONE (16:51)
[2017-08-25] MEDS ORDERED: Propofol 10 mg/ml Inj (20 ML) ONE (17:05)
[2017-08-25] MEDS ORDERED: Midazolam 2 MG/2 ML VIAL ONE (17:05)
[2017-08-25 18:13] VITALS: TEMP 98.6; O2SAT 100
[2017-08-25 18:20] VITALS: BP 148/88; PULSE 78; RESP 20
--- NOTE | 2017-08-26 14:42 | RAD ---
PROCEDURE: Intraoperative Fluoroscopy. HISTORY: BECK CATH SWAP, R/O FB FINDINGS: Fluoroscopic assistance was provided for Beck catheter exchange. Please refer to the operative report from SALEEM Mena, , MD CRISTIAN. 4.5 minutes fluoro time employed. Total exam DLP: (mGy) 0.4427
--- NOTE | 2017-09-01 18:12 | HP ---
UROLOGY HISTORY AND PHYSICAL REASON FOR ADMISSION: Treatment of urinary retention and urethral stricture. HISTORY OF PRESENT ILLNESS: See multiple previous notes. The patient has been familiar with me for couple of years now already. Came to me from another urologist. He has severe urethral stricture disease. He has an underlying connective tissue disorder that causes scarring and infection. His sternotomy incision is somewhat keloid. He has had about 10 operations for a cataract operation. From urology standpoint, he currently has a severe urethral stricture that after almost two years we were able to make an incision and do an internal optical urethrotomy. During that time, see the previously dictated notes, it was cutting through cement and the blade is broken. I have explained this to the patient. We were thinking even of trying to remove this. Although after talking to the patient, he said please just change the catheters today. He is also healing from his scrotum that was very swollen from the previous procedure, and in fact, see the below physical examination. He has like a black eschar, does not appear to be infected. See my description below and my plan and recommendation below. It seems to be stable. It is not causing fever. It does not have a foul odor. See below. But definitely after discussion with the patient today, we are just going to change the catheter, we are going to dilate the urethra gently. The original plan to get the urethra up to about 20-Gabonese and then eventually try to go from there. I have mentioned many times previously I am trying to get the patient to another surgeon who is a reconstruction specialist to see if they have any better ideas. I was mostly recommending to the patient to have just live with the cystostomy tube which we were changing, even that changes with difficulty, even the cystostomy tube has been placed and working does not change well. He has a [place] tree bladder. It predates him through the many previously notes. He does not see other doctors, initially was for insurance reason and anxiety reasons and travel reasons. Very pleasant but extremely limited gentleman and so we are doing our best to assist him. At this point in time, I have explained to the patient today's plan. I explained eventually he may need that blade removed. I also though likened to him an explanation that it could be like a bullet that sometimes not causing any damage or problems, we things alone, we have to see as time goes on. He has had no problems in the interim. He is here today for change in both cystostomy tube and Leblanc catheter with a little dilation. PAST MEDICAL AND SURGICAL HISTORY: Listed in the chart. As mentioned above, he has had previous cataract surgery, he has had sternotomy and bypass. He has had multiple doctors overtime. I believe currently his doctor is Dr. Vicente, his medical doctor. MEDICATIONS: See the chart. ALLERGIES: NONE. SOCIAL HISTORY: He lives alone. He has a brother that has a urologist. Very often he has so he could care of his phone, so he can take care of some bills. He is very pleasant person but sometimes it is very difficult to do all the schedules properly but we are working closely together. I had multiple conversations with the patient in between procedures with phone calls and trying to help him as best as possible. REVIEW OF SYSTEMS: As listed above. No weight loss, chest pain or shortness of breath, but just multiple medical issues. PHYSICAL EXAMINATION: GENERAL: As mentioned,well-nourished male, in no apparent distress. VITAL SIGNS: Noted. HEENT: His eyes are healing. The remainder of the physical exam as mentioned. NECK: No cervical or axillary lymphadenopathy. He has keloids. He has scarring on skin tissue throughout his body including the lower extremities. ABDOMEN: Relatively soft. GENITOURINARY: We are going to describe the cystotomy tube. It is extremely encrusted with abnormal tissue. His Leblanc catheter via his penis has same thing. There is white discharge from the site. Not infected, just abnormal white fissure. The left hemiscrotum is normal. The right hemiscrotum is like an eschar of skin. There is no odor to it. It is a . See my below plan. It is limited to just that area, right around the right hemiscrotum. I took picture of it and saved. The remaining physical examination is unremarkable. DIAGNOSES: Urinary retention, urethral stricture disease, recurrent infections throughout the body. PLAN: As follows, this is a very pleasant gentleman and had not seen multiple doctors. My request to him is to try to see if he can get the reconstruction person but he has difficulty from various reasons most often socially, initially was insurance related, and he had to need to have insurance or he had insurance that was not taken by many people. At this point, we have discussed the options. We are still trying to get him to another urologist. But in the interim while awaiting for this to happen, we are planning for a cystoscope. We are not going to do cystoscope today. Today, we just going to change the catheter. The patient was asked, and we are going to certainly comply with his request to just go gentle and try to change the catheter as quickly as possible and then further plans will follow. So the plans for today are as follows. 1. Antibiotics. 2. We are going to change the cystostomy tube. 3. We are going to change the Leblanc catheter. We are going to make a little dilation, but we are going to even explore the urethra. I am going to take multiple pictures looking for the blade, but we are not going to explore his urethra at this point. Right now he is stable, doing well and he is looking for less than more. So, further plans will follow. Salvador Tristan MD
--- NOTE | 2017-09-19 01:23 | HP ---
REASON FOR ADMISSION: For a surgery to change his cystostomy tube and the Leblanc catheter. HISTORY OF PRESENT ILLNESS: A very pleasant gentleman I know for quite some time, see many of the previously dictated notes. Most recently, after more than a year and a half, may be two years of him having urethral stricture disease, we were finally able to do an internal optical urethrotomy. I have been discussing with the patient and recommending second opinion. See the notes. Today, he asked me just to change the catheter. I explained that also we would like to investigate, because he seems to have a foreign body that is the blade of the knife, which I saw it broken and I know it is there. I recommended trying to remove it, but he does not, and right now it is stable. I explained to the patient that it is like a bullet that sometimes we just can leave it in place if it is not bothering him, which right now is not. It is not causing any bleeding or problems or any signs of infection. So, for now, we are going to not pursue it, but we do recommend at some point that we consider getting it out. PAST MEDICAL HISTORY AND SURGICAL HISTORY: As all listed in the chart. No other changes. The patient has been stable. He has had cardiac surgery before, and in fact, he has a significant scar from this, a keloid. He has had about 8 eye operations for a cataract. I am not exaggerating in any way. MEDICATIONS: See the chart. ALLERGIES: NONE. His medical doctor is Dr. Vicente. In the interim, he happened to have seen also Dr. Prince because of insurance reasons, but mostly he thinks he sees Dr. Vicente. PHYSICAL EXAMINATION: GENERAL: A well-nourished male in no apparent distress. VITAL SIGNS: Within normal limits. LUNGS: Clear. ABDOMEN: Soft and nontender. HEART: His chest wall is noted to have scar tissue. He has multiple scars. His abdominal wall is significant to me. He has a cystostomy tube that is in place, but it is extremely, extremely encrusted, in fact, I took pictures. His scrotal exam is very significantly black, there is an eschar. There are no signs of crepitus. There are no signs of gas. There are no signs of infection, but it is just a blackened area. It is about where it was before. If anything, it has improved ideally enough from his previous admission. See the notes dictated there, and to my record, it generally looks much better. He has an indwelling Leblanc catheter. Again, he has a tremendous amount of encrustation. He just does not have the ability to keep it perfectly clean. DIAGNOSES: Urinary retention; urethral stricture disease; keloid formation, former; multiple infections; and eschar in the right hemiscrotum. PLAN: The plan is as follows. I discussed the options with the patient at length. Our plan is as follows: 1. We are going to plan for a removal of an old Leblanc catheter and insertion of a new Leblanc catheter, again plan is to remove the cystostomy tube and insert a new one. We will plan for a cystogram. I told the patient I am going to try gently, while he is sedated, to see if I can feel the blade and see if it is feels amenable to retreatment to removal, but if not, we are not going to push it today. I do recommend that we consider it, but not today. He wants to just be as gentle as possible. He did have a roughened course last time. I explained all of these to the patient in great length in detail. The patient is extremely pleasant about the entire matter, it is just a difficult management situation. I have encouraged the patient for so long to try to seek out other care, has issues of anxiety, travel, insurance. Combining all that together, it makes it very difficult, but again he is extremely pleasant about the whole thing and we are going to continue to provide our best care. Salvador Tristan MD
--- NOTE | 2017-09-19 01:36 | OP ---
PROCEDURE DATE: PREOPERATIVE DIAGNOSES: Urinary retention, voiding dysfunction, urethral stricture disease, scar formation, [place] tree bladder and foreign body in the urethra, periurethral tissue. POSTOPERATIVE DIAGNOSES: Urinary retention, voiding dysfunction, urethral stricture disease, scar formation, [place] tree bladder and foreign body in the urethra, periurethral tissue. PROCEDURE: Removal of an old Leblanc catheter and insertion of a new Leblanc catheter, removal of cystostomy tube and insertion of a new cystostomy tube and a cystogram. COMPLICATIONS: There were no complications. FINDINGS: We were able to change the catheter and actually get a larger catheter in via the urethra. We were able to insert a new Leblanc via the cystostomy tube and we could not really feel the urethral blade; although, I can see it by x-ray. There is definitely something there, a foreign object, and there were no complications. INDICATIONS: See the history and physical for the details. A very pleasant gentleman here for the above procedure. Again, I am still trying to get him to another urologist, but I am looking for the trauma specialist, perhaps a reconstruction expert, that is really what I would like, may be a reconstruction person. After discussing all the options with the patient, he is here now for the above procedure. He requested that I do not cause as much swelling and edema as before. I do want to mention that there is an eschar on the outside of the right hemiscrotum, but it feels to be much better than previously noted, and for today we are staying away from it, but I am very concerned about it, but I think it is just going to flake off by itself. DESCRIPTION OF PROCEDURE: After obtaining informed consent, the patient was placed on the operating table. Routine monitor was placed. Timeout was called to confirm the patient and positioning. We removed the old Leblanc catheter and inserted a new one. I do want to mention that in the KUB, I could see the foreign body with the lateral oblique, but I could not feel it perfectly and so I did not want to push it at the patient's request, and also the patient is stable, I just want him to get better and see what happens with the scrotal wall. The procedure continued. We removed the old Leblanc and inserted a larger Leblanc via urethra. We did the same thing for cystostomy tube and then we did our x-ray. Again the [place] tree bladder was noted within the urinary bladder. The patient tolerated the procedure well without complications. ADDENDUM: We are going to plan to continue to do the same thing. I am still trying to ask the patient to seek out a second opinion. He told me he will see his brother's urologist, but so far this has not happened and I would really recommend a fellowship trained reconstruction person and had been trying to get this to the patient. Salvador Tristan MD
== END 2017-08-25 17:08 | disposition home or self-care (01) ==
LOC: C.SDS 10:37
PROVIDERS: ATTEND Urology
DX: Z46.6 Encounter for fitting and adjustment of urinary device (principal); R31.9 Hematuria, unspecified; R33.9 Retention of urine, unspecified; N31.8 Other neuromuscular dysfunction of bladder; N35.9 Urethral stricture, unspecified; T19.0XXA Foreign body in urethra, initial encounter; L91.0 Hypertrophic scar
CPT/HCPCS: 51705; A4358; J0696

== ENCOUNTER 2017-10-06 10:47 | Day surgery (SDC) | payer MEDICARE ==
[2017-10-06] MEDS ORDERED: cefTRIAXone IV 1 gm in Dextros 50 ML IVPB ONE (13:05)
[2017-10-06] MEDS ORDERED: Lidocaine 2% Jelly (Uro-Jet) ONE (13:06)
[2017-10-06] MEDS ORDERED: Iohexol 240 200 ML ONE (13:25)
[2017-10-06] MEDS ORDERED: Midazolam 2 MG/2 ML VIAL ONE (13:31)
[2017-10-06] MEDS ORDERED: Propofol 10 mg/ml Inj (20 ML) ONE (13:31)
[2017-10-06] MEDS ORDERED: Lactated Ringer's 1,000 ML IV ONE (14:03)
[2017-10-06] MEDS ORDERED: HYDROmorphone 0.5 mg/0.5 ml ISec IVP PRN (14:06)
[2017-10-06 15:19] VITALS: RESP 18; O2SAT 100
[2017-10-06 17:04] VITALS: BP 140/70; PULSE 65; TEMP 97.8
--- NOTE | 2017-10-17 10:19 | RAD ---
PROCEDURE: Intraoperative fluoroscopy HISTORY: Change of suprapubic cystostomy catheter COMPARISON: Not available TECHNIQUE: Fluoroscopy was provided for cystography and change of suprapubic cystostomy catheter. Total time of fluoroscopy was 6.0 seconds. FINDINGS: Five fluoroscopic spot films are submitted. IMPRESSION: Fluoroscopy provided
--- NOTE | 2017-10-24 09:02 | OP ---
PROCEDURE DATE: 10/06/2017 PREOPERATIVE DIAGNOSES: Urinary retention, voiding dysfunction, urethral stricture disease, severe underlying ____ dysfunction with connective tissue order of some sort. Hematuria. Foreign body. POSTOPERATIVE DIAGNOSES: Urinary retention, voiding dysfunction, urethral stricture disease, severe underlying ____ dysfunction with connective tissue order of some sort. Hematuria. Foreign body. PROCEDURE: Removal of Leblanc catheter. Insertion of a new Leblanc catheter. Removal of suprapubic catheter and insertion of a new one and a cystogram. SURGEON: Salvador Tristan MD. COMPLICATIONS: No complications. INDICATIONS: See history and physical for further details. The patient is a pleasant gentleman. PROCEDURE: The patient specifically asked me not to do too much in the way of manipulation, and therefore we did not attempt today to remove the foreign body. See below plans, but it still does note the findings today. 1. We were able to change both catheters. The other finding of course is well encrusted. Each time I change, the patient just has poor hygiene, but we were able to remove that and clean them up. DESCRIPTION OF PROCEDURE: After obtaining informed consent, the patient was placed on the table. Routine monitors were placed. Time-out was called to confirm the patient. Antibiotic prophylaxis. I do want to mention also his scrotal exam is much, much, much improved. Previous black and eschars are now much improved. PROCEDURE: After obtaining informed consent, the patient was placed on the table. Routine monitors were placed. Time-out was called to confirm the patient positioning. We now positioned the patient. We removed the old Leblanc and inserted a new one. We removed the old suprapubic catheter and insert a new one again. Actually we scrubbed his abdomen. Overall, the patient tolerated the procedure well without any complication. ADDENDUM We are planning to work on the patient's cystotomy tube and we will dilate the urethra. allow it further. Now, he does not want anything further. Salvador Tristan MD
--- NOTE | 2017-10-24 09:06 | HP ---
Mr. Hines is a very gentleman, here now for further testing and treatments. He mostly change the stent. He does not want actually anything more than this for today. HISTORY: This is a very pleasant gentleman who I know quite well. He has urethral stricture. After much effort at work with the patient, finally we were able to get a Leblanc catheter via the urethra. Seen many previously dictated notes. What we also noted is the presence of the patient having tremendous amount of scar tissue. Today, he is here to remove and exchange the catheters. We have discussed other options for today, he does not want much further. PAST MEDICAL AND SURGICAL HISTORY: See below plans because this is a concern. REVIEW OF SYSTEMS: Listed above. PAST MEDICAL AND SURGICAL HISTORY: As listed, he has had multiple eye surgeries, again, such as for his cataract, he had maybe several procedures. He has multiple scars from his chest, from his cardiac surgery. I inherited him from another urologist. We have been through a lot together, Mr. Hines and I. I continue to encourage the patient to try to remove the urethral lesion, but right now, I have explained the patient as a bullet that sometimes does not need to remove that not causing him trouble. In the future I am planning to try to get him to a reconstruction surgeon. This is somewhat difficult for the patient for social reasons, travel reasons and other . We are now working with the patient and today we are just going to change the tubes. He is requesting minimal treatments. PAST MEDICAL AND SURGICAL HISTORY: All otherwise unchanged. The medications, physical exam, everything also unchanged. Review of systems listed above. PHYSICAL EXAMINATION: GENERAL: A well-nourished male in no apparent distress. VITAL SIGNS: Within normal limits. LUNGS: . ABDOMEN: Soft. SKIN: The scars are noted. GENITOURINARY DIAGNOSES: Urinary retention; hematuria, urethral stricture disease, and a retained foreign body. PLAN: The plan for now is as follows: We are going to maintain the patient with a current planned Leblanc and suprapubic. I discussed with him at length. I am trying to encourage him to figure out if he can travel to another doctor, his initial problem also was finding insurance. He now has Medicare Insurance, and so perhaps this will be helpful to him in terms of finding another physician. I have mentioned several doctors to him; but he each time, he does not end up following through. So for today, the plan is just to change the catheter, and I did encourage the patient to consider other care. So risks and benefits were explained to the patient at length and regarding the retained foreign body previously and I expect today to be able to see it on x-ray. Exactly, how to retrieve it will be a different story. I do not think any risk for any further injury at this point. I feel that it is embedded, it is visible on the x-ray; it is not penetrating, it is not perforating. Further plans will follow. Salvador Tristan MD
== END 2017-10-06 17:00 | disposition home or self-care (01) ==
LOC: C.SDS 10:47
PROVIDERS: ATTEND Urology
DX: N35.9 Urethral stricture, unspecified (principal); R33.9 Retention of urine, unspecified; Z95.1 Presence of aortocoronary bypass graft; I25.10 Atherosclerotic heart disease of native coronary artery without angina pectoris; E11.9 Type 2 diabetes mellitus without complications; E78.5 Hyperlipidemia, unspecified; I10 Essential (primary) hypertension
CPT/HCPCS: 51702; J7120; Q9966

== ENCOUNTER 2017-11-24 10:04 | Day surgery (SDC) | payer MEDICARE ==
[2017-11-24 10:15] VITALS: BMI 22.1
[2017-11-24 10:45] LABS: BASO # 0.1 K/uL (0.0-0.2); BASO % 1.4 % (0.0-2.0); EOS # 0.2 K/uL (0.0-0.7); EOS % 4.5 % (0.0-4.0); HEMOGLOBIN 12.8 g/dL (12.0-18.0); LYMPH # 1.3 K/uL (1.0-4.3); LYMPH % 24.8 % (20.0-40.0); MEAN CELL VOLUME 85.8 fL (80.0-94.0); MEAN CORPUSCULAR HEMOGLOBIN 28.8 pg (27.0-31.0); MEAN CORPUSCULAR HGB CONC 33.5 g/dL (33.0-37.0); MEAN PLATELET VOLUME 7.2 fL (7.2-11.7); MONO # 0.4 K/uL (0.0-0.8); NEUT # 3.3 K/uL (1.8-7.0); NEUT % 61.3 % (50.0-75.0); NRBC % 0.1 % (0.0-2.0); RBC 4.45 Mil/uL (4.40-5.90); RED CELL DISTRIBUTION WIDTH 15.6 % (11.5-14.5); WHITE BLOOD COUNT 5.3 K/uL (4.8-10.8)
[2017-11-24 10:56] LABS: BLOOD UREA NITROGEN 13 mg/dL (9-20); CALCIUM 8.9 mg/dl (8.6-10.4); GFR AFRICAN-AMERICAN > 60; GFR NON-AFRICAN AMERICAN > 60
[2017-11-24] MEDS ORDERED: Midazolam 2 MG/2 ML VIAL ONE (13:32)
[2017-11-24] MEDS ORDERED: Propofol 10 mg/ml Inj (20 ML) ONE (13:32)
[2017-11-24] MEDS ORDERED: cefTRIAXone IV 1 gm in Dextros 50 ML IVPB ONE (13:39)
[2017-11-24] MEDS ORDERED: Iohexol 240 (50 ml) ONE (13:40)
[2017-11-24] MEDS ORDERED: HYDROmorphone 0.5 mg/0.5 ml ISec IVP PRN (14:04)
[2017-11-24] MEDS ORDERED: Lactated Ringer's 1,000 ML IV SCH (14:15)
[2017-11-24 14:57] VITALS: RESP 18
[2017-11-24 16:23] VITALS: BP 149/80; PULSE 86; TEMP 97.7; O2SAT 99
--- NOTE | 2017-12-08 08:22 | RAD ---
PROCEDURE: HISTORY: As Above COMPARISON: None TECHNIQUE: Total fluoroscopic time utilized during the procedure: 0.4 seconds. Total dose 0.1945 mGy cm squared FINDINGS: Submitted images from the current procedure: 1 Please refer to the physician's notes performing the procedure. IMPRESSION: Less than 1 hour fluoroscopic time utilized during performance of the procedure
--- NOTE | 2017-12-11 21:57 | OP ---
PROCEDURE DATE: 11/24/2017 PREOPERATIVE DIAGNOSES: Urinary retention, voiding dysfunction, hematuria, retained foreign body, urethral stricture disease. POSTOPERATIVE DIAGNOSES: Urinary retention, voiding dysfunction, hematuria, retained foreign body, urethral stricture disease. PROCEDURE: Removal of a Leblanc catheter, insertion of a Leblanc catheter, removal of suprapubic catheter and insertion of a new suprapubic catheter and a cystogram to confirm everything. SURGEON: Salvador Tristan MD. COMPLICATIONS: There were no complications. FINDINGS: I do note one little new finding is that there seems to be distal urethral reflux a low grade but about level 1 or 2 reflux. This was not previously well appreciated on multiple imaging. Today, we definitely see them reflux. DESCRIPTION OF PROCEDURE: After obtaining informed consent, the patient was placed on the table. Routine monitor was placed. Timeout was called to confirm the patient and positioning. We removed the old Leblanc catheter and inserted a new one and we removed the old suprapubic and inserted a new one and we did a cystogram to confirm the positioning and we note the presence of reflux. I do want to mention that on physical exam the abdomen is very encrusted. It is unclear why that should be, but there is no other abnormalities appreciated, again what is noted is video of a [place] sort of bladder. Further plans to follow. The patient tolerated the procedure well without complications. Salvador Tristan MD
--- NOTE | 2017-12-12 07:05 | HP ---
UROLOGY ADMISSION REASON FOR ADMISSION: To change the catheter. HISTORY OF PRESENT ILLNESS: This is a very pleasant gentleman who I know quite well. He has voiding dysfunction, urinary retention that he inherited from another urologist. Seen many, many previous notes. He is open from his prostate, but he has urethral stricture disease. He lives with a suprapubic catheter and now with Leblanc catheter. See the plan as below. I am hesitant to remove either one. Because I am concerned that he will develop recurrent scar, I have been trying to figure out with the patient about going to another urologist. In the meantime, he is here today for a change of the catheter. In the interim, he has also had a, when I did an internal optical urethrotomy, the cold knife broke. I can see it on the x-ray, but I have not been able to push it out. Right now, it is not causing any trouble. He has had multiple issues. In the interim, I have had a chance to discuss with him other options. He is having eye surgery. He has had about 7 or 8 procedures on one of his eyes and many on the other eye. Some kind of scar tissue, infection tissue. He is seeing other doctors in this regards, but there is concern now for blindness. Today, he is here just for a change of his stent for a Leblanc catheter and the suprapubic and then further plans will follow, see below. PAST MEDICAL AND SURGICAL HISTORY: As listed on the chart. He has coronary artery disease and cardiac bypass surgery (Note that he does have a lot of scarring on his skin wall). He reports many complications from that surgical procedures as well. Multiple other medical issues, his medical doctors currently. He has had multiple switches overtime. MEDICATIONS: See the list from the chart. ALLERGIES: . REVIEW OF SYSTEMS: As listed above. SOCIAL HISTORY: Otherwise unremarkable. I believe, he lives alone. He has a brother. Other than that unremarkable history. PHYSICAL EXAMINATION: GENERAL: No apparent distress. VITAL SIGNS: As noted in the chart. LUNGS: Clear. HEART: Normal heart sounds. ABDOMEN: Overall soft, nontender. No flank masses. CHEST WALL: There is a gigantic keloid noted. ABDOMINAL WALL: His suprapubic catheter is in good location but it is very incrusted. It is noteworthy, I have taken pictures overtime multiple times. The Leblanc catheter is in place, again, otherwise, unremarkable. DIAGNOSES: 1. Urinary retention. 2. Urethral stricture disease. 3. Some kind of underlying connective tissue, healing scar tissue disorder. That remains PLAN: As follows; we discussed the options to the patient in terms of getting second opinions of few different kinds 1. Infectious disease. 2. May be a connective tissue, may be a child specialist or the like. Meanwhile, he is undergoing his eye surgery intermittently. From the Urology standpoint today, we are going to change the Leblanc, change the suprapubic, and we can keep this working well. The idea of trying to eliminate both is the eventual plan, but how to implement this. Further plans, we will follow. Salvador Tristan MD
== END 2017-11-24 17:45 | disposition home or self-care (01) ==
LOC: C.SDS 10:04
PROVIDERS: ATTEND Urology
DX: Z46.6 Encounter for fitting and adjustment of urinary device (principal); N35.9 Urethral stricture, unspecified; N13.70 Vesicoureteral-reflux, unspecified; R33.9 Retention of urine, unspecified; R31.9 Hematuria, unspecified; I25.10 Atherosclerotic heart disease of native coronary artery without angina pectoris; Z95.1 Presence of aortocoronary bypass graft; I10 Essential (primary) hypertension; L94.9 Localized connective tissue disorder, unspecified; Z98.890 Other specified postprocedural states; Z79.82 Long term (current) use of aspirin; Z79.899 Other long term (current) drug therapy
CPT/HCPCS: 36415; 51102; 74430; 80048; 85025; J0696

== ENCOUNTER 2017-12-22 09:50 | Day surgery (SDC) | payer MEDICARE ==
[2017-12-22 09:51] VITALS: BMI 22.1
--- NOTE | 2017-12-22 11:26 | C.PDOC ---
History Of Present Illness 62yo male, sent to ER by Dr. Felice Tristan for a suprapubic catheter change. Patient states he had the catheter in place for 28 days " noted not draining well". Otherwise, patient denies fever, chills, abd. pain, N/V, hematuria, back pain, denies any offers active medical complaints. Time Seen by Provider: 12/22/17 10:27 Chief Complaint (Nursing): Male Genitourinary History Per: Patient History/Exam Limitations: no limitations Onset/Duration Of Symptoms: Days Current Symptoms Are (Timing): Still Present Associated Symptoms: denies: Fever, Chills, Urinary Symptoms Additional History Per: Patient Past Medical History Reviewed: Historical Data, Nursing Documentation, Vital Signs Vital Signs: Last Vital Signs Temp 97.6 F 12/22/17 16:30 Pulse 78 12/22/17 16:30 Resp 16 12/22/17 16:30 BP 139/81 12/22/17 16:30 Pulse Ox 100 12/22/17 16:30 - Medical History PMH: Anemia, Benign Prostatic Hyperplasia, HTN, Hypercholesterolemia, Hyperlipidemia Denies: Chronic Kidney Disease Surgical History: CABG - [facility] Procedures CONTROL BLEEDING IN GENITOURINARY TRACT, ENDO (11/21/15) DESTRUCTION OF BLADDER NECK, VIA OPENING (01/28/16) DILATION OF URETHRA WITH INTRALUMINAL DEVICE, ENDO (07/18/17) DILATION OF URETHRA, ENDO (07/18/17) DILATION OF URETHRA, VIA NATURAL OR ARTIFICIAL OPENING (03/22/16) DRAINAGE OF BLADDER WITH DRAINAGE DEVICE, PERC APPROACH (07/18/17) EXCISION OF DESCENDING COLON, ENDO, DIAGN (09/07/15) EXCISION OF LEFT UPPER LEG SKIN, EXTERNAL APPROACH, DIAGN (07/04/16) EXCISION OF STOMACH, ENDO, DIAGN (09/07/15) EXTIRPATION OF MATTER FROM BLADDER, ENDO (11/21/15) FLUOROSCOPY OF KIDNEYS, URETERS AND BLADDER (11/21/15) PLAIN RADIOGRAPHY OF BLADDER AND URETHRA (07/04/16) RELEASE URETHRA, ENDO (07/18/17) RESECTION OF PROSTATE, ENDO (01/01/16) Family History: States: Unknown Family Hx - Social History Hx Tobacco Use: No Hx Alcohol Use: No Hx Substance Use: No - Immunization History Hx Tetanus Toxoid Vaccination: (unk) Hx Influenza Vaccination: Yes Hx Pneumococcal Vaccination: (unk) Review Of Systems Except As Marked, All Systems Reviewed And Found Negative. Constitutional: Negative for: Fever, Chills Cardiovascular: Negative for: Chest Pain Respiratory: Negative for: Shortness of Breath Gastrointestinal: Negative for: Abdominal Pain Genitourinary: Positive for: Other (suprapubic catheter). Negative for: Dysuria , Frequency, Hematuria Physical Exam - Physical Exam Appears: Well, Non-toxic, No Acute Distress Skin: Warm, Dry, Ecchymosis (trace ecchymosis noted to lower abdominal wall) Eye(s): bilateral: PERRL Nose: No Flaring Oral Mucosa: Moist Neck: Trachea Midline, Supple Chest: Symmetrical Cardiovascular: Rhythm Regular, No Murmur, No JVD Respiratory: No Decreased Breath Sounds, No Accessory Muscle Use, No Stridor, No Wheezing Gastrointestinal/Abdominal: Soft, No Tenderness, No Distention, No Guarding, Other (suprapubic catheter in place; surrounding area is clean and dry. Residual urine in bag appears clear.) Back: No CVA Tenderness Extremity: Normal ROM, No Pedal Edema, No Deformity Neurological/Psych: Oriented x3, Normal Speech ED Course And Treatment O2 Sat by Pulse Oximetry: 99 (RA) Pulse Ox Interpretation: Normal Progress Note: [address] Felice Tristan who recommends admission to OR for scheduled procedure now. Disposition - Disposition Disposition: HOSPITALIZED Disposition Time: 11:25 Condition: STABLE - Clinical Impression Clinical Impression: Suprapubic catheter - PA / HAUL DRIVER / Resident Statement MD/DO has reviewed & agrees with the documentation as recorded. - Scribe Statement The provider has reviewed the documentation as recorded by the [place] Provider Attestation: All medical record entries made by the [place] were at my direction and personally dictated by me. I have reviewed the chart and agree that the record accurately reflects my personal performance of the history, physical exam, medical decision making, and the department course for this patient. I have also personally directed, reviewed, and agree with the discharge instructions and disposition.
[2017-12-22] MEDS ORDERED: cefTRIAXone IV 1 gm in Dextros 50 ML IVPB ONE (12:25)
[2017-12-22] MEDS ORDERED: Propofol 10 mg/ml Inj (20 ML) ONE (12:38)
[2017-12-22] MEDS ORDERED: Midazolam 2 MG/2 ML VIAL ONE ×2 (12:38→12:52)
[2017-12-22 14:31] VITALS: TEMP 97.6
[2017-12-22 16:46] VITALS: RESP 16
[2017-12-22 16:58] VITALS: BP 139/81; PULSE 78
[2017-12-22 18:07] VITALS: O2SAT 99
--- NOTE | 2018-01-03 01:45 | OP ---
PROCEDURE DATE: 12/22/2017 PREOPERATIVE DIAGNOSES: Urinary retention, urethral stricture, severe scar disease, recurrent infection, and retained foreign body. POSTOPERATIVE DIAGNOSES: Urinary retention, urethral stricture, severe scar disease, recurrent infection, and retained foreign body. PROCEDURES: Removal of the cystostomy tube and insertion of cystostomy tube, removal of Leblanc catheter and insertion of Leblanc catheter. COMPLICATIONS: There were no complications. ESTIMATED BLOOD LOSS: Less than 10 mL. INDICATIONS: See history and physical for further details. DESCRIPTION OF PROCEDURE: After obtaining informed consent, the patient was placed on the table. Routine monitors were placed . We removed the old Leblanc catheter and placed a new one. We removed the old cystostomy tube and inserted a new one. The patient tolerated without complication. The bladder was irrigated well. Further plans to follow . Salvador Tristan MD
--- NOTE | 2018-01-03 08:27 | HP ---
REASON FOR ADMISSION: To change the catheter. HISTORY OF PRESENT ILLNESS: Mr. Hines is a very pleasant gentleman who has been in a reasonable state of health. He has significant scar disease. Both in his urethra and just in his body in general. See the physical exam listed below. He has had multiple eye operations. He has had some kind of healing issue. PAST MEDICAL AND SURGICAL HISTORY: As listed in the chart. treatment for his eyes. He had about 5 or 6, may be more operations for his eyes for cataracts. From the urology standpoint, he has had multiple procedures, please see below. He also had bypass surgery. MEDICATIONS: See the chart. ALLERGIES: SEE THE CHART. SOCIAL HISTORY: He lives alone. He has a brother somewhere. He is retired. REVIEW OF SYSTEMS: As listed above, noncontributory. Although I do want to mention that he is having the possibility, I had the chance to speak to a professional model and an weight loss centre manager the possibility of going blind . He has some kind of poor healing, maybe a connective tissue disorder, it's not clearly defined infections, etc. PHYSICAL EXAMINATION: GENERAL: A well-nourished male in no apparent distress. VITAL SIGNS: Within normal limits. See chart. LUNGS: Clear. HEART: S1 and S2. ABDOMEN: Soft and nontender. His cystostomy tube site is noted. There is tremendous amount of debris around it. Tremendous. There's no it not being cared for. But when I speak to the patient he has a remarkable amount of encrustation. He has normal male phallus with no discharge. No testicular masses. He has an indwelling suprapubic catheter and an indwelling Leblanc catheter. Rectal exam is deferred for now. DIAGNOSES: Urinary retention, voiding dysfunction, urethral stricture disease, baseline scar disease. PLAN: As follows: 1. The patient is today just going to have a change of the Leblanc and change of his suprapubic catheter and possibly a cystogram. I have discussed with the patient some other options that are available. In fact, we are making some progress. We are trying to get the patient to a second opinion, but it is very limited to time. My real best recommendation for this patient is for sure just to leave an indwelling suprapubic catheter, not even a Leblanc catheter. I am very worried that if we were to take the Leblanc catheter out, he will scar down immediately and have a urethral stricture and then not be able to get back in, so therefore, of note, an extra foreign body actually is a risk for infection, etc. At this point, we have been leaving it in. My real recommendation for the patient as discussed many times is that I would not recommend even having a repair. For fear of the fact that he has a very heavy scar former. The patient and I am also worried about the potential for infection. The patient is also very worried about that and even also worried that his eyes are being affected. Therefore, we are going to see if we could do our best to ultimately remove the Leblanc catheter via the urethra. I am trying to work on getting him another opinion in this regard. The plans for today are as follows: 1. Antibiotics. 2. Change the cystostomy tube. 3. Change the Leblanc. Further plans to follow. I do want to mention that the patient and I discussed that, again, how he has a foreign body, he has a nice bleed from the IOU that is broken, I can see it by x-ray criteria, but I cannot feel it. Perhaps, if he ever has urethral stricture repair, somebody will find it, but in the meantime I have explained to the patient in regards to the possibility that there is a bulla. I am not necessarily a source for infection, although it certainly did, as this could be the source for infection. There is no definite evidence of a specific problem. For today, we are going to change everything and then start new . Salvador Tristan MD
== END 2017-12-22 17:45 | disposition home or self-care (01) ==
LOC: C.ER 09:50 → C.SDS 11:26
PROVIDERS: ATTEND Urology
DX: R33.8 Other retention of urine (principal); N35.9 Urethral stricture, unspecified; N39.0 Urinary tract infection, site not specified; Z43.5 Encounter for attention to cystostomy; Z46.6 Encounter for fitting and adjustment of urinary device
CPT/HCPCS: 51705; 99285; J0696; J2250; J2704; J3010

== ENCOUNTER 2018-03-30 06:00 | Emergency (ER) | payer MEDICARE ==
[2018-03-30 06:00] VITALS: BMI 22.1
[2018-03-30 06:18] VITALS: RESP 20; TEMP 99.1
--- NOTE | 2018-03-30 07:01 | C.PDOC ---
History Of Present Illness 62-year-old male, presents to the emergency department to get his suprapubic fraser catheter checked. Patient is unsure if it is well. He has had many prior evaluations of the same complaint. Denies any hematuria, nausea/vomiting or fever. Time Seen by Provider: 03/30/18 06:56 Chief Complaint (Nursing): Male Genitourinary History Per: Patient History/Exam Limitations: no limitations Past Medical History Reviewed: Historical Data, Nursing Documentation, Vital Signs Vital Signs: Last Vital Signs Temp 99.1 F 03/30/18 06:09 Pulse 70 03/30/18 06:09 Resp 20 03/30/18 06:09 BP 166/80 H 03/30/18 06:09 Pulse Ox 97 03/30/18 06:09 - Medical History PMH: Anemia, Benign Prostatic Hyperplasia, HTN, Hypercholesterolemia, Hyperlipidemia Surgical History: CABG - [facility] Procedures CONTROL BLEEDING IN GENITOURINARY TRACT, ENDO (11/21/15) DESTRUCTION OF BLADDER NECK, VIA OPENING (01/28/16) DILATION OF URETHRA WITH INTRALUMINAL DEVICE, ENDO (07/18/17) DILATION OF URETHRA, ENDO (07/18/17) DILATION OF URETHRA, VIA NATURAL OR ARTIFICIAL OPENING (03/22/16) DRAINAGE OF BLADDER WITH DRAINAGE DEVICE, PERC APPROACH (07/18/17) EXCISION OF DESCENDING COLON, ENDO, DIAGN (09/07/15) EXCISION OF LEFT UPPER LEG SKIN, EXTERNAL APPROACH, DIAGN (07/04/16) EXCISION OF STOMACH, ENDO, DIAGN (09/07/15) EXTIRPATION OF MATTER FROM BLADDER, ENDO (11/21/15) FLUOROSCOPY OF KIDNEYS, URETERS AND BLADDER (11/21/15) PLAIN RADIOGRAPHY OF BLADDER AND URETHRA (07/04/16) RELEASE URETHRA, ENDO (07/18/17) RESECTION OF PROSTATE, ENDO (01/01/16) Family History: States: No Known Family Hx - Social History Hx Tobacco Use: No Hx Alcohol Use: No Hx Substance Use: No - Immunization History Hx Tetanus Toxoid Vaccination: (unk) Hx Influenza Vaccination: Yes Hx Pneumococcal Vaccination: (unk) Review Of Systems Constitutional: Negative for: Fever Gastrointestinal: Negative for: Nausea, Vomiting Genitourinary: Negative for: Dysuria, Frequency, Hematuria Neurological: Negative for: Weakness, Numbness, Headache Physical Exam - Physical Exam Appears: Non-toxic, No Acute Distress Skin: Warm, Dry Head: Atraumatic, Normacephalic Eye(s): bilateral: Normal Inspection Nose: Normal Oral Mucosa: Moist Lips: Normal Appearing Neck: Normal ROM Chest: Symmetrical Cardiovascular: Rhythm Regular, No Murmur Respiratory: Normal Breath Sounds, No Decreased Breath Sounds, No Accessory Muscle Use Gastrointestinal/Abdominal: Soft, No Tenderness, No Guarding, No Rebound Male Genital: Other (Suprapubic catheter draining urine., normal) Extremity: Normal ROM, No Deformity Neurological/Psych: Oriented x3, Normal Speech ED Course And Treatment O2 Sat by Pulse Oximetry: 97 Pulse Ox Interpretation: Normal (RA) Medical Decision Making Medical Decision Making: concerned his suprapubic cath is not draining well draining well flushed for pt to prove proper function many prior evals for same. no UA sent Disposition Doctor Will See Patient In The: Office Counseled Patient/Family Regarding: Studies Performed, Diagnosis - Disposition Referrals: Prince Vicente MD [Staff Provider] - Disposition: HOME/ ROUTINE Disposition Time: 07:01 Condition: GOOD Additional Instructions: normal suprapubic cath care Instructions: How to Care for Your Suprapubic Urinary Catheter Forms: [facility] (Sudanese) - Clinical Impression Clinical Impression: Complication, suprapubic catheter obstruction - Scribe Statement The provider has reviewed the documentation as recorded by the Scribe (Dionicio Poole) Provider Attestation: All medical record entries made by the Scribe were at my direction and personally dictated by me. I have reviewed the chart and agree that the record accurately reflects my personal performance of the history, physical exam, medical decision making, and the department course for this patient. I have also personally directed, reviewed, and agree with the discharge instructions and disposition.
[2018-03-30 07:07] VITALS: BP 134/78; PULSE 88
[2018-03-30 10:37] VITALS: O2SAT 97
== END 2018-03-30 07:06 | disposition home or self-care (01) ==
LOC: C.ER 06:00
DX: T83.091A Other mechanical complication of indwelling urethral catheter, initial encounter (principal); Y84.8 Other medical procedures as the cause of abnormal reaction of the patient, or of later complication, without mention of misadventure at the time of the procedure; Y92.89 Other specified places as the place of occurrence of the external cause

== ENCOUNTER 2018-09-29 07:30 | Outpatient (CLI) | payer MEDICARE | END 2018-09-29 07:31 | disposition home or self-care (01) | LOC: C.CARD 07:30 | DX: R07.9 Chest pain, unspecified (principal) ==